=== PATIENT | female | born 1935 | race Caucasian/White ===

== ENCOUNTER 2023-08-03 23:16 | Emergency (ER) | payer MEDICARE, SELFPAY ==
--- NOTE | ~2023-08-03 | CT_ITS ---
EXAMINATION: CT HEAD WITHOUT CONTRAST CLINICAL INFORMATION: Fall. Pain. COMPARISON: None available. TECHNIQUE: Contiguous axial imaging was performed through the head, facial bones and cervical spine without intravenous administration of contrast. Sagittal and coronal reformatted images also obtained. This CT examination was performed using dose optimization techniques as appropriate, variously including the following: *Automated exposure control *Adjustment of mA and/or kV according to patient size (this includes techniques or standardized protocols for targeted exams where dose is matched to indication/reason for exam; i.e. extremities or head) *Use of iterative reconstruction technique DLP: 1344 mGy-cm FINDINGS: There is cerebral volume loss with prominence of the lateral and the third ventricles. The cortical sulci are widened appropriately. The fourth ventricle and basal cisterns are normally outlined. There is extensive bilateral periventricular and central white matter diminished attenuation. There is no acute territorial defect, hemorrhage or midline shift. The extra-axial spaces are unremarkable. Calvarium/scalp: Intact. Facial bones: No fracture is seen. The maxillofacial sinuses and mastoids are clear. Orbital structures are unremarkable. The soft tissues are grossly unremarkable. Cervical spine: There is grade 1 anterolisthesis C6 over C7. There is diffuse fpto-mn-zmkraqfn cervical disc degenerative change with loss of disc space, endplate change and posterior osteophytes associated with diffuse moderate facet osteoarthritic hypertrophic change with multilevel mild spinal canal and hlol-av-tsjtsckv neuroforaminal narrowing. The bony structures are osteopenic/heterogeneous. No fracture is seen. The soft tissues are unremarkable. Visualized upper lung graham are clear. CT/CT cervical spine wo IV con IMPRESSION: 1. No acute intracranial process seen. Age-related cerebral volume loss with chronic small vessel ischemic changes. 2. There is no acute maxillofacial, nasal or mandibular fracture. 3. Grade 1 anterolisthesis C6 over C7. There are degenerative disc changes and facet joint arthropathy throughout cervical spine. No visible acute fracture or dislocation seen.
--- NOTE | ~2023-08-03 | CT_ITS ---
EXAMINATION: CT HEAD WITHOUT CONTRAST CLINICAL INFORMATION: Fall. Pain. COMPARISON: None available. TECHNIQUE: Contiguous axial imaging was performed through the head, facial bones and cervical spine without intravenous administration of contrast. Sagittal and coronal reformatted images also obtained. This CT examination was performed using dose optimization techniques as appropriate, variously including the following: *Automated exposure control *Adjustment of mA and/or kV according to patient size (this includes techniques or standardized protocols for targeted exams where dose is matched to indication/reason for exam; i.e. extremities or head) *Use of iterative reconstruction technique DLP: 1344 mGy-cm FINDINGS: There is cerebral volume loss with prominence of the lateral and the third ventricles. The cortical sulci are widened appropriately. The fourth ventricle and basal cisterns are normally outlined. There is extensive bilateral periventricular and central white matter diminished attenuation. There is no acute territorial defect, hemorrhage or midline shift. The extra-axial spaces are unremarkable. Calvarium/scalp: Intact. Facial bones: No fracture is seen. The maxillofacial sinuses and mastoids are clear. Orbital structures are unremarkable. The soft tissues are grossly unremarkable. Cervical spine: There is grade 1 anterolisthesis C6 over C7. There is diffuse xobq-co-uagbnhyg cervical disc degenerative change with loss of disc space, endplate change and posterior osteophytes associated with diffuse moderate facet osteoarthritic hypertrophic change with multilevel mild spinal canal and xdwk-un-ymopjoqg neuroforaminal narrowing. The bony structures are osteopenic/heterogeneous. No fracture is seen. The soft tissues are unremarkable. Visualized upper lung graham are clear. CT/CT head/brain wo IV con IMPRESSION: 1. No acute intracranial process seen. Age-related cerebral volume loss with chronic small vessel ischemic changes. 2. There is no acute maxillofacial, nasal or mandibular fracture. 3. Grade 1 anterolisthesis C6 over C7. There are degenerative disc changes and facet joint arthropathy throughout cervical spine. No visible acute fracture or dislocation seen.
--- NOTE | ~2023-08-03 | CT_ITS ---
EXAMINATION: CT HEAD WITHOUT CONTRAST CLINICAL INFORMATION: Fall. Pain. COMPARISON: None available. TECHNIQUE: Contiguous axial imaging was performed through the head, facial bones and cervical spine without intravenous administration of contrast. Sagittal and coronal reformatted images also obtained. This CT examination was performed using dose optimization techniques as appropriate, variously including the following: *Automated exposure control *Adjustment of mA and/or kV according to patient size (this includes techniques or standardized protocols for targeted exams where dose is matched to indication/reason for exam; i.e. extremities or head) *Use of iterative reconstruction technique DLP: 1344 mGy-cm FINDINGS: There is cerebral volume loss with prominence of the lateral and the third ventricles. The cortical sulci are widened appropriately. The fourth ventricle and basal cisterns are normally outlined. There is extensive bilateral periventricular and central white matter diminished attenuation. There is no acute territorial defect, hemorrhage or midline shift. The extra-axial spaces are unremarkable. Calvarium/scalp: Intact. Facial bones: No fracture is seen. The maxillofacial sinuses and mastoids are clear. Orbital structures are unremarkable. The soft tissues are grossly unremarkable. Cervical spine: There is grade 1 anterolisthesis C6 over C7. There is diffuse pmbt-il-pugltqzo cervical disc degenerative change with loss of disc space, endplate change and posterior osteophytes associated with diffuse moderate facet osteoarthritic hypertrophic change with multilevel mild spinal canal and yoim-yp-eaetapta neuroforaminal narrowing. The bony structures are osteopenic/heterogeneous. No fracture is seen. The soft tissues are unremarkable. Visualized upper lung graham are clear. CT/CT facial bones wo IV con IMPRESSION: 1. No acute intracranial process seen. Age-related cerebral volume loss with chronic small vessel ischemic changes. 2. There is no acute maxillofacial, nasal or mandibular fracture. 3. Grade 1 anterolisthesis C6 over C7. There are degenerative disc changes and facet joint arthropathy throughout cervical spine. No visible acute fracture or dislocation seen.
[2023-08-03 23:16] VITALS: BP 152/100; BP 200/112; PULSE 66; PULSE 80; RESP 18; TEMP 36.3; O2SAT 95; O2SAT 96; BMI 24.6
--- NOTE | 2023-08-03 23:24 | PC.NURSE ---
pt biba from [facility], a&ox4, ambulatory off stretcher. reports onset of nose bleed 1 hour ago that was uncontrolled. bleeding now controlled at this time. pt reports having fall monday night and is noted to have large hematoma to the right eye. pt denies use of blood thinners.
--- NOTE | 2023-08-03 23:36 | PC.NURSE ---
pt nose began to slowly bleed again, alligator clamps placed on nose.
[2023-08-04] VITALS (7 sets, daily range): BP systolic 176–204; BP diastolic 90–107; PULSE 61–69; RESP 16–18; TEMP 36.4–36.7; O2SAT 94–97
[2023-08-04] MEDS: Labetalol HCL 100 MG/20 ML VIAL 10 MG IVPUSH (00:28)
[2023-08-04 00:30] LABS: MANUAL DIFF FLAG NO
[2023-08-04 00:34] LABS: Basophils Percent Auto 0.6 % (0-2); Eosinophils Absolute Auto 0.2 X10*3/uL (0.0-0.4); Eosinophils Percent Auto 3.8 % (0-4); Hematocrit 39.9 % (37.0-47.0); Hemoglobin 13.9 g/dl (12.0-16.0); Imm Gran Abs Auto 0.01 X10*3/uL (0.00-0.03); Imm Gran Pct Auto 0.2 % (0.0-0.4); Lymphocytes Absolute Auto 1.6 X10*3/uL (1.2-4.9); Lymphocytes Percent Auto 25.4 % (20-40); Mean Corpuscular HGB Conc 34.8 g/dl (31.0-35.0); Mean Corpuscular Hemoglobin 35.4 pg (27.0-33.0); Mean Corpuscular Volume 101.5 fL (80.0-98.0); Mean Platelet Volume 9.6 fL (9.4-12.3); Monocytes Absolute Auto 0.7 X10*3/uL (0.1-1.2); Neutrophils Absolute Auto 3.7 x10*3/uL (2.0-8.3); Platelet Count 188 X10*3/uL (160-400); Red Blood Count 3.93 X10*6/uL (4.20-5.50); Red Cell Distribution Width 11.4 % (11.0-16.0); White Blood Count 6.3 X10*3/uL (4.8-10.8)
--- NOTE | 2023-08-04 00:35 | ED_ITS ---
HPI - General Adult General Chief complaint: Epistaxis Stated complaint: epistaxis Time Seen by Provider: 08/03/23 23:50 Source: patient, RN notes reviewed and old records reviewed Mode of arrival: ambulatory Limitations: no limitations History of Present Illness HPI narrative: 88-year-old female past medical history significant for hypertension, hyperlipidemia presents for evaluation of nosebleed. Patient reports that her nose started to bleed of the right nostril 1 hour prior to arrival She is not on any blood thinners, aspirin or Plavix She reports that she fell 6 days ago on Monday after getting up to go to the bathroom in the middle of the night She struck the right side of her face when she fell She did not have any pain so she did not seek medical attention at that time She noticed bruising the following morning and redness around her eye She reports that she has felt well since the fall but today noticed a nosebleed that would not stop Patient continues to deny any pain including to the nose No other complaints or concerns at this time Related Data Allergies Allergy/AdvReac Type Severity Reaction Status Date / Time No Known Allergies Allergy Verified 08/03/23 23:21 [No Known Allergies*] Review of Systems 2 Constitutional: Constitutional: Denies body ache(s), Denies chills, Denies fever(s) and Denies headache(s) Eyes: Eyes: Denies blurry vision, Denies exophthalmos, Denies change in vision, Denies diplopia, Denies eye discharge and Denies eye pain Comments: Redness to the eye ENT: Denies dizziness, Denies headache(s) and Denies sore throat Cardiovascular: Cardiovascular: Denies chest pain and Denies dyspnea Respiratory: Respiratory: Denies cough and Denies dyspnea Gastrointestinal: Gastrointestinal: Denies abdominal pain, Denies nausea and Denies vomiting Genitourinary: Genitourinary: Denies flank pain Musculoskeletal: Musculoskeletal: Denies back pain Integumentary/Breasts: Skin/Breast: Denies rash Neurologic: Denies dizziness and Denies headache(s) Psychiatric: Psychiatric: Denies suicidal ideation [facility] Social History Social History Alcohol intake: current Alcohol intake frequency: holidays/special occasions only Smoked in Last 30 Days: No Use of substances other than those prescribed or required for medical reasons: No Advance Directives: No Advance Directives Information Provided: Yes Do you have a plan to hurt others: No Plan Physical Exam ED Vital Signs: Vital Signs - 24 hr 08/03/23 23:16 08/04/23 00:27 08/04/23 00:28 Temperature 97.3 F 97.6 F Pulse Rate 66 61 61 Respiratory Rate 18 17 Blood Pressure 200/112 H 204/107 H 204/107 H Pulse Oximetry 96 96 Oxygen Delivery Method Room Air Room Air 08/04/23 00:45 08/04/23 00:54 08/04/23 01:39 Temperature 98.0 F Pulse Rate 64 69 63 Respiratory Rate 18 16 18 Blood Pressure 190/91 H 179/90 H 193/95 H Pulse Oximetry 94 97 94 Oxygen Delivery Method Room Air Room Air Room Air BMI result Body Mass Index 24.6 Const General: healthy appearing, comfortable, no acute distress, alert and awake Nutritional Appearance: well nourished Orientation/consciousness: patient oriented x3 HENMT Other: Ecchymosis mostly to the right side of the face in the right periorbital region. There is some edema to the bridge of the nose with no lacerations or wounds Head: No normocephalic and No atraumatic Throat: Yes posterior oropharynx normal Eyes Periorbital: periorbital findings abnormal Eyelids: Yes eyelids normal Conjunctivae: conjunctival abnormal right subconjunctival hemorrhage Corneas: corneas normal Pupils: Equal, round and reactive pupils present EOM: EOMs intact bilaterally (Without entrapment, nystagmus or pain) Neck Neck: Yes full ROM Resp Effort & Inspection: normal respiratory effort, able to speak in complete sentences and not labored GI Inspection: No distended Palpation (GI): Soft to palpation, not firm, nontender, no guarding and not rigid Skin General skin exam: elasticity normal Neuro General: patient oriented x3 Cranial nerves: Yes CN's II-XII intact bilaterally, Yes Equal, round and reactive pupils present and Yes Bilaterally intact EOM present Cognition (Neuro): normal cognition Extrem Other: Moving all extremities well without any obvious deformities Course Reevaluation(s) Reevaluation #1: Patient's blood pressure has improved to 179/90. On re-evaluation, her epistaxis has stopped. Time: 01:21 Medications Administered Discontinued Medications Generic Name Dose Route Start Last Admin Trade Name Freq PRN Reason Stop Dose Admin Labetalol HCl 10 mg 08/03/23 23:59 08/04/23 00:28 Labetalol Hcl 100 Mg/20 Ml Vial IVPUSH 08/04/23 00:00 10 mg ONCE ONE Administration Medical Decision Making Medical Decision Making [facility] Narrative: 88-year-old female presents for evaluation of nosebleed. She had a fall 6 days ago but no other recent trauma. She has not anticoagulated for basic labs to check platelets, coags and blood counts. Her blood pressure is significantly elevated to 200/112 and this is likely contributing to her epistaxis at this time. The patient's epistaxis did sustain with direct pressure started shortly after as the patient was picking her nose. Plan to continue direct pressure. Will order CT scan of the brain, facial bones and cervical spine given the fall with obvious facial trauma Differential Diagnosis Differential Diagnoses: The differential diagnosis associated with the presentation includes Hypertension Hypertensive urgency Hypertensive crisis Nasal fracture Epistaxis Intracranial hemorrhage Cervical fracture Lab Data 08/04/23 00:24 08/04/23 00:24 Labs: Lab Results 08/04/23 Range/Units 00:24 WBC 6.3 (4.8-10.8) X10*3/uL RBC 3.93 L (4.20-5.50) X10*6/uL Hgb 13.9 (12.0-16.0) g/dl Hct 39.9 (37.0-47.0) % MCV 101.5 H (80.0-98.0) fL MCH 35.4 H (27.0-33.0) pg MCHC 34.8 (31.0-35.0) g/dl RDW 11.4 (11.0-16.0) % Plt Count 188 (160-400) X10*3/uL MPV 9.6 (9.4-12.3) fL Immature Gran % (Auto) 0.2 (0.0-0.4) % Neut % (Auto) 59.0 (45-73) % Lymph % (Auto) 25.4 (20-40) % [place] % (Auto) 11.0 (2-11) % Eos % (Auto) 3.8 (0-4) % Baso % (Auto) 0.6 (0-2) % Lymph # (Auto) 1.6 (1.2-4.9) X10*3/uL [place] # (Auto) 0.7 (0.1-1.2) X10*3/uL Eos # (Auto) 0.2 (0.0-0.4) X10*3/uL Baso # (Auto) 0.0 (0.0-0.2) X10*3/uL Abs Immat Gran (auto) 0.01 (0.00-0.03) X10*3/uL Absolute Neuts (auto) 3.7 (2.0-8.3) x10*3/uL Absolute Nucleated RBC 0.000 (0.0-0.012) X10*3/uL Nucleated RBC % (auto) 0.0 (0.0-0.2) /100WBC PT 13.2 (11.1-13.3) SEC INR 1.1 (0.9-1.1) APTT 29.5 (26.0-36.8) SEC Sodium 136 (135-145) mmol/L Potassium 3.7 (3.3-5.1) mmol/L Chloride 100 (96-108) mmol/L Carbon Dioxide 28 (22-29) mmol/L Anion Gap 12 (12-20) BUN 13 (9-16) mg/dL Creatinine 0.83 (0.5-1.4) mg/dL Estim Creat Clear Calc 38.5 Estimated GFR > 60 Random Glucose 106 (60-115) mg/dL Calcium 8.7 (8.4-10.2) mg/dL Total Bilirubin 0.4 (0.0-1.0) mg/dL AST 24 (5-31) U/L ALT 18 (0-31) U/L Alkaline Phosphatase 64 (39-117) U/L Total Protein 6.1 L (6.5-8.0) g/dL Albumin 3.6 (3.5-5.0) g/dL Lipase 33 (8-78) U/L Discharge Plan Discharge Clinical Impression: Epistaxis, RONDA (subconjunctival hemorrhage) Patient Disposition: Home, Self-Care Instructions: Nosebleed (ED) Additional Instructions: Your workup in the ER today was reassuring. Your CT scans did not show any significant traumatic injuries. Your blood pressure was significantly elevated today and improved with medication Follow-up with your outpatient providers to have your blood pressure checked If your nose starts to bleed again, you may use Afrin up to twice a day for 3 days You may also use a humidifier next to her bed at night which may help prevent nosebleeds Print Language: British
[2023-08-04 00:41] LABS: INTERNATIONAL NORM RATIO 1.1 (0.9-1.1); Prothrombin Time 13.2 SEC (11.1-13.3)
[2023-08-04 00:43] LABS: Partial Thromboplastin Time 29.5 SEC (26.0-36.8)
[2023-08-04 01:02] LABS: Alanine Aminotransferase 18 U/L (0-31); Albumin Level 3.6 g/dL (3.5-5.0); Alkaline Phosphatase 64 U/L (39-117); Anion Gap 12 (12-20); Aspartate Amino Transferase 24 U/L (5-31); Bilirubin Total 0.4 mg/dL (0.0-1.0); Blood Urea Nitrogen 13 mg/dL (9-16); Calcium 8.7 mg/dL (8.4-10.2); Carbon Dioxide 28 mmol/L (22-29); Chloride 100 mmol/L (96-108); Creatinine Clr Calc Pharmacy 38.5; Estimated Glomerular Filt Rate > 60; Glucose Random 106 mg/dL (60-115); Lipase 33 U/L (8-78); Potassium 3.7 mmol/L (3.3-5.1); Sodium 136 mmol/L (135-145); Total Protein 6.1 g/dL (6.5-8.0)
[2023-08-04] MEDS: Labetalol HCL 100 MG/20 ML VIAL IVPUSH (01:51)
== END 2023-08-04 02:22 | disposition home or self-care (01) ==
PROVIDERS: Physician Assistant; Emergency Provider Internal Medicine; PCP Internal Medicine
DX: R04.0 Epistaxis (principal); H11.31 Conjunctival hemorrhage, right eye; I10 Essential (primary) hypertension; Z91.81 History of falling
CPT/HCPCS: 36415; 70450; 70486; 72125; 80053; 83690; 85025; 85610; 85730; 96374; 96376; 99284; J1920

== ENCOUNTER 2023-12-07 20:53 | Emergency (ER) | payer MEDICARE, SELFPAY ==
--- NOTE | ~2023-12-07 | CT_ITS ---
EXAMINATION: CT HEAD WITHOUT CONTRAST CT CERVICAL SPINE WITHOUT CONTRAST CLINICAL INFORMATION: Fall. Altered mental status. COMPARISON: CT imaging from 08/04/2023. TECHNIQUE: Contiguous axial imaging was performed from the skullbase to vertex without intravenous administration of contrast. Multidetector helical imaging was performed through the cervical spine. This CT examination was performed using dose optimization techniques as appropriate, variously including the following: *Automated exposure control *Adjustment of mA and/or kV according to patient size (this includes techniques or standardized protocols for targeted exams where dose is matched to indication/reason for exam; i.e. extremities or head) *Use of iterative reconstruction technique DLP: 1075 mGy-cm. FINDINGS: HEAD: There is no evidence of acute intracranial hemorrhage or territorial infarction. No abnormal mass effect or midline shift is seen. No extra-axial fluid collections are identified. Moderate diffuse brain parenchymal volume loss again evident with stable ex vacuo prominence of the ventricles. 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 Moderate to severe chronic white matter microangiopathy noted. The osseous structures and soft tissues are normal. The mastoid air cells and visualized portions of the paranasal sinuses are well aerated. Moderate degenerative changes of the temporomandibular joints. CERVICAL SPINE: No acute fracture is identified in the cervical spine significant disc space narrowing retrosubluxation again evident at the C5-C6 level. Stable mild anterolisthesis at the C7-T1 level. Advanced multilevel hypertrophic facet arthropathy is unchanged. Diffuse bony demineralization evident. There is severe spondylosis exuberant endplate eburnation at the T2-T3 level. The atlantoaxial articulation is normally maintained. Mild scattered areas of venous air in the neck soft tissues. Subsegmental atelectatic changes in the lungs. CT/CT cervical spine wo IV con IMPRESSION: 1. No acute intracranial pathology. 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 2. No evidence of acute cervical spine traumatic injury. Multilevel cervical spondylosis, most severe at the C5-C6 level, as on prior imaging. Diffuse bony demineralization. Exuberant facet arthrosis. Electronically signed by: Alvin Doll MD 12/07/2023 09:45 PM EDT
[2023-12-07 21:18] VITALS: BP 129/86; PULSE 60; O2SAT 98
[2023-12-07 21:18] LABS: MANUAL DIFF FLAG NO
[2023-12-07 21:22] LABS: Basophils Percent Auto 0.7 % (0-2); Eosinophils Absolute Auto 0.2 X10*3/uL (0.0-0.4); Eosinophils Percent Auto 2.8 % (0-4); Hematocrit 35.7 % (37.0-47.0); Hemoglobin 12.5 g/dl (12.0-16.0); Imm Gran Abs Auto 0.01 X10*3/uL (0.00-0.03); Imm Gran Pct Auto 0.2 % (0.0-0.4); Lymphocytes Absolute Auto 1.5 X10*3/uL (1.2-4.9); Lymphocytes Percent Auto 23.9 % (20-40); Mean Corpuscular Hemoglobin 33.2 pg (27.0-33.0); Mean Corpuscular Volume 94.7 fL (80.0-98.0); Mean Platelet Volume 9.2 fL (9.4-12.3); Monocytes Absolute Auto 0.7 X10*3/uL (0.1-1.2); Neutrophils Absolute Auto 3.7 x10*3/uL (2.0-8.3); Neutrophils Percent Auto 61.4 % (45-73); Platelet Count 178 X10*3/uL (160-400); Red Blood Count 3.77 X10*6/uL (4.20-5.50); Red Cell Distribution Width 12.7 % (11.0-16.0); White Blood Count 6.1 X10*3/uL (4.8-10.8)
[2023-12-07 21:23] VITALS: BP 115/66; PULSE 55; RESP 16; TEMP 36.3; O2SAT 94
[2023-12-07 21:38] LABS: Ethanol 238 mg/dL
[2023-12-07 21:42] LABS: Alanine Aminotransferase 12 U/L (0-31); Albumin Level 3.3 g/dL (3.5-5.0); Alkaline Phosphatase 66 U/L (39-117); Anion Gap 10 (12-20); Aspartate Amino Transferase 19 U/L (5-31); Bilirubin Direct 0.2 mg/dL (0.0-0.5); Bilirubin Total 0.4 mg/dL (0.0-1.0); Blood Urea Nitrogen 7 mg/dL (9-16); Calcium 8.2 mg/dL (8.4-10.2); Carbon Dioxide 27 mmol/L (22-29); Chloride 102 mmol/L (96-108); Estimated Glomerular Filt Rate > 60; Glucose Random 98 mg/dL (60-115); Magnesium 1.9 mg/dL (1.6-2.6); Potassium 3.4 mmol/L (3.3-5.1); Sodium 136 mmol/L (135-145); Total Protein 5.7 g/dL (6.5-8.0)
[2023-12-07 21:55] VITALS: BP 121/67; PULSE 53; RESP 16; TEMP -17.7; TEMP 0; O2SAT 93; BMI 24.5
--- NOTE | 2023-12-08 00:11 | ED.FALL ---
HPI - Fall General Chief Complaint: Fall Stated Complaint: ETOH w/ fall,ams Time Seen by Provider: 12/07/23 23:56 Source: patient, family and EMS Mode of arrival: EMS Limitations: physical limitation History of Present Illness ED Provider: Dr. Shona Canales HPI Narrative: Patient comes to the emergency room via ambulance from assisted living for a fall. Patient admits that she has been drinking alcohol and fell. Per EMS, there was 1 empty bottle of wine next to the patient. Patient had an unwitnessed fall, denies taking any blood thinners. Patient's family at bedside. Related Data Allergies Allergy/AdvReac Type Severity Reaction Status Date / Time No Known Allergies Allergy Verified 12/07/23 21:57 [No Known Allergies*] Review of Systems Review of Systems: Constitutional : No Weight loss, No Fever, No Chills, No Night Sweats, No Fatigue, No Malaise ENT/Mouth : No Hearing loss, No Ear Pain, No Nasal Congestion, No Sinus Pain, No Hoarseness, No sore throat, No Rhinorrhea, No Swallowing Difficulty Eyes: No Eye Pain, No Swelling, No Redness, No Foreign Body, No Discharge, No Vision Changes Cardiovascular : No Chest Pain, No SOB, No Dyspnea on Exertion, No Orthopnea, No Edema, No Palpitations Respiratory : No Cough, No Sputum, No Wheezing, No Smoke Exposure, No Dyspnea Gastrointestinal : No Nausea, No Vomiting, No Diarrhea, No Constipation, No abdominal Pain, No Hematochezia, No Melena Genitourinary : no irregular bleeding, No Dysuria, No Urinary Frequency, No Hematuria, No Urinary Incontinence, No Urgency, No Flank Pain, No Urinary Flow Changes, No Hesitancy Musculoskeletal : No joint pain, No Myalgias, No Joint Swelling Skin : No Skin Lesions, No rash Neuro : No Weakness, No Numbness, No Paresthesias, No Loss of Consciousness, No Dizziness, No Headache Psych : No Anxiety/Panic, No Depression, No SI/HI/AH/VH, admits to drinking a lot of alcohol Heme/Lymph: No Bruising, No Bleeding,No Lymphadenopathy Endocrine : No Polyuria, No Polydipsia, No Temperature Intolerance PMFSH Past Medical History Medical History Hyperlipidemia Hypothyroidism Hypertension Social History Social History Alcohol intake: current Alcohol intake frequency: holidays/special occasions only Advance Directives: Yes Advance Directives Information Provided: No Advance Directives on File: No Do you have a plan to hurt others: No Plan Physical Exam Vital Signs: Vital Signs: Last Vital Signs Temp 0 F L 12/07/23 21:55 Pulse 53 12/07/23 21:55 Resp 16 12/07/23 21:55 BP 121/67 12/07/23 21:55 Pulse Ox 93 12/07/23 21:55 O2 Del Method Room Air 12/07/23 21:55 BMI result Body Mass Index 24.5 Medical Decision Making Medical Decision Making MDM Narrative: My interpretation of CT scan, no obvious intracranial bleed, cervical spine no obvious fracture. -my interpretation of labs, normal hematology and chemistry, normal LFTs, ETOH 238 -patient's family at bedside. Patient is still a intoxicated, wobbly walking. The family states that they can not watch her overnight, patient will be staying by herself. I discussed with the patient that it would be unsafe to leave her alone overnight. Patient's daughter can not take care of her either overnight. Plan: Will keep the patient until she was more sober and they will pick her up in the morning -physician observation started at 00:20 Lab Data [facility] Lab Attestation statement: I reviewed the patient's lab results. 12/07/23 21:12 12/07/23 21:12 Labs: Lab Results 12/07/23 Range/Units 21:12 WBC 6.1 (4.8-10.8) X10*3/uL RBC 3.77 L (4.20-5.50) X10*6/uL Hgb 12.5 (12.0-16.0) g/dl Hct 35.7 L (37.0-47.0) % MCV 94.7 (80.0-98.0) fL MCH 33.2 H (27.0-33.0) pg MCHC 35.0 (31.0-35.0) g/dl RDW 12.7 (11.0-16.0) % Plt Count 178 (160-400) X10*3/uL MPV 9.2 L (9.4-12.3) fL Immature Gran % (Auto) 0.2 (0.0-0.4) % Neut % (Auto) 61.4 (45-73) % Lymph % (Auto) 23.9 (20-40) % [place] % (Auto) 11.0 (2-11) % Eos % (Auto) 2.8 (0-4) % Baso % (Auto) 0.7 (0-2) % Lymph # (Auto) 1.5 (1.2-4.9) X10*3/uL [place] # (Auto) 0.7 (0.1-1.2) X10*3/uL Eos # (Auto) 0.2 (0.0-0.4) X10*3/uL Baso # (Auto) 0.0 (0.0-0.2) X10*3/uL Abs Immat Gran (auto) 0.01 (0.00-0.03) X10*3/uL Absolute Neuts (auto) 3.7 (2.0-8.3) x10*3/uL Absolute Nucleated RBC 0.000 (0.0-0.012) X10*3/uL Nucleated RBC % (auto) 0.0 (0.0-0.2) /100WBC Sodium 136 (135-145) mmol/L Potassium 3.4 (3.3-5.1) mmol/L Chloride 102 (96-108) mmol/L Carbon Dioxide 27 (22-29) mmol/L Anion Gap 10 L (12-20) BUN 7 L (9-16) mg/dL Creatinine 0.76 (0.5-1.4) mg/dL Estim Creat Clear Calc TNP Estimated GFR > 60 Random Glucose 98 (60-115) mg/dL Calcium 8.2 L (8.4-10.2) mg/dL Magnesium 1.9 (1.6-2.6) mg/dL Total Bilirubin 0.4 (0.0-1.0) mg/dL Direct Bilirubin 0.2 (0.0-0.5) mg/dL AST 19 (5-31) U/L ALT 12 (0-31) U/L Alkaline Phosphatase 66 (39-117) U/L Total Protein 5.7 L (6.5-8.0) g/dL Albumin 3.3 L (3.5-5.0) g/dL Ethyl Alcohol 238 mg/dL Independent Interpretation I performed an independent interpretation of an: CT Scan Radiology Impression Discussion of test interpretation with radiology: I have reviewed the radiologist's reading. Radiologist Impression: HEAD: There is no evidence of acute intracranial hemorrhage or territorial infarction. No abnormal mass effect or midline shift is seen. No extra-axial fluid collections are identified. Moderate diffuse brain parenchymal volume loss again evident with stable ex vacuo prominence of the ventricles. 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 Moderate to severe chronic white matter microangiopathy noted. The osseous structures and soft tissues are normal. The mastoid air cells and visualized portions of the paranasal sinuses are well aerated. Moderate degenerative changes of the temporomandibular joints. CERVICAL SPINE: No acute fracture is identified in the cervical spine significant disc space narrowing retrosubluxation again evident at the C5-C6 level. Stable mild anterolisthesis at the C7-T1 level. Advanced multilevel hypertrophic facet arthropathy is unchanged. Diffuse bony demineralization evident. There is severe spondylosis exuberant endplate eburnation at the T2-T3 level. The atlantoaxial articulation is normally maintained. Mild scattered areas of venous air in the neck soft tissues. Subsegmental atelectatic changes in the lungs. CT/CT head/brain wo IV con IMPRESSION: 1. No acute intracranial pathology. 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 2. No evidence of acute cervical spine traumatic injury. Multilevel cervical spondylosis, most severe at the C5-C6 level, as on prior imaging. Diffuse bony demineralization. Exuberant facet arthrosis. Critical Care Time Critical Care Time Critical Care Time: Yes Total Critical Care Time: 30 Attestation: I have personally provided critical care time. Time includes review of lab data, radiology results, discussion with consultants, and monitoring for potential decompensation. Intervention performed as documented. Discharge Plan Discharge Clinical Impression: Fall, Contusion, Alcohol intoxication Patient Disposition: Still a Patient Instructions: Alcohol Intoxication (ED), Fall Prevention for Older Adults (ED) Additional Instructions: Please follow-up with your primary care physician tomorrow. If you have any worsening or new symptoms, please return to the emergency room or call 911 Print Language: Thai
[2023-12-08 00:34] LABS: Appearance Urine Clear; Color Urine Yellow; Glucose Urine UA Negative (Negative); Leukocyte Esterase Urine Moderate (2+) (Negative); Nitrite Urine Positive (Negative); PH 5.5 (5.0-9.0); Specific Gravity - Urine <= 1.005 (1.005-1.025); UMIC TRIGGER UACC YES; Urine Blood Negative (Negative); Urine Ketones Negative (Negative); Urine Protein Negative (Neg-Trace)
[2023-12-08 00:39] LABS: Bacteria Urine 4+ (None Seen); Hyaline Casts Urine 0-2 /LPF (0-2); RBC Urine 0-2 /HPF (0-2); Squamous Epithelial Cell Urine 0-2 /HPF (0-2); UACC Culture Trigger YES; WBC Urine 21-50 /HPF (0-5)
[2023-12-08 00:47] LABS: Amphetamine Screen Urine Not Detected (Not Detect); Barbiturates, Urine Not Detected (Not Detect); Benzodiazepines Screen Urine Not Detected (Not Detect); Buprenorphine Scr Not Detected (Not Detect); Cannabinoid Screen Urine Not Detected (Not Detect); Cocaine Screen Urine Not Detected (Not Detect); Fentanyl, urine Not Detected (Not Detect); Methadone Screen, Urine Not Detected (Not Detect); Opiate Screen Urine Not Detected (Not Detect); Oxycodone Screen Urine Not Detected (Not Detect); Phencyclidine Screen Urine Not Detected (Not Detect)
[2023-12-08 06:04] VITALS: BP 134/78; PULSE 84; RESP 18; TEMP 36.7; O2SAT 96
--- NOTE | 2023-12-08 06:38 | PC.NURSE ---
this rn assumed care of pt, pt alert and ambulatory at this time, pt has camera and chair alarm in place.
[2023-12-08] MEDS: cefuroxime axetiL 250 MG TABLET PO (06:42)
--- NOTE | 2023-12-08 06:43 | PC.NURSE ---
pt medicated per mar, tolerated well with water.
[2023-12-08 08:32] VITALS: BP 186/79; PULSE 54; RESP 14; TEMP 36.7; O2SAT 95
[2023-12-08 08:34] VITALS: BP 172/91
--- NOTE | 2023-12-08 08:38 | PC.NURSE ---
Pt sits up in bed, asks to make a phone call. No signs of outward distress, denies pain or complaints. Breathing even and unlabored. Camera remains in place.
[2023-12-08 10:12] VITALS: BP 148/70; PULSE 60; RESP 16; TEMP 37; O2SAT 97
== END 2023-12-08 10:13 | disposition home or self-care (01) ==
PROVIDERS: Physician Assistant; Emergency Provider Emergency Medicine; PCP Internal Medicine
DX: F10.920 Alcohol use, unspecified with intoxication, uncomplicated (principal); Y90.7 Blood alcohol level of 200-239 mg/100 ml; T14.8XXA Other injury of unspecified body region, initial encounter; W19.XXXA Unspecified fall, initial encounter; R41.82 Altered mental status, unspecified; I10 Essential (primary) hypertension; E78.5 Hyperlipidemia, unspecified; Y93.9 Activity, unspecified; Y92.099 Unspecified place in other non-institutional residence as the place of occurrence of the external cause; Y99.9 Unspecified external cause status
CPT/HCPCS: 36415; 70450; 72125; 80048; 80076; 80307; 81001; 83735; 85025; 87086; 87088; 87186; 99284

== ENCOUNTER 2023-12-10 20:15 | Emergency (ER) | payer MEDICARE, SELFPAY ==
[2023-12-10 20:32] VITALS: BP 158/92; PULSE 70; O2SAT 96
[2023-12-10 20:42] VITALS: BP 156/81; PULSE 60; RESP 16; TEMP 36.7; O2SAT 92
[2023-12-10 20:45] VITALS: BP 156/81; PULSE 58; RESP 16; TEMP 36.7; O2SAT 97; BMI 22.5
--- NOTE | 2023-12-10 20:46 | MHC.EDTECH ---
This tech assumed care of this pt upon arrival. pt changed over into a hospital gown and given hospital socks
--- NOTE | 2023-12-10 21:05 | ED.EPISTAXIS ---
History of Present Illness General Chief Complaint: Epistaxis Stated Complaint: Uncontrolled epistaxis x1 hr, hx HTN Time Seen by Provider: 12/10/23 21:03 Source: patient Mode of arrival: EMS Limitations: no limitations History of Present Illness HPI Narrative: Patient Uses Flonase for nasal congestion earlier today she does not remember likely she had a scab which she removed started bleeding from the right nostril patient was seen here on 12/06 alcohol at that time labs were stable platelet count 178 K had bleeding from the nose once in the past Related Data Previous Rx's ?Medication ?Instructions ?Recorded cefuroxime axetil 250 mg tablet 250 mg PO BID 7 days #14 tabs 12/08/23 Allergies Allergy/AdvReac Type Severity Reaction Status Date / Time No Known Allergies Allergy Verified 12/10/23 20:48 [No Known Allergies*] Review of Systems Review of Systems: Yes all other systems are reviewed and are negative [facility] Past Medical History Medical History Hyperlipidemia Hypothyroidism Hypertension Social History Social History Alcohol intake: current Alcohol intake frequency: holidays/special occasions only Alcohol type: wine Advance Directives: No Advance Directives Information Provided: No Physical Exam Vital Signs: Vital Signs: Last Vital Signs Temp 98.1 F 12/10/23 21:52 Pulse 58 12/10/23 21:52 Resp 16 12/10/23 21:52 BP 156/81 H 12/10/23 21:52 Pulse Ox 97 12/10/23 21:52 O2 Del Method Room Air 12/10/23 21:52 BMI result Body Mass Index 22.5 Appearance: Alert. Oriented X3. No acute distress. Eyes: PERRLA, No Nystagmus ENT: Pharynx normal. Right nostril on the septum Little's area with clotted blood Oral Mucosa moist Neck: Normal inspection. Neck supple. CVS: Normal heart rate and rhythm. Pulses normal. Respiratory: No respiratory distress. Equal air entry bilateral, no wheezing/rales/rhonchi Abdomen: Soft and nontender. Bowel sounds are present, no mass palpable, no CVA tenderness Skin: Skin warm and dry. Normal skin color. Normal skin turgor. Extremities: No lower extremity edema. No calf tenderness Neuro: Oriented X 3. No motor deficit. Medications Administered Discontinued Medications Generic Name Dose Route Start Last Admin Trade Name Tan PRN Reason Stop Dose Admin Silver Nitrate 1 appl 12/10/23 21:10 12/10/23 21:36 Silver Nitrate Applicator Stick..Ea. TOPICAL 12/10/23 21:11 1 appl ONCE ONE Administration Medical Decision Making Medical Decision Making MDM Narrative: Patient bleeding from the anterior right nasal septum from Little's area which was cauterized with silver nitrate no active bleeding at this time will discharge patient home Procedures Epistaxis Control Time Out Performed: Yes Nostril: Yes right Nose prepped with: Yes other (Silver nitrate) Direct inspection: Yes anterior source identified Direct inspection method: Yes nasal speculum Epistaxis treatment: Yes silver nitrate cautery Results of treatment: Yes bleeding controlled Complications: Yes none Discharge Plan Discharge Clinical Impression: Epistaxis Patient Disposition: Home, Self-Care Instructions: Nosebleed (ED) Additional Instructions: Care as advised Do not use nasal spray on right nostril until it heals completely Prescriptions: No Action cefuroxime axetil 250 mg tablet 250 mg PO BID 7 Days Qty: 14 0RF Interventions: ED Discharge Assessment Last Done: 12/10/23 21:52 Discharge Date/Time: 12/10/23 21:53 Print Language: American
--- OUTSIDE RECORDS SUMMARY | 2023-12-10 21:09 | XMS_ITS | Continuity of Care Document ---
Author Organization [facility] Address [address] [place] [address]- Care Team Providers Care Sales Support Consultant Name Role Phone Orlin Hollingsworth MD Primary Care Physician Encounter [facility] Date(s): 08/31/21 - 09/30/21 [facility] [address], [place] [address] Allergies, Adverse Reactions, Alerts No Known Medication Allergies Immunizations Given and Recorded Vaccine Date Status Refusal Reason SARS-CoV-2 (COVID-19) mRNA BNT-162b2 vac 12/21/20 Recorded SARS-CoV-2 (COVID-19) mRNA BNT-162b2 vac 05/14/20 Recorded SARS-CoV-2 (COVID-19) mRNA BNT-162b2 vac 04/23/20 Recorded SARS-CoV-2 (COVID-19) mRNA BNT-162b2 vac 03/24/20 Recorded SARS-CoV-2 (COVID-19) mRNA BNT-162b2 vac 04/21/18 Recorded pneumococcal 23-valent vaccine 12/02/20 Recorded pneumococcal 23-valent vaccine 1 10/31/16 Given influenza virus vaccine, inactivated 12/02/20 César rded influenza virus vaccine, inactivated 2 11/06/19 Re corded influenza virus vaccine, inactivated 11/06/19 César rded influenza virus vaccine, inactivated 3 11/09/18 Re corded influenza virus vaccine, inactivated 12/29/17 César rded influenza virus vaccine, inactivated 4 11/13/17 Gi stanford influenza virus vaccine, inactivated 5 11/08/16 Gi [place]ford influenza virus vaccine, inactivated 11/25/15 César rded influenza virus vaccine, inactivated 11/28/14 César rded zoster vaccine, inactivated 12/29/17 Recorded Zoster Vaccine Live 6 10/17/17 Given Zoster Vaccine Live 7 06/15/15 Given pneumococcal 13-valent vaccine 8 06/15/15 Given tetanus-diphtheria toxoids (Td) 9 08/20/14 Given 1Result Comment: [10/31/2016] given w/out incident [facility] 3Result Comment: [facility] 4Admin Note: done [facility] recieved fluzone given 5Admin Note: [facility] received 6Admin Note: [facility] shingrix given 7Admin Note: [facility], in system 8Admin Note: done @ [facility], in system 9Admin Note: done @ [facility] received Medications atenolol 100 mg oral tablet 1 tablet, By Mouth, Daily, # 90 tablet, 0 Refills, [facility] #[id number], 152.4, cm, 08/24/2213:15:00 EDT, Height Start Date: 09/15/21 Status: Ordered atorvastatin 40 mg oral tablet 1 tablet, By Mouth, Daily, DUPLICATE FROM 08/03/20., # 90 tablet, 1 Refills, [facility] #[id number], 152.4, cm, 02/09/21 15:32:00 EST, Height Start Date: 05/17/21 Status: Ordered Centrum Silver 1 tablet, By Mouth, Daily, 0 Refills, Maintenance, 06/12/15 17:52:27 Start Date: 06/12/15 Stop Date: 07/12/15 Status: Ordered levothyroxine 0.05 mg oral tablet 1 tablet, By Mouth, Daily, # 90 tablet, 1 Refills, [facility] #[id number], 152.4, cm, 02/09/2115:32:00 EST, Height Start Date: 04/03/21 Status: Ordered lisinopril 10 mg oral tablet 10 mg, 1, tablet, By Mouth, Daily in AM, # 90 tablet, Refills 3, Tot. Refills 3, Maintenance, 12/25/20 11:05:00 EDT, Route to Pharmacy Electronically, [facility] #[id number], Partial fill upon patient request if the prescription is for a schedule... Start Date: 12/25/20 Stop Date: 12/20/21 Status: Ordered sertraline 50 mg oral tablet See Instructions, 2 tablets By Mouth Daily for 1 week, then 1 tablet daily x 2 weeks, then 1/2 tablet daily for 2 weeks then stop, # 35 tablet, 0 Refills, Maintenance, 08/24/21 14:37:00 EDT, Tablet, [facility] #[id number], weaning dose, 152.4, cm... Start Date: 08/24/21 Status: Ordered venlafaxine 37.5 mg oral capsule, extended release 37.5 mg, 1, capsule, By Mouth, Daily, start only after 4 weeks, # 30 capsule, Refills 3, Tot. Refills 3, Maintenance, 08/24/21 14:40:00 EDT, Route to Pharmacy Electronically, [facility] #[id number], Partial fill upon patient request if the prescr... Start Date: 08/24/21 Stop Date: 12/22/21 Status: Ordered Problem List Condition Effective Dates Status Health Status Inform ant Alcohol abuse(Confirmed) Active Anxiety(Confirmed) Active Depression(Confirmed) Active Diverticulosis of colon(Confirmed) Active Family history of esophageal cancer (dad)(Confirmed) Active Family history of breast can cer (sister)(Confirmed) Active Family history of anxiety di sorder (mom)(Confirmed) Active Family history of stroke (mom)(Confirmed) Active Family history of hypertensi on (mom)(Confirmed) Active S/P tonsillectomy(Confirmed) Active Hypercholesterolemia(Confirmed) Active Hypertension(Confirmed) Active Hypothyroidism(Confirmed) Active Insomnia(Confirmed) Active Pulmonary nodules(Confirmed) 1 06/03/17 Active Restless leg syndrome(Confirmed) Active 1CT chest at [facility] Social History Social History Type Response Smoking Status Never (less than 100 in lifetime) entered on: 06/27/19 Sex
--- OUTSIDE RECORDS SUMMARY | 2023-12-10 21:09 | XMS_ITS | Continuity of Care Document ---
Author Organization [facility] Address [address] [place] [address]- Care Team Providers Care Electrical Transmission Engineer Name Role Phone Orlin Hollingsworth MD Primary Care Physician Encounter [facility] Date(s): 08/08/23 - 09/24/23 [facility] [address] [place], [place] [address] Attending Physician: Orlin Hollingsworth MD Allergies, Adverse Reactions, Alerts No Known Medication Allergies Immunizations Given and Recorded Vaccine Date Status Refusal Reason influenza virus vaccine, inactivated 12/23/22 César rded influenza virus vaccine, inactivated 12/31/21 César rded influenza virus vaccine, inactivated 12/02/20 César rded influenza virus vaccine, inactivated 1 11/06/19 Re corded influenza virus vaccine, inactivated 11/06/19 César rded influenza virus vaccine, inactivated 2 11/09/18 Re corded influenza virus vaccine, inactivated 12/29/17 César rded influenza virus vaccine, inactivated 3 11/13/17 Gi st[facility]ford influenza virus vaccine, inactivated 4 11/08/16 Gi [facility] influenza virus vaccine, inactivated 11/25/15 César rded influenza virus vaccine, inactivated 11/28/14 César rded SARS-CoV-2(COVID-19)mRNA-LNP vac([id number]) 12/23/22 Recorded [id number] 12y+ bivalent booster vax 09/15/22 Recorded [id number] 12y+ bivalent booster vax 12/31/21 Recorded SARS-CoV-2 (COVID-19) mRNA BNT-162b2 vac 12/21/20 Recorded SARS-CoV-2 (COVID-19) mRNA BNT-162b2 vac 05/14/20 Recorded SARS-CoV-2 (COVID-19) mRNA BNT-162b2 vac 04/23/20 Recorded SARS-CoV-2 (COVID-19) mRNA BNT-162b2 vac 03/24/20 Recorded SARS-CoV-2 (COVID-19) mRNA BNT-162b2 vac 04/21/18 Recorded pneumococcal 23-valent vaccine 12/02/20 Recorded pneumococcal 23-valent vaccine 5 10/31/16 Given zoster vaccine, inactivated 12/29/17 Recorded Zoster Vaccine Live 6 10/17/17 Given Zoster Vaccine Live 7 06/15/15 Given pneumococcal 13-valent vaccine 8 06/15/15 Given tetanus-diphtheria toxoids (Td) 9 08/20/14 Given 1[facility] Comment[facility] 2Result Comment: [facility] 3Admin Note: done [facility] recieved fluzone given 4Admin Note: done [facility] form received 5Result Comment: [10/31/2016] given w/out incident 6Admin Note: [facility] shingrix given 7Admin Note: [facility], in system 8Admin Note: done [facility], in system 9Admin Note: done @ [facility] form received Medications amLODIPine 2.5 mg oral tablet 2.5 mg, 1, tablet, By Mouth, Daily at bedtime, # 30 tablet, Refills 3, Tot. Refills 3, Maintenance,08/10/23 7:37:00 EDT, Route to Pharmacy Electronically, [facility] #[id number], Partial fill upon patient request if the prescription is for a hernandez... Start Date: 08/10/23 Stop Date: 12/08/23 Status: Ordered atenolol 100 mg oral tablet 1 tablet, By Mouth, Daily, # 90 tablet, 3 Refills, Maintenance, 09/06/22 10:55:00 EDT, [facility] #[id number], 152.4, cm, 09/06/22 10:53:00 EDT, Height Start Date: 09/06/22 Stop Date: 09/01/23 Status: Ordered atorvastatin 40 mg oral tablet 1 tablet, By Mouth, Daily, # 90 tablet, 1 Refills, Maintenance, 08/07/23 14:17:00 EDT, [facility] #[id number], 152.4, cm, 03/23/23 14:42:00 EST, Height Start Date: 08/07/23 Status: Ordered busPIRone 10 mg oral tablet 10 mg, 1, tablet, By Mouth, Daily at bedtime, # 90 tablet, Refills 1, Tot. Refills 1, Maintenance, 08/15/23 15:55:00 EDT, Route to Pharmacy Electronically, [facility] #[id number], Partial fill upon patient request if the prescription is for a hernandez... Start Date: 08/15/23 Stop Date: 02/11/24 Status: Ordered Centrum Silver 1 tablet, By Mouth, Daily, 0 Refills, Maintenance, 06/12/15 17:52:27 Start Date: 06/12/15 Stop Date: 07/12/15 Status: Ordered levothyroxine 0.05 mg oral tablet 1 tablet, By Mouth, Daily, # 90 tablet, 3 Refills, Maintenance, 09/06/22 10:56:00 EDT, [facility] #[id number], 152.4, cm, 09/06/22 10:53:00 EDT, Height Start Date: 09/06/22 Stop Date: 09/01/23 Status: Ordered lisinopril 30 mg oral tablet 1 tablet = 30 mg, By Mouth, Daily, # 90 tablet, 4 Refills, Maintenance, 09/06/22 10:55:00 EDT, Tablet, [facility] #[id number], increase in dose, 152.4, cm, 09/06/22 10:53:00 EDT, Height Start Date: 09/06/22 Stop Date: 11/30/23 Status: Ordered venlafaxine 75 mg oral capsule, extended release 75 mg, 1, capsule, By Mouth, Daily, # 90 capsule, Refills 1, Tot. Refills 1, Maintenance, 07/26/23 11:09:00 EDT, Route to Pharmacy Electronically, [facility] #[id number], dose lowered back down., 152.4, cm, 03/23/23 14:42:00 EST, Height Start Date: 07/26/23 Stop Date: 01/22/24 Status: Ordered Problem List Condition Confirmation Course Effective Dates Status Health Status Informant Alcohol abuse Confirmed Active Diverticulosis of colon Confirmed Active Family history of esophageal cancer (dad) Confirmed Active Family history of breast cancer (sister) Confirmed Active Family history of anxiety disorder (mom) Confirmed Active Family history of stroke (mom) Confirmed Active Family history of hypertension (mom) Confirmed Active Generalized anxiety disorder Confirmed Active S/P tonsillectomy Confirmed Active Hypercholesterolemia Confirmed Active Hyperglycemia Confirmed 08/30/22 Active 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 Hypothyroidism Confirmed Active Insomnia Confirmed Active Pulmonary nodules 1 Confirmed 06/03/17 Active Depression, major, recurrent, mild Confirmed Active Restless leg syndrome Confirmed Active 1CT chest at [facility] Social History Social History Type Response Smoking Status Never (less than 100 in lifetime) entered on: 06/27/19 Sex Patient Care team information Care Team Personnel Name: Orlin Hollingsworth MD Position: [facility] Physician - Primary Care Member Role: PCP Address: Address: [address] [place] [address] Adult [facility] [place] [address]- Care Team Related Persons Name: DERRELL FLORES Name: LACY BARGER Address: home [address] [place] [id number]
--- OUTSIDE RECORDS SUMMARY | 2023-12-10 21:09 | XMS_ITS | Continuity of Care Document ---
Author Organization [facility] Address [address] [place] [address]- Care Team Providers Care Strategy Consultant Name Role Phone Orlin Hollingsworth MD Primary Care Physician [facility] Date[facility]s): 05/17/19 - 05/27/19 [facility] [address] [place] [address]- [facility] Attending Physician: Eleazar Jackson Admitting Physician: Eleazar Jackson Referring Physician: AdmtrEleazar Allergies, Adverse Reactions, Alerts No Known Medication Allergies Immunizations Given and Recorded Vaccine Date Status Refusal Reason influenza virus vaccine, inactivated 1 11/09/18 Re corded influenza virus vaccine, inactivated 12/29/17 César rded influenza virus vaccine, inactivated 2 11/13/17 Gi stanford influenza virus vaccine, inactivated 3 11/08/16 Gi st[place]ford Zoster Vaccine Live 4 10/17/17 Given Zoster Vaccine Live 5 06/15/15 Given pneumococcal 23-valent vaccine 6 10/31/16 Given pneumococcal 13-valent vaccine 7 06/15/15 Given tetanus-diphtheria toxoids (Td) 8 08/20/14 Given 1Result Comment: done @ [facility] 2Admin Note: [facility] recieved fluzone given 3Admin Note: [facility] received 4Admin Note: [facility] shingrix given 5Admin Note: [facility], in system 6Result Comment: [10/31/2016] given w/out incident 7Admin Note: done @ [facility], in system 8Admin Note: done @ [facility] received Medications atenolol 100 mg oral tablet 1 tablet = 100 mg, By Mouth, Daily, # 90 tablet, 1 Refills, Maintenance, 12/10/18 10:01:10 EDT, Tablet Start Date: 12/10/18 Stop Date: 06/08/19 Status: Ordered atorvastatin 40 mg oral tablet 1 tablet = 40 mg, By Mouth, Daily, # 90 tablet, 3 Refills, Maintenance, Tablet, Route to Pharmacy Electronically, [id number], [facility] [address] Start Date: 05/31/18 Stop Date: 05/26/19 Status: Ordered Centrum Silver 1 tablet, By Mouth, Daily, 0 Refills, Maintenance, 06/12/15 17:52:27 Start Date: 06/12/15 Stop Date: 07/12/15 Status: Ordered levothyroxine 0.05 mg oral tablet 1 tablet = 50 mcg, By Mouth, Daily, # 90 tablet, 1 Refills, Maintenance, 12/10/18 10:01:09 EDT, Tablet Start Date: 12/10/18 Stop Date: 06/08/19 Status: Ordered Tessalon Perles 100 mg oral capsule 1 capsule = 100 mg, By Mouth, 3 times a day, PRN Cough, # 21 capsule, 0 Refills, Maintenance, 05/17/19 11:50:00 EST, Capsule, [facility] #[id number], 152.4, cm, 05/17/19 11:32:00 EST, Height Start Date: 05/17/19 Stop Date: 05/24/19 Status: Ordered Problem List Condition Effective Dates Status Health Status Inform ant Anxiety(Confirmed) Active Depression(Confirmed) Active Diverticulosis of colon(Confirmed) [...] Social History Type Response Smoking Status Never smoker; Tobacc o user in household: No entered on: 06/12/15 Sex
--- OUTSIDE RECORDS SUMMARY | 2023-12-10 21:09 | XMS_ITS | Continuity of Care Document ---
Author Organization [facility] Address [address] [place] [address]- Care Team Providers Care Jailer/Training Officer Name Role Phone Darrick APONTE, Orlin Primary Care Physician [place] [facility] [place](s): 10/09/20 - 10/16/20 [facility] [address] [place], [place] [address] Encounter Diagnosis Alcohol abuse(Discharge Diagnosis) - 10/09/20 Attending Physician: Orlin Hollingsworth MD Allergies, Adverse Reactions, Alerts No Known Medication Allergies Immunizations Given and Recorded Vaccine Date Status Refusal Reason SARS-CoV-2 (COVID-19) mRNA BNT-162b2 vac 05/14/20 Recorded SARS-CoV-2 (COVID-19) mRNA BNT-162b2 vac 04/23/20 Recorded SARS-CoV-2 (COVID-19) mRNA BNT-162b2 vac 03/24/20 Recorded SARS-CoV-2 (COVID-19) mRNA BNT-162b2 vac 04/21/18 Recorded influenza virus vaccine, inactivated 1 11/06/19 Re corded influenza virus vaccine, inactivated 11/06/19 César rded influenza virus vaccine, inactivated 2 11/09/18 Re corded influenza virus vaccine, inactivated 12/29/17 César rded influenza virus vaccine, inactivated 3 11/13/17 Gi stanford influenza virus vaccine, inactivated 4 11/08/16 Gi stanford zoster vaccine, inactivated 12/29/17 Recorded Zoster Vaccine Live 5 10/17/17 Given Zoster Vaccine Live 6 06/15/15 Given pneumococcal 23-valent vaccine 7 10/31/16 Given pneumococcal 13-valent vaccine 8 06/15/15 Given tetanus-diphtheria toxoids (Td) 9 08/20/14 Given 1[facility] Comment[facility] 2Result Comment: [facility] 3Admin Note: [facility] recieved fluzone given 4Admin Note: [facility] received 5Admin Note: [facility] shingrix given 6Admin Note: [facility], in system 7Result Comment: [10/31/2016] given w/out incident 8Admin Note: done @ [facility], in system 9Admin Note: done @ [facility] form received Medications atenolol 100 mg oral tablet 1 tablet = 100 mg, By Mouth, Daily, # 90 tablet, 1 Refills, Maintenance, 08/04/20 10:17:00 EDT, Tablet, [facility] #[id number], 152.4, cm, 05/17/19 11:32:00 EST, Height Start Date: 08/04/20 Stop Date: 01/31/21 Status: Ordered atorvastatin 40 mg oral tablet 1 tablet, By Mouth, Daily, Duplicate from 08/03/20, # 90 tablet, 2 Refills, Maintenance, 08/05/20 10:05:00 EDT, [facility] #[id number], 152.4, cm, 05/17/19 11:32:00 EST, Height Start Date: 08/05/20 Status: Ordered Centrum Silver 1 tablet, By Mouth, Daily, 0 Refills, Maintenance, 06/12/15 17:52:27 Start Date: 06/12/15 Stop Date: 07/12/15 Status: Ordered levothyroxine 0.05 mg oral tablet 1 tablet, By Mouth, Daily, # 90 tablet, 1 Refills, Maintenance, 07/17/20 17:41:00 EDT, [facility] #[id number], 152.4, cm, 05/17/19 11:32:00 EST, Height Start Date: 07/17/20 Status: Ordered lisinopril 10 mg oral tablet 10 mg, 1, tablet, By Mouth, Daily in AM, # 30 tablet, Refills 5, Tot. Refills 5, Maintenance, 10/09/20 10:05:00 EDT, Route to Pharmacy Electronically, [facility] #[id number], Partial fill upon patient request if the prescription is for a schedule... Start Date: 10/09/20 Stop Date: 04/07/21 Status: Ordered sertraline 100 mg oral tablet 1 tablet = 100 mg, By Mouth, Daily, # 90 tablet, 2 Refills, Maintenance, 10/09/20 9:59:00 EDT, Tablet, [facility] #[id number], increase in dose, 152.4, cm, 10/09/20 9:56:00 EDT, Height Start Date: 10/09/20 Stop Date: 07/06/21 Status: Ordered Problem List Condition Effective Dates [...] syndrome(Confirmed) Active 1CT chest at [facility] Diagnosis Diagnosis Type Effective Dates Health Status Cl inical Service Informant Alcohol abuse Discharge Diagnosis 10/09/20 Vital Signs Most recent to oldest [Reference Range]: 1 Height 152.4 cm (10/09/20 9:56 AM) Weight 60.9 kg (10/09/20 9:56 AM) Oxygen Saturation [94-100 %] 98 % (10/09/20 9:56 AM) Pulse Rate [55-90 bpm] 67 bpm (10/09/20 9:56 AM) Body Mass Index [18.5-24.99] 26.22 *H* (10/09/20 9:56 AM) Blood Pressure [90-138/55-84 mm Hg] 140/ 86mm Hg *H* (10/09/20 9:56 AM) Temperature [96.8-100.4 DegF] 98.0 DegF (10/09/20 9:56 AM) Mode of Delivery (Oxygen) Room air (10/09/20 9:56 AM) Blood pressure sites Arm, left (10/09/20 9:56 AM) Temperature Route Temporal (7/23/21 9:56 AM) Social History Social History Type Response Smoking Status Never (less than 100 in lifetime) entered on: 06/27/19 Sex
--- OUTSIDE RECORDS SUMMARY | 2023-12-10 21:09 | XMS_ITS | Continuity of Care Document ---
Author Organization [facility] Address [address] [place] [address]- Care Team Providers Care President Of [place] Name Role Phone Darrick APONTE, Orlin Primary Care Physician [facility] Date[facility]s): 09/07/20 - 10/07/20 [facility] [address] [place], [place] [address] Allergies, Adverse Reactions, Alerts No Known Medication [...] 1 Refills, Maintenance, 08/04/20 10:17:00 EDT, Tablet, [facility] #[id number], 152.4, cm, 05/17/19 11:32:00 EST, Height Start Date: 08/04/20 Stop Date: 01/31/21 Status: Ordered atorvastatin 40 mg oral tablet 1 tablet, By Mouth, Daily, Duplicate from 08/03/20, # 90 tablet, 2 Refills, Maintenance, 08/05/20 10:05:00 EDT, [facility] #[id number], 152.4, cm, 05/17/19 11:32:00 EST, Height Start Date: 08/05/20 Status: Ordered Centrum Silver 1 tablet, By Mouth, Daily, 0 Refills, Maintenance, 06/12/15 17:52:27 Start Date: 06/12/15 Stop Date: 07/12/15 Status: Ordered levothyroxine 0.05 mg oral tablet 1 tablet, By Mouth, Daily, # 90 tablet, 1 Refills, Maintenance, 07/17/20 17:41:00 EDT, [facility] #[id number], 152.4, cm, 05/17/19 11:32:00 EST, Height Start Date: 07/17/20 Status: Ordered sertraline 50 mg oral tablet 1 tablet = 50 mg, By Mouth, Daily, # 30 tablet, 5 Refills, Maintenance, 09/04/20 11:29:00 EDT, Tablet, [facility] #[id number], increase in dose, 152.4, cm, 05/17/19 11:32:00 EST, Height Start Date: 09/04/20 Stop Date: 03/03/21 Status: Ordered traZODone 50 mg oral tablet 50 mg, 1, tablet, By Mouth, Daily at bedtime, # 30 tablet, Refills 3, Tot. Refills 3, Maintenance, 09/04/20 11:34:00 EDT, Route to Pharmacy Electronically, [facility] #[id number], Partial fill upon patient request if the prescription is for a hernandez... Start Date: 09/04/20 Stop Date: 01/02/21 Status: Ordered Problem List Condition Effective Dates [...]
--- OUTSIDE RECORDS SUMMARY | 2023-12-10 21:09 | XMS_ITS | Continuity of Care Document ---
Author Organization [facility] Address [address] [place] [address]- Care Team Providers Care Water Engineer Name Role Phone Orlin Hollingsworth MD Primary Care Physician [facility] Date(s): 02/09/21 - 03/11/21 [facility] [address] [place], [place] [address] Attending Physician: Eleazar Jackson Admitting Physician: Admtr, Ar8 Referring Physician: Admtr, Ar8 Allergies, Adverse Reactions, Alerts No Known Medication [...] Gi stanford influenza virus vaccine, inactivated 11/25/15 Écsar rded influenza virus vaccine, inactivated 11/28/14 César [...] 1 Refills, Maintenance, 08/04/20 10:17:00 EDT, Tablet, [facility] #[id number], 152.4, cm, 05/17/19 11:32:00 EST, Height Start Date: 08/04/20 Stop Date: 01/31/21 Status: Ordered atorvastatin 40 mg oral tablet 1 tablet, By Mouth, Daily, Duplicate from 08/03/20, # 90 tablet, 2 Refills, Maintenance, 08/05/20 10:05:00 EDT, [facility] #[id number], 152.4, cm, 05/17/19 11:32:00 EST, Height Start Date: 08/05/20 Status: Ordered Centrum Silver 1 tablet, By Mouth, Daily, 0 Refills, Maintenance, 06/12/15 17:52:27 Start Date: 06/12/15 Stop Date: 07/12/15 Status: Ordered levothyroxine 0.05 mg oral tablet 1 tablet, By Mouth, Daily, # 90 tablet, 1 Refills, Maintenance, 10/19/20 10:07:00 EDT, [facility] #[id number], 152.4, cm, 10/09/20 9:56:00 EDT, Height Start Date: 10/19/20 Status: Ordered lisinopril 10 mg oral tablet 10 mg, 1, tablet, By Mouth, Daily in AM, # 90 tablet, Refills 3, Tot. Refills 3, Maintenance, 12/25/20 11:05:00 EDT, Route to Pharmacy Electronically, [facility] #[id number], Partial fill upon patient request if the prescription is for a schedule... Start Date: 12/25/20 Stop Date: 12/20/21 Status: Ordered sertraline 100 mg oral tablet 1.5 tablet = 150 mg, By Mouth, Daily, # 135 tablet, 3 Refills, Maintenance, 12/25/20 11:02:00 EDT, Tablet, [facility] #[id number], increase in dose, 152.4, cm, 12/25/20 10:52:00 EDT, Height Start Date: 12/25/20 Stop Date: 12/20/21 Status: Ordered Problem List Condition Effective Dates [...]
--- OUTSIDE RECORDS SUMMARY | 2023-12-10 21:09 | XMS_ITS | Continuity of Care Document ---
Author Organization [facility] Address [address] [place] [address]- Care Team Providers Care Auto Claims Adjuster Name Role Phone Orlin Hollingsworth MD Primary Care Physician [facility] Date(s): 01/19/21 - 02/18/21 [facility] [address] [place] [address]- Allergies, Adverse Reactions, Alerts No Known Medication [...] 1 Refills, Maintenance, 08/04/20 10:17:00 EDT, Tablet, [facility] #[id number], 152.4, cm, 05/17/19 11:32:00 EST, Height Start Date: 08/04/20 Stop Date: 01/31/21 Status: Ordered atorvastatin 40 mg oral tablet 1 tablet, By Mouth, Daily, Duplicate from 08/03/20, # 90 tablet, 2 Refills, Maintenance, 08/05/20 10:05:00 EDT, [facility] #[id number], 152.4, cm, 05/17/19 11:32:00 EST, Height Start Date: 08/05/20 Status: Ordered Centrum Silver 1 tablet, By Mouth, Daily, 0 Refills, Maintenance, 06/12/15 17:52:27 Start Date: 06/12/15 Stop Date: 07/12/15 Status: Ordered levothyroxine 0.05 mg oral tablet 1 tablet, By Mouth, Daily, # 90 tablet, 1 Refills, Maintenance, 10/19/20 10:07:00 EDT, [facility] #[id number], 152.4, cm, 10/09/20 9:56:00 EDT, Height Start Date: 10/19/20 Status: Ordered lisinopril 10 mg oral tablet 10 mg, 1, tablet, By Mouth, Daily in AM, # 90 tablet, Refills 3, Tot. Refills 3, Maintenance, 12/25/20 11:05:00 EDT, Route to Pharmacy Electronically, [email or web address] #[id number], Partial fill upon patient request if the prescription is for a schedule... Start Date: 12/25/20 Stop Date: 12/20/21 Status: Ordered sertraline 100 mg oral tablet 1.5 tablet = 150 mg, By Mouth, Daily, # 135 tablet, 3 Refills, Maintenance, 12/25/20 11:02:00 EDT, Tablet, [facility] #[id number], increase in dose, 152.4, cm, 12/25/20 10:52:00 [...]
--- OUTSIDE RECORDS SUMMARY | 2023-12-10 21:09 | XMS_ITS | Continuity of Care Document ---
Author Organization [facility] Address [address], [address] [place] [address]- Care Team Providers Care Rescue Worker Name Role Phone Darrick APONTE, Orlin Primary Care Physician Encounter 12/09/20 - 12/16/20 [facility] [address], [address] [place] [address]- Attending Physician: Orlin Ramos MD Admitting Physician: Orlin Ramos MD Referring Physician: Orlin Ramos MD Allergies, Adverse Reactions, Alerts No Known [...] 1 Refills, Maintenance, 08/04/20 10:17:00 EDT, Tablet, [facility] #[id number], 152.4, cm, 05/17/19 11:32:00 EST, Height Start Date: 08/04/20 Stop Date: 01/31/21 Status: Ordered atorvastatin 40 mg oral tablet 1 tablet, By Mouth, Daily, Duplicate from 08/03/20, # 90 tablet, 2 Refills, Maintenance, 08/05/20 10:05:00 EDT, [facility] #[id number], 152.4, cm, 05/17/19 11:32:00 EST, Height Start Date: 08/05/20 Status: Ordered Centrum Silver 1 tablet, By Mouth, Daily, 0 Refills, Maintenance, 06/12/15 17:52:27 Start Date: 06/12/15 Stop Date: 07/12/15 Status: Ordered levothyroxine 0.05 mg oral tablet 1 tablet, By Mouth, Daily, # 90 tablet, 1 Refills, Maintenance, 10/19/20 10:07:00 EDT, [facility] #[id number], 152.4, cm, 10/09/20 9:56:00 EDT, Height Start Date: 10/19/20 Status: Ordered lisinopril 10 mg oral tablet 10 mg, 1, tablet, By Mouth, Daily in AM, # 30 tablet, Refills 5, Tot. Refills 5, Maintenance, 10/09/20 10:05:00 EDT, Route to Pharmacy Electronically, [facility] #[id number], Partial fill upon patient request if the prescription is for a schedule... Start Date: 10/09/20 Stop Date: 04/07/21 Status: Ordered sertraline 100 mg oral tablet 0.5 tablet = 50 mg, By Mouth, Daily, # 45 tablet, 2 Refills, Maintenance, 10/09/20 9:59:00 EDT, Tablet, [facility] #[id number], increase in dose, 152.4, cm, 10/09/20 9:56:00 [...] syndrome(Confirmed) Active 1CT chest at [facility] Results Radiology Reports * Exam Date Time Procedure Performing Provider Status 12/09/20 2:42 PM Dexa Bone Density (Axial) Molly Arguello sa; Pierce (Verified) Notes: (Dexa Bone Density (Axial)) Reason For Exam: Osteoporosis RESULT: DEXA BONE DENSITY (AXIAL) Bone Density Report Name: ZAYDA BARGER Age: 85 Sex: Female Ethnicity: White Date of : 1935 Indication: SCREENING FOR OSTEOPOROSIS. POSTMENOPAUSAL. Referring Provider: ORLIN RAMOS Study: Bone densitometry was performed. Exam Date: December 09, 2020 Accession number: [id number] Bone Density: Region BMD T-score Z-score Classification AP Spine (L1-L4) 1.386 3.1 5.9 Normal Femoral Neck (Right) 0.800 -0.4 2.0 Normal Total Hip (Right) 0.933 -0.1 2.2 Normal World Health Organization criteria for BMD impression classify patients as: Normal (T-score at or above -1.0), Osteopenia (T-score between -1.0 and -2.5), or Osteoporosis (T-score at or below -2.5). 10-year Fracture Risk: FRAX not reported because: All T-scores at or above -1.0 Clinical Information Provided by Patient: Patient maximum height was 61.0 Menopause Age: 57 Onset of menses at age 15 Number of children 3 Impression: The patient has normal bone density as determined by WHO criteria. A repeat bone density assessment should be considered in two years. Reported by: Samira Plunkett M.D. on 12/11/2020 12:02:00 PM. Dictated By: Samira Plunkett MD Dictated Date/Time: 12/11/20 12:03 p Reviewed By: Samira Plunkett MD Signed By: Samira Plunkett MD Signed Date/Time: 12/11/20 12:03 pm Transcribed By: ANGE Transcribed Date/Time: 12/11/20 12:03 pm Social History Social History Type Response Smoking Status Never (less than 100 in lifetime) entered on: 06/27/19 Sex
--- OUTSIDE RECORDS SUMMARY | 2023-12-10 21:09 | XMS_ITS | Continuity of Care Document ---
Author Organization [facility] Address [address] [place] [address]- Care Team Providers Care Professor Of Genetics Name Role Phone Orlin Hollingsworth MD Primary Care Physician [place] [facility] [place] 02[place]16[place]21 [facility] [address] [place] [address]- Encounter Diagnosis Preop examination(Discharge Diagnosis) - 02/09/21 Cataract(Discharge Diagnosis) - 02/09/21 Attending Physician: Orlin Hollingsworth MD Referring Physician: Lan Colvin MD Allergies, Adverse Reactions, Alerts No Known [...] 1 Refills, Maintenance, 08/04/20 10:17:00 EDT, Tablet, [facility] #[id number], 152.4, cm, 05/17/19 11:32:00 EST, Height Start Date: 08/04/20 Stop Date: 01/31/21 Status: Ordered atorvastatin 40 mg oral tablet 1 tablet, By Mouth, Daily, Duplicate from 08/03/20, # 90 tablet, 2 Refills, Maintenance, 08/05/20 10:05:00 EDT, [facility] #[id number], 152.4, cm, 05/17/19 11:32:00 EST, Height Start Date: 08/05/20 Status: Ordered Centrum Silver 1 tablet, By Mouth, Daily, 0 Refills, Maintenance, 06/12/15 17:52:27 Start Date: 06/12/15 Stop Date: 07/12/15 Status: Ordered levothyroxine 0.05 mg oral tablet 1 tablet, By Mouth, Daily, # 90 tablet, 1 Refills, Maintenance, 10/19/20 10:07:00 EDT, [facility] #[id number], 152.4, cm, 10/09/20 9:56:00 EDT, Height Start Date: 10/19/20 Status: Ordered lisinopril 10 mg oral tablet 10 mg, 1, tablet, By Mouth, Daily in AM, # 90 tablet, Refills 3, Tot. Refills 3, Maintenance, 12/25/20 11:05:00 EDT, Route to Pharmacy Electronically, [email or web address] #[id number], Partial fill upon patient request if the prescription is for a schedule... Start Date: 12/25/20 Stop Date: 12/20/21 Status: Ordered sertraline 100 mg oral tablet 1.5 tablet = 150 mg, By Mouth, Daily, # 135 tablet, 3 Refills, Maintenance, 12/25/20 11:02:00 EDT, Tablet, [facility] #[id number], increase in dose, 152.4, cm, 12/25/20 10:52:00 [...] Diagnosis Diagnosis Type Effective Dates Health Status Clinical Service Informant Preop examination Discharge Diagnosis 02/09/21 Cataract Discharge Diagnosis 02/09/21 Vital Signs Most recent to oldest [Reference Range]: 1 2 Height 152.4 cm (02/09/21 3:32 PM) Weight 58.3 kg (02/09/21 3:32 PM) Oxygen Saturation [94-100 %] 98 % (02/09/21 3:32 PM) Pulse Rate [55-90 bpm] 69 bpm (02/09/21 3:32 PM) Body Mass Index [18.5-24.99] 25.1 *H* (02/09/21 3:32 PM) Blood Pressure [90-138/55-84 mm Hg] 126/ 78mm Hg (02/09/21 3:34 PM) 158/84mm Hg *H* (02/09/21 3:32 PM) Temperature [96.8-100.4 DegF] 98.6 DegF (02/09/21 3:32 PM) Mode of Delivery (Oxygen) Room air (02/09/21 3:32 PM) Blood pressure sites Arm, left (02/09/21 3:32 PM) Temperature Route Temporal (02/09/21 3:32 PM) Social History Social History Type Response Smoking Status Never (less than 100 in lifetime) entered on: 06/27/19 Sex
--- OUTSIDE RECORDS SUMMARY | 2023-12-10 21:09 | XMS_ITS | Continuity of Care Document ---
Author Organization [facility] Address [address] [place] [address]- Care Team Providers Care Supervisor [employer] Name Role Phone Orlin Hollingsworth MD Primary Care Physician [place] [facility] [place] 06/23/20 [facility] [address] [place], [place] [address] Attending Physician: Orlin Hollingsworth MD Allergies, Adverse Reactions, Alerts No Known Medication Allergies Immunizations Given and Recorded Vaccine Date Status Refusal Reason SARS-CoV-2 (COVID-19) mRNA BNT-162b2 vac 03/24/20 Recorded SARS-CoV-2 (COVID-19) mRNA BNT-162b2 vac 04/21/18 Recorded influenza virus vaccine, inactivated 1 11/06/19 Re corded influenza virus vaccine, inactivated 11/06/19 César rded influenza virus vaccine, inactivated 2 11/09/18 Re corded influenza virus vaccine, inactivated 12/29/17 César rded influenza virus vaccine, inactivated 3 11/13/17 Gi stanford influenza virus vaccine, inactivated 4 11/08/16 Gi stanford Zoster Vaccine Live 5 10/17/17 Given Zoster [...] Daily, # 90 tablet, 3 Refills, Maintenance, 06/27/19 14:24:00 EDT, Tablet, [facility] #[id number], 152.4, cm, 05/17/19 11:32:00 EST, Height Start Date: 06/27/19 Stop Date: 06/21/20 Status: Ordered atorvastatin 40 mg oral tablet 1 tablet = 40 mg, By Mouth, Daily, # 90 tablet, 3 Refills, Maintenance, 06/27/19 14:23:00 EDT, Tablet, [facility] #[id number], 152.4, cm, 05/17/19 11:32:00 EST, Height Start Date: 06/27/19 Stop Date: 06/21/20 Status: Ordered Centrum Silver 1 tablet, By Mouth, Daily, 0 Refills, Maintenance, 06/12/15 17:52:27 Start Date: 06/12/15 Stop Date: 07/12/15 Status: Ordered levothyroxine 0.05 mg oral tablet 1 tablet = 50 mcg, By Mouth, Daily, # 90 tablet, 3 Refills, Maintenance, 06/27/19 14:24:00 EDT, Tablet, [facility] #[id number], 152.4, cm, 05/17/19 11:32:00 EST, Height Start Date: 06/27/19 Stop Date: 06/21/20 Status: Ordered Problem List Condition Effective Dates [...]
--- OUTSIDE RECORDS SUMMARY | 2023-12-10 21:09 | XMS_ITS | Continuity of Care Document ---
Author Organization [facility] Address [address] [place] [address]- Care Team Providers Care Automatic Furnace Operator Name Role Phone Darrick APONTE, Orlin Primary Care Physician [facility] - 10/04/20 [facility] [address] [place], [place] [address] Allergies, Adverse Reactions, Alerts No Known Medication Allergies Immunizations Given and Recorded Vaccine Date Status Refusal Reason SARS-CoV-2 (COVID-19) mRNA BNT-162b2 vac 03/24/20 Recorded SARS-CoV-2 (COVID-19) mRNA BNT-162a6 vac 04/21/18 Recorded influenza virus vaccine, inactivated [...] 1 Refills, Maintenance, 08/04/20 10:17:00 EDT, Tablet, [facility] #[id number], 152.4, cm, 05/17/19 11:32:00 EST, Height Start Date: 08/04/20 Stop Date: 01/31/21 Status: Ordered atorvastatin 40 mg oral tablet 1 tablet, By Mouth, Daily, Duplicate from 08/03/20, # 90 tablet, 2 Refills, Maintenance, 08/05/20 10:05:00 EDT, [facility] #[id number], 152.4, cm, 05/17/19 11:32:00 EST, Height Start Date: 08/05/20 Status: Ordered Centrum Silver 1 tablet, By Mouth, Daily, 0 Refills, Maintenance, 06/12/15 17:52:27 Start Date: 06/12/15 Stop Date: 07/12/15 Status: Ordered levothyroxine 0.05 mg oral tablet 1 tablet, By Mouth, Daily, # 90 tablet, 1 Refills, Maintenance, 07/17/20 17:41:00 EDT, [facility] #[id number], 152.4, cm, 05/17/19 11:32:00 EST, Height Start Date: 07/17/20 Status: Ordered sertraline 50 mg oral tablet 1 tablet = 50 mg, By Mouth, Daily, # 30 tablet, 5 Refills, Maintenance, 09/04/20 11:29:00 EDT, Tablet, [facility] #[id number], increase in dose, 152.4, cm, 05/17/19 11:32:00 EST, Height Start Date: 09/04/20 Stop Date: 03/03/21 Status: Ordered traZODone 50 mg oral tablet 50 mg, 1, tablet, By Mouth, Daily at bedtime, # 30 tablet, Refills 3, Tot. Refills 3, Maintenance, 09/04/20 11:34:00 EDT, Route to Pharmacy Electronically, [facility] #[id number], Partial fill upon patient request if the [...]
--- OUTSIDE RECORDS SUMMARY | 2023-12-10 21:09 | XMS_ITS | Continuity of Care Document ---
Author Organization [facility] Address [address] [place] [address]- Care Team Providers Care Ironworker Apprentice Name Role Phone Orlin Hollingsworth MD Primary Care Physician [facility] 03/23/23 - 03/30/23 [facility] [address] [place], [place] [address] Attending Physician: Orlin Hollingsworth MD Allergies, Adverse [...] virus vaccine, inactivated 11/28/14 César rded SARS-CoV-2(COVID-19)mRNA-LNP vac([id number]) 12/23/22 Recorded [id number] 12y+ bivalent booster vax 09/15/22 Recorded [id number] 12y+ bivalent booster vax 12/31/21 Recorded SARS-CoV-2 [...] tablet, 3 Refills, Maintenance, 09/06/22 10:55:00 EDT, [facility] #[id number], 152.4, cm, 09/06/22 10:53:00 EDT, Height Start Date: 09/06/22 Stop Date: 09/01/23 Status: Ordered atorvastatin 40 mg oral tablet 1 tablet, By Mouth, Daily, # 90 tablet, 3 Refills, Maintenance, 09/06/22 10:56:00 EDT, [facility] #[id number], 152.4, cm, 09/06/22 10:53:00 EDT, Height Start Date: 09/06/22 Stop Date: 09/01/23 Status: Ordered Centrum Silver 1 tablet, By Mouth, Daily, 0 Refills, Maintenance, 06/12/15 17:52:27 Start Date: 06/12/15 Stop Date: 07/12/15 Status: Ordered levothyroxine 0.05 mg oral tablet 1 tablet, By Mouth, Daily, # 90 tablet, 3 Refills, Maintenance, 09/06/22 10:56:00 EDT, [facility] #[id number], 152.4, cm, 09/06/22 10:53:00 EDT, Height Start Date: 09/06/22 Stop Date: 09/01/23 Status: Ordered lisinopril 30 mg oral tablet 1 tablet = 30 mg, By Mouth, Daily, # 90 tablet, 4 Refills, Maintenance, 09/06/22 10:55:00 EDT, Tablet, [facility] #[id number], increase in dose, 152.4, cm, 09/06/22 10:53:00 EDT, Height Start Date: 09/06/22 Stop Date: 11/30/23 Status: Ordered venlafaxine 75 mg oral capsule, extended release 75 mg, 1, capsule, By Mouth, Daily, # 90 capsule, Refills 3, Tot. Refills 3, Maintenance, 07/11/22 9:39:00 EDT, Route to Pharmacy Electronically, [facility] #[id number], dose lowered back down.,152.4, cm, 07/05/22 10:56:00 EDT, Height Start Date: 07/11/22 Stop Date: 07/06/23 Status: Ordered Problem List Condition Confirmation Course [...] Confirmed Active 1CT chest at [facility] Vital Signs Most recent to oldest [Reference Range]: 1 Height 152.4 cm (03/23/23 2:42 PM) Weight 55.9 kg (03/23/23 2:42 PM) Oxygen Saturation [94-100 %] 95 % (03/23/23 2:42 PM) Pulse Rate [55-90 bpm] 73 bpm (03/23/23 2:42 PM) Body Mass Index [18.5-24.99 kg/m2] 24.07 kg/m2 (03/23/23 2:42 PM) Blood Pressure [90-138/55-84 mm Hg] 142/ 82mm Hg *H* (03/23/23 2:42 PM) Mode of Delivery (Oxygen) Room air (03/23/23 2:42 PM) Blood pressure sites Arm, left (03/23/23 2:42 PM) Social History Social History Type Response Smoking Status Never (less than 100 in lifetime) entered on: 06/27/19 Sex Note * Beckie Villegas: PERFORM, SIGN, VERIFY Event Display: Patient Education/Instruction Authored Date: [id number] [facility] *No Edge Adult Ped Clinical Summary Name ZAYDA BARGER Age 88 Years 1935 PCP Darrick APONTE, Orlin PCP Visit Date 03/23/2023 14:34:00 Patient Instructions 1. ??Please schedule to get the RSV vaccine from your local pharmacy. 2. ??keep well hydrated. 3. ??repeat fasting lab work.?? 4. your BP today here is elevated. Since you have better BP readings consistently at home, please continue to monitor it at least once a week. Show me your diary like you did today, when I see you onyour next scheduled follow up 5. I will keep you on the same medication regimen. 6. I recommend you cut back on your alcohol consumption. 7. continue attending breathing and stretch class. ??Also continue with your walks. Additional Instructions: Scheduled Appointments?? Future Appointments ?No Future Appointments Scheduled Follow-Up Instructions ?? Diagnosis Medications: Please continue your medications until treatment is completed or stopped by your provider. Discuss any questions related to medications with your provider. Medications to Continue with No Changes These medications were not printed or sent to your pharmacy Atenolol (atenolol 100 mg oral tablet) 1 tab(s) Oral Daily for 90 Days. Refills: 3. Next Dose: Atorvastatin (atorvastatin 40 mg oral tablet) 1 tab(s) Oral Daily for 90 Days. Refills: 3. Next Dose: Levothyroxine (levothyroxine 0.05 mg oral tablet) 1 tab(s) Oral Daily for 90 Days. Refills: 3. Next Dose: Lisinopril (lisinopril 30 mg oral tablet) 1 tab(s) Oral Daily for 90 Days. Refills: 4. Next Dose: Multivitamin With Minerals (Centrum Silver) 1 tab(s) Oral Daily for 30 Days. Next Dose: Venlafaxine (venlafaxine 75 mg oral capsule, extended release) 1 capsule Oral Daily for 90 Days. Refills: 3. Next Dose: Allergy Info:?? No Known Medication Allergies Medications Given This Visit Future Orders ?Thyroid Panel? Order Date:03/23/23?- Complete on or after?03/23/23 ?Hemoglobin A1C (Monitoring)? Order Date:03/23/23?- Complete on or after?03/23/23 ?ALT? Order Date:03/23/23?- Complete on or after?03/23/23 ?AST? Order Date:03/23/23?- Complete on or after?03/23/23 ?Lipid Panel? Order Date:03/23/23?- Complete on or after?03/23/23 ?CBC? Order Date:03/23/23?- Complete on or after?03/23/23 ?Basic Metabolic Panel? Order Date:03/23/23?- Complete on or after?03/23/23 Vital Signs Height 152.4 cm Weight 55.9 kg BMI 24.07 kg/m2 Blood Pressure 142 mm Hg/82 mm Hg Temperature Pulse Rate 73 bpm Respiratory Rate 02 Sat Mode of Delivery 95 %/Room air You can now view a summary of your hospital visit from the comfort of your home through a free online portal called [employer]. [employer] is a website that allows you to securely view your medical information including discharge summary, medications and follow-up visits. ??You can alsosend a secure electronic message to your doctor???s office to request appointments, renew medications or just ask a question. You can enroll at [email or web address] or register during your next office visit. Disclaimer:?? The information provided is of a general nature and is intended to be used in conjunction with the recommendations and advice of your health care practitioner. ??Every effort has been made to ensure that the information provided is accurate and complete at the time it is provided to you however, as your needs change, or, as new ??information becomes available, different or additional instructions may be required. If you have questions, please consult with your primary care provider or pharmacist, as appropriate. ??This information is not intended to serve as substitution for assessment and evaluation by a qualified health care provider. If you do not have a primary care provider, you may find a [facility] provider by calling [facility] Link at [phone]. [facility], in keeping with [facility] guidance, no longer requires face masks for staff, patientsor visitors in most situations. Similar to time spent indoors at other locations, there is the chance that you were exposed to respiratory viruses during your time with us (such as flu or COVID-19).? If you develop symptoms concerning for a viral respiratory infection, please seek testing (and treatment if indicated) from your medical provider or home test kit. For information about the plan of care including goals and instructions for your diagnosis, please see the patient education orders section of this document. Patient Education Materials?? The content of this educational material or handout may have been modified, supplemented, or adapted from its original content and format to support your individualized medical care. Additional Provider Instructions: 1. Please schedule to get the RSV vaccine from your local pharmacy. 2. keep well hydrated. 3. repeat fasting lab work. Patient Care team information Care Team Personnel Name: Orlin Hollingsworth MD Position: [facility] Physician - Primary Care Member Role: PCP Address: Address: [address] [place] [address] Adult [place] [address]- Care Team Related Persons Name: DERRELL FLORES Name: LACY BARGER Address: [address] [place] [address]
--- OUTSIDE RECORDS SUMMARY | 2023-12-10 21:09 | XMS_ITS | Continuity of Care Document ---
Author Organization [facility] Address [address] [place] [address]- Care Team Providers Care Unit Support Representative Name Role Phone Orlin Hollingsworth MD Primary Care Physician [facility] 10[facility] - 11/23/19 [facility] [address] [place] [address]- [facility] Attending Physician: Eleazar Jackson Admitting Physician: AdmEleazar stauffer Referring Physician: AdmtrEleazar Allergies, Adverse Reactions, Alerts No Known Medication Allergies Immunizations Given and Recorded Vaccine Date Status Refusal Reason influenza virus vaccine, inactivated 1 11/06/19 Re [...] 3 Refills, Maintenance, 06/27/19 14:24:00 EDT, Tablet, [facility] #[id number], 152.4, cm, 05/17/19 11:32:00 EST, Height Start Date: 06/27/19 Stop Date: 06/21/20 Status: Ordered atorvastatin 40 mg oral tablet 1 tablet = 40 mg, By Mouth, Daily, # 90 tablet, 3 Refills, Maintenance, 06/27/19 14:23:00 EDT, Tablet, [facility] #[id number], 152.4, cm, 05/17/19 11:32:00 EST, Height Start Date: 06/27/19 Stop Date: 06/21/20 Status: Ordered Centrum Silver 1 tablet, By Mouth, Daily, 0 Refills, Maintenance, 06/12/15 17:52:27 Start Date: 06/12/15 Stop Date: 07/12/15 Status: Ordered levothyroxine 0.05 mg oral tablet 1 tablet = 50 mcg, By Mouth, Daily, # 90 tablet, 3 Refills, Maintenance, 06/27/19 14:24:00 EDT, Tablet, [facility] #[id number], 152.4, cm, 05/17/19 11:32:00 EST, Height Start Date: 06/27/19 Stop Date: 06/21/20 Status: Ordered olanzapine 2.5 mg oral tablet 1.25 mg, 0.5, tablet, By Mouth, Daily at bedtime, # 15 tablet, Refills 0, Tot. Refills 0, Maintenance, 10/24/19 13:13:00 EDT, Route to Pharmacy Electronically, [facility] #[id number], 152.4, cm,05/17/19 11:32:00 EST, Height Start Date: 10/24/19 Stop Date: 11/23/19 Status: Ordered Problem List Condition Effective Dates [...]
--- OUTSIDE RECORDS SUMMARY | 2023-12-10 21:09 | XMS_ITS | Continuity of Care Document ---
Author Organization [facility] Address [address] [place] [address]- Care Team Providers Care Childhood Teacher Name Role Phone Orlin Hollingsworth MD Primary Care Physician [facility](s): 07/02/19 - 08/01/19 [facility] [address] [place] [address]- [facility] Attending Physician: Orlin Hollingsworth MD Allergies, Adverse [...] 3 Refills, Maintenance, 06/27/19 14:24:00 EDT, Tablet, [facility] #[id number], 152.4, cm, 05/17/19 11:32:00 EST, Height Start Date: 06/27/19 Stop Date: 06/21/20 Status: Ordered atorvastatin 40 mg oral tablet 1 tablet = 40 mg, By Mouth, Daily, # 90 tablet, 3 Refills, Maintenance, 06/27/19 14:23:00 EDT, Tablet, [facility] #[id number], 152.4, cm, 05/17/19 11:32:00 EST, Height Start Date: 06/27/19 Stop Date: 06/21/20 Status: Ordered Centrum Silver 1 tablet, By Mouth, Daily, 0 Refills, Maintenance, 06/12/15 17:52:27 Start Date: 06/12/15 Stop Date: 07/12/15 Status: Ordered levothyroxine 0.05 mg oral tablet 1 tablet = 50 mcg, By Mouth, Daily, # 90 tablet, 3 Refills, Maintenance, 06/27/19 14:24:00 EDT, Tablet, [facility] #[id number], 152.4, cm, 05/17/19 11:32:00 EST, Height Start [...]
--- OUTSIDE RECORDS SUMMARY | 2023-12-10 21:10 | XMS_ITS | Continuity of Care Document ---
Author Organization [facility] Address [address] [place] [address]- Care Team Providers Care Grain Merchandiser Name Role Phone Darrick APONTE, Orlin Primary Care Physician [facility]): 02[facility]23/22 - 03/02/22 [facility] [address] [place], [place] [address] Attending Physician: Orlin Hollingsworth MD Allergies, Adverse Reactions, Alerts No Known Medication Allergies Immunizations Given and Recorded Vaccine Date Status Refusal Reason influenza virus vaccine, inactivated 12/31/21 César rded [...] influenza virus vaccine, inactivated 11/28/14 César rded [id number] 12y+ bivalent booster vax 12/31/21 Recorded SARS-CoV-2 [...] tablet, By Mouth, Daily, # 90 tablet, 2 Refills, Maintenance, 12/15/21 20:42:00 EDT, [facility] #[id number], 152.4, cm, 11/24/21 14:39:00 EDT, Height Start Date: 12/15/21 Status: Ordered atorvastatin 40 mg oral tablet 1 tablet, By Mouth, Daily, # 90 tablet, 1 Refills, Maintenance, 12/05/21 14:24:00 EDT, [facility] #[id number], 152.4, cm, 11/24/21 14:39:00 EDT, Height Start Date: 12/05/21 Status: Ordered Centrum Silver 1 tablet, By Mouth, Daily, 0 Refills, Maintenance, 06/12/15 17:52:27 Start Date: 06/12/15 Stop Date: 07/12/15 Status: Ordered levothyroxine 0.05 mg oral tablet 1 tablet, By Mouth, Daily, # 90 tablet, 1 Refills, [facility] #[id number], 152.4, cm, 08/24/2213:15:00 EDT, Height Start Date: 10/17/21 Status: Ordered lisinopril 30 mg oral tablet 1 tablet = 30 mg, By Mouth, Daily, # 90 tablet, 2 Refills, Maintenance, 02/23/22 15:23:00 EST, Tablet, [facility] #[id number], increase in dose, 152.4, cm, 02/23/22 15:19:00 EST, Height Start Date: 02/23/22 Stop Date: 11/20/22 Status: Ordered traZODone 50 mg oral tablet 50 mg, 1, tablet, By Mouth, Daily at bedtime, # 30 tablet, Refills 0, Tot. Refills 0, Maintenance, 11/24/21 14:47:00 EDT, Route to Pharmacy Electronically, [facility] #[id number], Partial fill upon patient request if the prescription is for a hernandez... Start Date: 11/24/21 Stop Date: 12/24/21 Status: Ordered venlafaxine 75 mg oral capsule, extended release 1 capsule = 75 mg, By Mouth, Daily, # 30 capsule, 1 Refills, Maintenance, 01/21/22 11:34:00 EDT, ERCapsule, [facility] #[id number], reploaces 37;.5mg ER, 152.4, cm, 11/24/21 14:39:00 EDT, Height Start Date: 01/21/22 Stop Date: 03/22/22 Status: Ordered Problem List Condition Confirmation Course Effective Dates Status Health Status Informant Alcohol abuse Confirmed Active Anxiety Confirmed Active Depression Confirmed Active Diverticulosis of colon Confirmed Active Family history of esophageal cancer (dad) Confirmed Active Family history of breast cancer (sister) Confirmed Active Family history of anxiety disorder (mom) Confirmed Active Family history of stroke (mom) Confirmed Active Family history of hypertension (mom) Confirmed Active S/P tonsillectomy Confirmed Active Hypercholesterolemia Confirmed Active Hypertension Confirmed Active Hypothyroidism Confirmed Active Insomnia Confirmed Active Pulmonary nodules 1 Confirmed 06/03/17 Active Restless leg syndrome Confirmed Active 1CT chest at [facility] Vital Signs Most recent to oldest [Reference Range]: 1 2 Height 152.4 cm (02/23/22 3:19 PM) 152.4 cm (02/23/22 3:08 PM) Weight 57.3 kg (02/23/22 3:08 PM) Oxygen Saturation [94-100 %] 98 % (02/23/22 3:08 PM) Pulse Rate [55-90 bpm] 68 bpm (02/23/22 3:19 PM) 78 bpm (02/23/22 3:08 PM) Body Mass Index [18.5-24.99 kg/m2] 24.67 kg/m2 (02/23/22 3:08 PM) Blood Pressure [90-138/55-84 mm Hg] 145/ 80mm Hg *H* (02/23/22 3:19 PM) 142/84mm Hg *H* (02/23/22 3:08 PM) Mode of Delivery (Oxygen) Room air (02/23/22 3:08 PM) Blood pressure sites Arm, left (02/23/22 3:19 PM) Arm, left (02/23/22 3:08 PM) Social History Social History Type Response Smoking Status Never (less than 100 in lifetime) entered on: 06/27/19 Sex Note * Beckie Villegas: PERFORM, SIGN, VERIFY Event Display: Patient Education/Instruction Authored Date: [id number] [facility] *No Edge Adult Ped Clinical Summary Name ZAYDA BARGER Age 87 Years 1935 PCP Darrick APONTE, Orlin PCP Visit Date 02/23/2022 15:00:00 Patient Instructions 1. increase lisinopril to 30mg daily. ??You may use your current 20mg tablet and take 1.5 tablets of this daily. ??When you eventually run out, get the 30mg tablets from your pharmacy.?? 2. repeat fasting lab work 3. keep well hydrated. 4. continue with your water aerobics 3 days a week and walking the rest of the week. 5. finally I am glad you have given up drinking alcohol daily 6. if you happen to get your own BP machine, I will ask you to check it regularly to see if your BPis below 120/80 on a more regular basis. Additional Instructions: Scheduled Appointments?? Future Appointments ?No Future Appointments Scheduled Follow-Up Instructions ?? Diagnosis Medications: Please continue your medications until treatment is completed or stopped by your provider. Discuss any questions related to medications with your provider. Medications to Continue Taking That Have Changed [facility] #[id number], [address], [place] [id number], [phone] - Lisinopril (lisinopril 30 mg oral tablet) 1 tab(s) Oral Daily for 90 Days. Refills: 2. Next Dose: Medications to Continue with No Changes These medications were not printed or sent to your pharmacy Atenolol (atenolol 100 mg oral tablet) 1 tab(s) Oral Daily. Refills: 2. Next Dose: Atorvastatin (atorvastatin 40 mg oral tablet) 1 tab(s) Oral Daily. Refills: 1. Next Dose: Levothyroxine (levothyroxine 0.05 mg oral tablet) 1 tab(s) Oral Daily. Refills: 1. Next Dose: Multivitamin With Minerals (Centrum Silver) 1 tab(s) Oral Daily for 30 Days. Next Dose: Trazodone (traZODone 50 mg oral tablet) 1 tab(s) Oral Daily at Bedtime for 30 Days. Refills: 0. Next Dose: Venlafaxine (venlafaxine 75 mg oral capsule, extended release) 1 capsule Oral Daily for 30 Days. Refills: 1. Next Dose: Allergy Info:?? No Known Medication Allergies Medications Given This Visit Future Orders ?AST? Order Date:02/23/22?- Complete on or after?02/23/22 ?Lipid Panel? Order Date:02/23/22?- Complete on or after?02/23/22 ?Basic Metabolic Panel? Order Date:02/23/22?- Complete on or after?02/23/22 ?Thyroid Panel? Order Date:02/23/22?- Complete on or after?02/23/22 ?ALT? Order Date:02/23/22?- Complete on or after?02/23/22 Vital Signs Height 152.4 cm Weight 57.3 kg BMI 24.67 kg/m2 Blood Pressure 145 mm Hg/80 mm Hg Temperature Pulse Rate 68 bpm Respiratory Rate 02 Sat Mode of Delivery 98 %/Room air You can now view a summary of your hospital visit from the comfort of your home through a free online portal called [employer]. [employer] is a website that allows you to securely view your medical information including discharge summary, medications and follow-up visits. ??You can alsosend a secure electronic message to your doctor???s office to request appointments, renew medications or just ask a question. You can enroll at [email or web address] or register during your next office visit. [...] primary care provider, you may find a [facility] provider by calling [facility] [employer] Link at [phone]. For information about the plan of care including goals and instructions for your diagnosis, please see the patient education orders section of this document. Patient Education Materials?? The content of this educational material or handout may have been modified, supplemented, or adapted from its original content and format to support your individualized medical care. Additional Provider Instructions: 1. increase lisinopril to 30mg daily. You may use your current 20mg tablet and take 1.5 tablets of this daily. When you eventually run out, get the 30mg tablets from your pharmacy. 2. repeat fasting lab work 3. keep well hydrated. 4. continue with your water aerobics 3 days a week and walking the rest of the week. 5. finally I am glad you have given up drinking alcohol daily Patient Care team information Care Team Personnel Name: Orlin Hollingsworth MD Position: [facility] Primary Care Physician Member Role: PCP Address: Address: [address] [place] [address] Adult [place] [address]- Care Team Related Persons Name: DERRELL FLORES Name: LACY BARGER Address: home [address] [place] [address]
--- OUTSIDE RECORDS SUMMARY | 2023-12-10 21:10 | XMS_ITS | Continuity of Care Document ---
Author Organization [facility] Address [address] [place] [address]- Care Team Providers Care Corporate Giving Manager Name Role Phone Darrick APONTE, Orlin Primary Care Physician [facility] Date(s): 03/[facility]/23 - 04/29/23 [facility] [address] [place], [place] [address] Allergies, Adverse Reactions, Alerts No [...] virus vaccine, inactivated 11/28/14 César rded SARS-CoV-2(COVID-19)mRNA-LNP vac([id number]) 12/23/22 Recorded [id number] 12y+ bivalent booster vax 09/15/22 Recorded [id number] 12y+ bivalent booster vax 12/31/21 Recorded SARS-CoV-2 [...] tablet, 3 Refills, Maintenance, 09/06/22 10:55:00 EDT, [facility] #[id number], 152.4, cm, 09/06/22 10:53:00 EDT, Height Start Date: 09/06/22 Stop Date: 09/01/23 Status: Ordered atorvastatin 40 mg oral tablet 1 tablet, By Mouth, Daily, # 90 tablet, 3 Refills, Maintenance, 09/06/22 10:56:00 EDT, [facility] #[id number], 152.4, cm, 09/06/22 10:53:00 EDT, Height Start Date: 09/06/22 Stop Date: 09/01/23 Status: Ordered Centrum Silver 1 tablet, By Mouth, Daily, 0 Refills, Maintenance, 06/12/15 17:52:27 Start Date: 06/12/15 Stop Date: 07/12/15 Status: Ordered levothyroxine 0.05 mg oral tablet 1 tablet, By Mouth, Daily, # 90 tablet, 3 Refills, Maintenance, 09/06/22 10:56:00 EDT, [facility] #[id number], 152.4, cm, 09/06/22 10:53:00 EDT, Height Start Date: 09/06/22 Stop Date: 09/01/23 Status: Ordered lisinopril 30 mg oral tablet 1 tablet = 30 mg, By Mouth, Daily, # 90 tablet, 4 Refills, Maintenance, 09/06/22 10:55:00 EDT, Tablet, [facility] #[id number], increase in dose, 152.4, cm, 09/06/22 10:53:00 EDT, Height Start Date: 09/06/22 Stop Date: 11/30/23 Status: Ordered venlafaxine 75 mg oral capsule, extended release 75 mg, 1, capsule, By Mouth, Daily, # 90 capsule, Refills 3, Tot. Refills 3, Maintenance, 07/11/22 9:39:00 EDT, Route to Pharmacy Electronically, [facility] #[id number], dose lowered back down.,152.4, cm, 07/05/22 10:56:00 [...] Team Personnel Name: Orlin Hollingsworth MD Position: S Physician - Primary Care Member Role: PCP Address: Address: [address] [place] [address] Adult [place] [address]- Care Team Related Persons Name: DERRELL FLORES Name: LACY BARGER Address: home [address] [place] [address]
--- OUTSIDE RECORDS SUMMARY | 2023-12-10 21:10 | XMS_ITS | Continuity of Care Document ---
Author Organization [facility] Address [address] [place] [address]- Care Team Providers Care Reservoir Engineering Manager Name Role Phone Orlin Hollingsworth MD Primary Care Physician [facility] Date(s): 04/22/19 - 04/29/19 [facility] [address] [place] [address]- [facility] Attending Physician: Orlin Hollingsworth MD Allergies, Adverse [...] Refills, Maintenance, Tablet, Route to Pharmacy Electronically, [id number], [facility] [address] Start Date: 05/31/18 Stop Date: 05/26/19 Status: Ordered Centrum Silver 1 tablet, By Mouth, Daily, 0 Refills, Maintenance, 06/12/15 17:52:27 Start Date: 06/12/15 Stop Date: 07/12/15 Status: Ordered levothyroxine 0.05 mg oral tablet 1 tablet = 50 mcg, By Mouth, Daily, # 90 tablet, 1 Refills, Maintenance, 12/10/18 10:01:09 EDT, Tablet Start Date: 12/10/18 Stop Date: 06/08/19 Status: Ordered Problem List Condition Effective Dates [...] syndrome(Confirmed) Active 1CT chest at [facility] Vital Signs Most recent to oldest [Reference Range]: 1 2 Height 152.4 cm (04/22/19 3:07 PM) 152.4 cm (04/22/19 2:49 PM) Weight 69.9 kg (04/22/19 2:49 PM) Oxygen Saturation [94-100 %] 97 % (04/22/19 2:49 PM) Pulse Rate [55-90 bpm] 86 bpm (04/22/19 3:07 PM) 120 bpm *H* (04/22/19 2:49 PM) Body Mass Index [18.5-24.99] 30.1 *>HHI* (04/22/19 2:49 PM) Blood Pressure [90-138/55-84 mm Hg] 154/ 80mm Hg *H* (04/22/19 3:07 PM) 178/98mm Hg *H* (04/22/19 2:49 PM) Mode of Delivery (Oxygen) Room air (04/22/19 2:49 PM) Blood pressure sites Arm, left (04/22/19 2:49 PM) Social History Social History Type Response Smoking Status Never smoker; Tobacc o user in household: No entered on: 06/12/15 Sex
--- OUTSIDE RECORDS SUMMARY | 2023-12-10 21:10 | XMS_ITS | Continuity of Care Document ---
Author Organization [facility] Address [address] [place] [address]- Care Team Providers Care Equity Director Name Role Phone Orlin Hollingsworth MD Primary Care Physician Encounter [facility] Date(s): 03/23/20 - 03/30/20 [facility] [address] [place], [place] [address] Encounter Diagnosis Alcohol abuse(Discharge Diagnosis) - 03/23/20 Hypothyroidism(Discharge Diagnosis) - 03/23/20 Hypercholesterolemia(Discharge Diagnosis) - 03/23/20 Hypertension(Discharge Diagnosis) - 03/23/20 Attending Physician: Orlin Hollingsworth MD Allergies, Adverse [...] 3 Refills, Maintenance, 06/27/19 14:24:00 EDT, Tablet, [facility] #[id number], 152.4, cm, 05/17/19 11:32:00 EST, Height Start Date: 06/27/19 Stop Date: 06/21/20 Status: Ordered atorvastatin 40 mg oral tablet 1 tablet = 40 mg, By Mouth, Daily, # 90 tablet, 3 Refills, Maintenance, 06/27/19 14:23:00 EDT, Tablet, [facility] #[id number], 152.4, cm, 05/17/19 11:32:00 EST, Height Start Date: 06/27/19 Stop Date: 06/21/20 Status: Ordered Centrum Silver 1 tablet, By Mouth, Daily, 0 Refills, Maintenance, 06/12/15 17:52:27 Start Date: 06/12/15 Stop Date: 07/12/15 Status: Ordered levothyroxine 0.05 mg oral tablet 1 tablet = 50 mcg, By Mouth, Daily, # 90 tablet, 3 Refills, Maintenance, 06/27/19 14:24:00 EDT, Tablet, [facility] #[id number], 152.4, cm, 05/17/19 11:32:00 EST, Height Start [...] Effective Dates Health Status Clinical Service Informant Alcohol abuse Discharge Diagnosis 03/23/20 Hypothyroidism Discharge Diagnosis 03/23/20 Hypercholesterolemia Discharge Diagnosis 03/23/20 Hypertension Discharge Diagnosis 03/23/20 Social History Social History Type Response Smoking Status Never (less than 100 in lifetime) entered on: 06/27/19 Sex
--- OUTSIDE RECORDS SUMMARY | 2023-12-10 21:10 | XMS_ITS | Continuity of Care Document ---
Author Organization [facility] Address [address] [place] [address]- Care Team Providers Care Vascular Neurologist Name Role Phone Darrick APONTE, Orlin Primary Care Physician Encounter [facility] Date(s): 03/23/20 - 04/22/20 [facility] [address] [place], [place] [address] Attending Physician: Eleazar Jackson Admitting Physician: AdmtrEleazar Referring Physician: Admtr, Eleazar Allergies, Adverse Reactions, Alerts No Known Medication [...] 3 Refills, Maintenance, 06/27/19 14:24:00 EDT, Tablet, [facility] #[id number], 152.4, cm, 05/17/19 11:32:00 EST, Height Start Date: 06/27/19 Stop Date: 06/21/20 Status: Ordered atorvastatin 40 mg oral tablet 1 tablet = 40 mg, By Mouth, Daily, # 90 tablet, 3 Refills, Maintenance, 06/27/19 14:23:00 EDT, Tablet, [facility] #[id number], 152.4, cm, 05/17/19 11:32:00 EST, Height Start Date: 06/27/19 Stop Date: 06/21/20 Status: Ordered Centrum Silver 1 tablet, By Mouth, Daily, 0 Refills, Maintenance, 06/12/15 17:52:27 Start Date: 06/12/15 Stop Date: 07/12/15 Status: Ordered levothyroxine 0.05 mg oral tablet 1 tablet = 50 mcg, By Mouth, Daily, # 90 tablet, 3 Refills, Maintenance, 06/27/19 14:24:00 EDT, Tablet, [facility] #[id number], 152.4, cm, 05/17/19 11:32:00 EST, Height Start [...]
--- OUTSIDE RECORDS SUMMARY | 2023-12-10 21:10 | XMS_ITS | Continuity of Care Document ---
Author Organization [facility] Address [address] [place] [address]- Care Team Providers Care Camp Cook Name Role Phone Orlin Hollingsworth MD Primary Care Physician Encounter [facility] Date(s): 08/07/23 - 09/06/23 [facility] [address] [place], [place] [address] Allergies, Adverse Reactions, Alerts No Known Medication [...] virus vaccine, inactivated 11/28/14 César rded SARS-CoV-2(COVID-19)mRNA-LNP vac(azs773) 12/23/22 Recorded [id number] 12y+ bivalent booster vax 09/15/22 Recorded [id number] 12y+ bivalent booster vax 12/31/21 Recorded SARS-CoV-2 [...] Maintenance,08/10/23 7:37:00 EDT, Route to Pharmacy Electronically, [facility] #[id number], Partial fill upon patient request if the prescription is for a hernandez... Start Date: 08/10/23 Stop Date: 12/08/23 Status: Ordered atenolol 100 mg oral tablet 1 tablet, By Mouth, Daily, # 90 tablet, 3 Refills, Maintenance, 09/06/22 10:55:00 EDT, [facility] #[id number], 152.4, cm, 09/06/22 10:53:00 EDT, Height Start Date: 09/06/22 Stop Date: 09/01/23 Status: Ordered atorvastatin 40 mg oral tablet 1 tablet, By Mouth, Daily, # 90 tablet, 1 Refills, Maintenance, 08/07/23 14:17:00 EDT, [facility] #[id number], 152.4, cm, 03/23/23 14:42:00 EST, Height Start Date: 08/07/23 Status: Ordered busPIRone 10 mg oral tablet 10 mg, 1, tablet, By Mouth, Daily at bedtime, # 90 tablet, Refills 1, Tot. Refills 1, Maintenance, 08/15/23 15:55:00 EDT, Route to Pharmacy Electronically, [facility] #[id number], Partial fill upon patient request if the prescription is for a hernandez... Start Date: 08/15/23 Stop Date: 02/11/24 Status: Ordered Centrum Silver 1 tablet, By Mouth, Daily, 0 Refills, Maintenance, 06/12/15 17:52:27 Start Date: 06/12/15 Stop Date: 07/12/15 Status: Ordered levothyroxine 0.05 mg oral tablet 1 tablet, By Mouth, Daily, # 90 tablet, 3 Refills, Maintenance, 09/06/22 10:56:00 EDT, [facility] #[id number], 152.4, cm, 09/06/22 10:53:00 EDT, Height Start Date: 09/06/22 Stop Date: 09/01/23 Status: Ordered lisinopril 30 mg oral tablet 1 tablet = 30 mg, By Mouth, Daily, # 90 tablet, 4 Refills, Maintenance, 09/06/22 10:55:00 EDT, Tablet, [facility] #[id number], increase in dose, 152.4, cm, 09/06/22 10:53:00 EDT, Height Start Date: 09/06/22 Stop Date: 11/30/23 Status: Ordered venlafaxine 75 mg oral capsule, extended release 75 mg, 1, capsule, By Mouth, Daily, # 90 capsule, Refills 1, Tot. Refills 1, Maintenance, 07/26/23 11:09:00 EDT, Route to Pharmacy Electronically, [facility] #[id number], dose lowered back down., 152.4, cm, 03/23/23 [...] Team Personnel Name: Orlin Hollingsworth MD Position: [facility] Physician - Primary Care Member Role: PCP Address: Address: [address] [place] [address] Adult [place] [address]- Care Team Related Persons Name: DERRELL FLORES Name: LACY BARGER Address: [address] [address]
--- OUTSIDE RECORDS SUMMARY | 2023-12-10 21:10 | XMS_ITS | Continuity of Care Document ---
Author Organization [facility] Address [address] [place] [address]- Care Team Providers Care Tie Knitter Helper Name Role Phone Orlin Hollingsworth MD Primary Care Physician Encounter [facility] Date(s): 11/24/21 - 12/01/21 [facility] [address] [place], [place] [address] Encounter Diagnosis Alcohol abuse(Discharge Diagnosis) - 11/24/21 Anxiety(Discharge Diagnosis) - 11/24/21 Hypertension(Discharge Diagnosis) - 11/24/21 Vasomotor rhinitis(Discharge Diagnosis) - 11/24/21 Attending Physician: Orlin Hollingsworth MD Allergies, Adverse [...] Mouth, Daily, # 90 tablet, 0 Refills, [facility] #[id number], 152.4, cm, 08/24/2213:15:00 EDT, Height Start Date: 09/15/21 Status: Ordered atorvastatin 40 mg oral tablet 1 tablet, By Mouth, Daily, DUPLICATE FROM 08/03/20., # 90 tablet, 1 Refills, [facility] #[id number], 152.4, cm, 02/09/21 15:32:00 EST, Height Start Date: 05/17/21 Status: Ordered Centrum Silver 1 tablet, By Mouth, Daily, 0 Refills, Maintenance, 06/12/15 17:52:27 Start Date: 06/12/15 Stop Date: 07/12/15 Status: Ordered levothyroxine 0.05 mg oral tablet 1 tablet, By Mouth, Daily, # 90 tablet, 1 Refills, [facility] #[id number], 152.4, cm, 08/24/2213:15:00 EDT, Height Start Date: 10/17/21 Status: Ordered lisinopril 20 mg oral tablet 20 mg, 1, tablet, By Mouth, Daily, # 30 tablet, Refills 5, Tot. Refills 5, Maintenance, 11/24/21 14:46:00 EDT, Route to Pharmacy Electronically, [facility] #[id number], increase in dose, 152.4, cm, 11/24/21 14:39:00 EDT, Height Start Date: 11/24/21 Stop Date: 05/23/22 Status: Ordered traZODone 50 mg oral tablet 50 mg, 1, tablet, By Mouth, Daily at bedtime, # 30 tablet, Refills 0, Tot. Refills 0, Maintenance, 11/24/21 14:47:00 EDT, Route to Pharmacy Electronically, [facility] #[id number], Partial fill upon patient request if the prescription is for a hernandez... Start Date: 11/24/21 Stop Date: 12/24/21 Status: Ordered venlafaxine 75 mg oral capsule, extended release 1 capsule = 75 mg, By Mouth, Daily, # 30 capsule, 1 Refills, Maintenance, 11/24/21 14:40:00 EDT, ERCapsule, [facility] #[id number], reploaces 37;.5mg ER, 152.4, cm, 08/24/21 14:15:00 EDT, Height Start Date: 11/24/21 Stop Date: 01/23/22 Status: Ordered Problem List Condition Effective Dates [...] Clinical Service Informant Alcohol abuse Discharge Diagnosis 11/24/21 Anxiety Discharge Diagnosis 11/24/21 Hypertension Discharge Diagnosis 11/24/21 Vasomotor rhinitis Discharge Diagnosis 11/24/21 Vital Signs Most recent to oldest [Reference Range]: 1 Height 152.4 cm (11/24/21 2:39 PM) Weight 59.0 kg (11/24/21 2:39 PM) Oxygen Saturation [94-100 %] 98 % (11/24/21 2:39 PM) Pulse Rate [55-90 bpm] 74 bpm (11/24/21 2:39 PM) Body Mass Index [18.5-24.99] 25.4 *H* (11/24/21 2:39 PM) Blood Pressure [90-138/55-84 mm Hg] 138/ 82mm Hg (11/24/21 2:39 PM) Mode of Delivery (Oxygen) Room air (11/24/21 2:39 PM) Blood pressure sites Arm, left (11/24/21 2:39 PM) Social History Social History Type Response Smoking Status Never (less than 100 in lifetime) entered on: 06/27/19 Sex Care Team Personnel Name: Orlin Hollingsworth MD Address: [address] [place] [address] [facility] [address]
--- OUTSIDE RECORDS SUMMARY | 2023-12-10 21:10 | XMS_ITS | Continuity of Care Document ---
Author Organization [facility] Address [address] [place] [address]- Care Team Providers Care Electrical Sign Servicer Name Role Phone Orlin Hollingsworth MD Primary Care Physician [facility]counter [facility] Date(s): 08/24/21 - 09/23/21 [facility] [address] [place], [place] [address] Allergies, Adverse Reactions, Alerts No Known [...] Mouth, Daily, # 90 tablet, 0 Refills, [facility] #[id number], 152.4, cm, 08/24/2213:15:00 EDT, Height Start Date: 09/15/21 Status: Ordered atorvastatin 40 mg oral tablet 1 tablet, By Mouth, Daily, DUPLICATE FROM 08/03/20., # 90 tablet, 1 Refills, [facility] #[id number], 152.4, cm, 02/09/21 15:32:00 EST, Height Start Date: 05/17/21 Status: Ordered Centrum Silver 1 tablet, By Mouth, Daily, 0 Refills, Maintenance, 06/12/15 17:52:27 Start Date: 06/12/15 Stop Date: 07/12/15 Status: Ordered levothyroxine 0.05 mg oral tablet 1 tablet, By Mouth, Daily, # 90 tablet, 1 Refills, [facility] #[id number], 152.4, cm, 02/09/2115:32:00 EST, Height Start Date: 04/03/21 Status: Ordered lisinopril 10 mg oral tablet 10 mg, 1, tablet, By Mouth, Daily in AM, # 90 tablet, Refills 3, Tot. Refills 3, Maintenance, 12/25/20 11:05:00 EDT, Route to Pharmacy Electronically, [facility] #[id number], Partial fill upon patient request if the prescription is for a schedule... Start Date: 12/25/20 Stop Date: 12/20/21 Status: Ordered sertraline 50 mg oral tablet See Instructions, 2 tablets By Mouth Daily for 1 week, then 1 tablet daily x 2 weeks, then 1/2 tablet daily for 2 weeks then stop, # 35 tablet, 0 Refills, Maintenance, 08/24/21 14:37:00 EDT, Tablet, [facility] #[id number], weaning dose, 152.4, cm... Start Date: 08/24/21 Status: Ordered venlafaxine 37.5 mg oral capsule, extended release 37.5 mg, 1, capsule, By Mouth, Daily, start only after 4 weeks, # 30 capsule, Refills 3, Tot. Refills 3, Maintenance, 08/24/21 14:40:00 EDT, Route to Pharmacy Electronically, [facility] #[id number], Partial fill upon patient request if the [...]
--- OUTSIDE RECORDS SUMMARY | 2023-12-10 21:10 | XMS_ITS | Continuity of Care Document ---
Author Organization [facility] Address [address] [place] [address]- Care Team Providers Care Traffic Recorder Name Role Phone Darrick APONTE, Orlni Primary Care Physician [facility]counter [facility] Date(s): 11/03/20 - 12/03/20 [facility] [address] [place], [place] [address] Allergies, Adverse Reactions, Alerts No [...] 1 Refills, Maintenance, 08/04/20 10:17:00 EDT, Tablet, [facility] #[id number], 152.4, cm, 05/17/19 11:32:00 EST, Height Start Date: 08/04/20 Stop Date: 01/31/21 Status: Ordered atorvastatin 40 mg oral tablet 1 tablet, By Mouth, Daily, Duplicate from 08/03/20, # 90 tablet, 2 Refills, Maintenance, 08/05/20 10:05:00 EDT, [facility] #[id number], 152.4, cm, 05/17/19 11:32:00 EST, Height Start Date: 08/05/20 Status: Ordered Centrum Silver 1 tablet, By Mouth, Daily, 0 Refills, Maintenance, 06/12/15 17:52:27 Start Date: 06/12/15 Stop Date: 07/12/15 Status: Ordered levothyroxine 0.05 mg oral tablet 1 tablet, By Mouth, Daily, # 90 tablet, 1 Refills, Maintenance, 10/19/20 10:07:00 EDT, [facility] #[id number], 152.4, cm, 10/09/20 9:56:00 EDT, Height Start Date: 10/19/20 Status: Ordered lisinopril 10 mg oral tablet 10 mg, 1, tablet, By Mouth, Daily in AM, # 30 tablet, Refills 5, Tot. Refills 5, Maintenance, 10/09/20 10:05:00 EDT, Route to Pharmacy Electronically, [facility] #[id number], Partial fill upon patient request if the prescription is for a schedule... Start Date: 10/09/20 Stop Date: 04/07/21 Status: Ordered sertraline 100 mg oral tablet 0.5 tablet = 50 mg, By Mouth, Daily, # 45 tablet, 2 Refills, Maintenance, 10/09/20 9:59:00 EDT, Tablet, [facility] #[id number], increase in dose, 152.4, cm, 10/09/20 9:56:00 [...]
--- OUTSIDE RECORDS SUMMARY | 2023-12-10 21:10 | XMS_ITS | Continuity of Care Document ---
Author Organization [facility] Address [address] [place] [address]- Care Team Providers Care Him Coder Name Role Phone Orlin Hollingsworth MD Primary Care Physician [facility] Date(s): 08/30/21 - 09/29/21 [facility] [address] [place], [place] [address] Allergies, Adverse Reactions, Alerts No Known Medication [...] 6 10/17/17 Given Zoster Vaccine Live 7 3/28/16 Given pneumococcal 13-valent vaccine 8 06/15/15 Given [...] Mouth, Daily, # 90 tablet, 0 Refills, [facility] #[id number], 152.4, cm, 08/24/2213:15:00 EDT, Height Start Date: 09/15/21 Status: Ordered atorvastatin 40 mg oral tablet 1 tablet, By Mouth, Daily, DUPLICATE FROM 08/03/20., # 90 tablet, 1 Refills, [facility] #[id number], 152.4, cm, 02/09/21 15:32:00 EST, Height Start Date: 05/17/21 Status: Ordered Centrum Silver 1 tablet, By Mouth, Daily, 0 Refills, Maintenance, 06/12/15 17:52:27 Start Date: 06/12/15 Stop Date: 07/12/15 Status: Ordered levothyroxine 0.05 mg oral tablet 1 tablet, By Mouth, Daily, # 90 tablet, 1 Refills, [facility] #[id number], 152.4, cm, 02/09/2115:32:00 EST, Height Start Date: 04/03/21 Status: Ordered lisinopril 10 mg oral tablet 10 mg, 1, tablet, By Mouth, Daily in AM, # 90 tablet, Refills 3, Tot. Refills 3, Maintenance, 12/25/20 11:05:00 EDT, Route to Pharmacy Electronically, [facility] #[id number], Partial fill upon patient request if the prescription is for a schedule... Start Date: 12/25/20 Stop Date: 12/20/21 Status: Ordered sertraline 50 mg oral tablet See Instructions, 2 tablets By Mouth Daily for 1 week, then 1 tablet daily x 2 weeks, then 1/2 tablet daily for 2 weeks then stop, # 35 tablet, 0 Refills, Maintenance, 08/24/21 14:37:00 EDT, Tablet, [facility] #[id number], weaning dose, 152.4, cm... Start Date: 08/24/21 Status: Ordered venlafaxine 37.5 mg oral capsule, extended release 37.5 mg, 1, capsule, By Mouth, Daily, start only after 4 weeks, # 30 capsule, Refills 3, Tot. Refills 3, Maintenance, 08/24/21 14:40:00 EDT, Route to Pharmacy Electronically, [facility] #[id number], Partial fill upon patient request if the [...]
--- OUTSIDE RECORDS SUMMARY | 2023-12-10 21:10 | XMS_ITS | Continuity of Care Document ---
Author Organization [facility] Address [address] [place] [address]- Care Team Providers Care Tax Representative Name Role Phone Orlin Hollingsworth MD Primary Care Physician [facility] Date(s): 05/17/19 - 05/24/19 [facility] [address] [place] [address]- [facility] Attending Physician: Orlin Hollingsworth MD Allergies, [...] Refills, Maintenance, Tablet, Route to Pharmacy Electronically, [facility]-[id number], [facility] [address] [facility] Start Date: 05/31/18 Stop Date: 05/26/19 Status: Ordered Centrum Silver 1 tablet, By Mouth, Daily, 0 Refills, Maintenance, 06/12/15 17:52:27 Start Date: 06/12/15 Stop Date: 07/12/15 Status: Ordered doxycycline hyclate 100 mg oral capsule 1 capsule = 100 mg, By Mouth, 2 times a day, for 10 days, # 20 capsule, 0 Refills, Acute 05/27/19 11:49:00 EDT, 05/17/19 11:49:00 EST, Capsule, [facility] #[id number], 152.4, cm, 05/17/19 11:32:00 EST, Height Start Date: 05/17/19 Stop Date: 05/27/19 Status: Ordered levothyroxine 0.05 mg oral tablet 1 tablet = 50 mcg, By Mouth, Daily, # 90 tablet, 1 Refills, Maintenance, 12/10/18 10:01:09 EDT, Tablet Start Date: 12/10/18 Stop Date: 06/08/19 Status: Ordered Tessalon Perles 100 mg oral capsule 1 capsule = 100 mg, By Mouth, 3 times a day, PRN Cough, # 21 capsule, 0 Refills, Maintenance, 05/17/19 11:50:00 EST, Capsule, [facility] #[id number], 152.4, cm, 05/17/19 11:32:00 EST, Height Start [...] oldest [Reference Range]: 1 Height 152.4 cm (05/17/19 11:32 AM) Weight 68.6 kg (05/17/19 11:32 AM) Oxygen Saturation [94-100 %] 95 % (05/17/19 11:32 AM) Pulse Rate [55-90 bpm] 72 bpm (05/17/19 11:32 AM) Body Mass Index [18.5-24.99] 29.54 *H* (05/17/19 11:32 AM) Blood Pressure [90-138/55-84 mm Hg] 132/ 82mm Hg (05/17/19 11:32 AM) Temperature [96.8-100.4 DegF] 97.9 DegF (05/17/19 11:32 AM) Mode of Delivery (Oxygen) Room air (05/17/19 11:32 AM) Blood pressure sites Arm, left (05/17/19 11:32 AM) Temperature Route Oral (05/17/19 11:32 AM) Social History Social History Type Response Smoking Status Never smoker; Tobacc o user in household: No entered on: 06/12/15 Sex
--- OUTSIDE RECORDS SUMMARY | 2023-12-10 21:10 | XMS_ITS | Continuity of Care Document ---
Author Organization [facility] Address [address] [place] [address]- Care Team Providers Care Security Representative Name Role Phone Orlin Hollingsworth MD Primary Care Physician Encounter [facility] Date(s): 08/24/21 - 08/31/21 [facility] [address] [place], [place] [address] Attending Physician: Orlin Hollingsworth [...] inactivated 12/29/17 Recorded Zoster Vaccine Live 6 7/31/18 Given Zoster Vaccine Live 7 06/15/15 Given [...] Mouth, Daily, # 90 tablet, 1 Refills, [facility] #[id number], 152.4, cm, 02/09/2115:32:00 EST, Height Start Date: 03/23/21 Status: Ordered atorvastatin 40 mg oral tablet 1 tablet, By Mouth, Daily, DUPLICATE FROM 08/03/20., # 90 tablet, 1 Refills, [facility] #[id number], 152.4, cm, 02/09/21 15:32:00 EST, Height Start Date: 05/17/21 Status: Ordered Centrum Silver 1 tablet, By Mouth, Daily, 0 Refills, Maintenance, 06/12/15 17:52:27 Start Date: 06/12/15 Stop Date: 07/12/15 Status: Ordered levothyroxine 0.05 mg oral tablet 1 tablet, By Mouth, Daily, # 90 tablet, 1 Refills, [facility] #[id number], 152.4, cm, 02/09/2115:32:00 EST, Height Start Date: 04/03/21 Status: Ordered lisinopril 10 mg oral tablet 10 mg, 1, tablet, By Mouth, Daily in AM, # 90 tablet, Refills 3, Tot. Refills 3, Maintenance, 12/25/20 11:05:00 EDT, Route to Pharmacy Electronically, [facility] #[id number], Partial fill upon patient request if the prescription is for a schedule... Start Date: 12/25/20 Stop Date: 12/20/21 Status: Ordered sertraline 50 mg oral tablet See Instructions, 2 tablets By Mouth Daily for 1 week, then 1 tablet daily x 2 weeks, then 1/2 tablet daily for 2 weeks then stop, # 35 tablet, 0 Refills, Maintenance, 08/24/21 14:37:00 EDT, Tablet, [facility] #[id number], weaning dose, 152.4, cm... Start Date: 08/24/21 Status: Ordered venlafaxine 37.5 mg oral capsule, extended release 37.5 mg, 1, capsule, By Mouth, Daily, start only after 4 weeks, # 30 capsule, Refills 3, Tot. Refills 3, Maintenance, 08/24/21 14:40:00 EDT, Route to Pharmacy Electronically, [facility] #[id number], Partial fill upon patient request if the [...] oldest [Reference Range]: 1 Height 152.4 cm (08/24/21 2:15 PM) Weight 56.3 kg (08/24/21 2:15 PM) Oxygen Saturation [94-100 %] 98 % (08/24/21 2:15 PM) Pulse Rate [55-90 bpm] 96 bpm *H* (08/24/21 2:15 PM) Body Mass Index [18.5-24.99] 24.24 (08/24/21 2:15 PM) Blood Pressure [90-138/55-84 mm Hg] 150/ 90mm Hg *H* (08/24/21 2:15 PM) Mode of Delivery (Oxygen) Room air (08/24/21 2:15 PM) Blood pressure sites Arm, left (08/24/21 2:15 PM) Social History Social History Type Response Smoking Status Never (less than 100 in lifetime) entered on: 06/27/19 Sex
--- OUTSIDE RECORDS SUMMARY | 2023-12-10 21:10 | XMS_ITS | Continuity of Care Document ---
Author Organization [facility] Address [address] [place] [address]- Care Team Providers Care Advertising Job Titles Name Role Phone Orlin Hollingsworth MD Primary Care Physician [place] [facility]/10/23 - 09/30/23 [facility] [address] [place], [place] [address] Attending Physician: Orlin Hollingsworth MD Allergies, Adverse Reactions, Alerts No Known Medication Allergies Immunizations Given and Recorded Vaccine Date Status Refusal Reason SARS-CoV-2(COVID-19)mRNA-LNP vac([id number]) 06/27/23 Recorded SARS-CoV-2(COVID-19)mRNA-LNP vac([id number]) 12/23/22 Recorded RSV vaccine, preF A-preF B, recombinant 04/18/23 R ecorded influenza virus vaccine, inactivated 12/23/22 César rded [...] influenza virus vaccine, inactivated 11/28/14 César rded [id number] 12y+ bivalent booster vax 09/15/22 Recorded [id number] 12y+ bivalent booster vax 12/31/21 Recorded SARS-CoV-2 [...] Maintenance,08/10/23 7:37:00 EDT, Route to Pharmacy Electronically, [facility] #[id number], Partial fill upon patient request if the prescription is for a hernandez... Start Date: 08/10/23 Stop Date: 12/08/23 Status: Ordered atenolol 100 mg oral tablet 1 tablet, By Mouth, Daily, # 90 tablet, 3 Refills, Maintenance, 09/06/22 10:55:00 EDT, [facility] #[id number], 152.4, cm, 09/06/22 10:53:00 EDT, Height Start Date: 09/06/22 Stop Date: 09/01/23 Status: Ordered atorvastatin 40 mg oral tablet 1 tablet, By Mouth, Daily, # 90 tablet, 1 Refills, Maintenance, 08/07/23 14:17:00 EDT, [facility] #[id number], 152.4, cm, 03/23/23 14:42:00 EST, Height Start Date: 08/07/23 Status: Ordered busPIRone 10 mg oral tablet 20 mg, 2, tablet, By Mouth, Daily at bedtime, # 180 tablet, Refills 1, Tot. Refills 1, Maintenance,09/28/23 15:07:00 EDT, Do Not Route, Partial fill upon patient request if the prescription is for aschedule II opioid drug. Start Date: 09/28/23 Stop Date: 03/26/24 Status: Ordered Centrum Silver 1 tablet, By Mouth, Daily, 0 Refills, Maintenance, 06/12/15 17:52:27 Start Date: 06/12/15 Stop Date: 07/12/15 Status: Ordered levothyroxine 0.05 mg oral tablet 1 tablet, By Mouth, Daily, # 90 tablet, 3 Refills, Maintenance, 09/29/23 12:10:00 EDT, [facility] #[id number], 152.4, cm, 09/28/23 15:10:00 EDT, Height, 55.1, kg, 09/28/23 15:03:00 EDT, Dry Weight Start Date: 09/29/23 Stop Date: 09/23/24 Status: Ordered lisinopril 30 mg oral tablet 1 tablet = 30 mg, By Mouth, Daily, # 90 tablet, 4 Refills, Maintenance, 09/29/23 12:10:00 EDT, Tablet, [facility] #[id number], increase in dose, 152.4, cm, 09/28/23 15:10:00 EDT, Height, 55.1, kg, 09/28/23 15:03:00 EDT, Dry Weight Start Date: 09/29/23 Stop Date: 12/22/24 Status: Ordered venlafaxine 75 mg oral capsule, extended release 75 mg, 1, capsule, By Mouth, Daily, # 90 capsule, Refills 1, Tot. Refills 1, Maintenance, 07/26/23 11:09:00 EDT, Route to Pharmacy Electronically, [facility] #[id number], dose lowered back down., 152.4, cm, 03/23/23 [...] Team Personnel Name: Orlin Hollingsworth MD Position: [facility] Physician - Primary Care Member Role: PCP Address: Address: [address] [place] [address] Adult & [place] [address]- Care Team Related Persons Name: DERRELL FLORES Name: LACY BARGER Address: [address] [place] [address]
--- OUTSIDE RECORDS SUMMARY | 2023-12-10 21:10 | XMS_ITS | Continuity of Care Document ---
Author Organization [facility] Address [address] [place] [address]- Care Team Providers Care Manufacturing Industrial Engineer Name Role Phone Darrick APONTE, Orlin Primary Care Physician [place] [facility] [place] 09/04/20 - 09/11/20 [facility] [address] [place] [address]- Encounter Diagnosis Alcohol abuse(Discharge Diagnosis) - 09/04/20 Attending Physician: Orlin Hollingsworth MD Allergies, Adverse [...] 1 Refills, Maintenance, 08/04/20 10:17:00 EDT, Tablet, [facility] #[id number], 152.4, cm, 05/17/19 11:32:00 EST, Height Start Date: 08/04/20 Stop Date: 01/31/21 Status: Ordered atorvastatin 40 mg oral tablet 1 tablet, By Mouth, Daily, Duplicate from 08/03/20, # 90 tablet, 2 Refills, Maintenance, 08/05/20 10:05:00 EDT, [facility] #[id number], 152.4, cm, 05/17/19 11:32:00 EST, Height Start Date: 08/05/20 Status: Ordered Centrum Silver 1 tablet, By Mouth, Daily, 0 Refills, Maintenance, 06/12/15 17:52:27 Start Date: 06/12/15 Stop Date: 07/12/15 Status: Ordered levothyroxine 0.05 mg oral tablet 1 tablet, By Mouth, Daily, # 90 tablet, 1 Refills, Maintenance, 07/17/20 17:41:00 EDT, [facility] #[id number], 152.4, cm, 05/17/19 11:32:00 EST, Height Start Date: 07/17/20 Status: Ordered sertraline 50 mg oral tablet 1 tablet = 50 mg, By Mouth, Daily, # 30 tablet, 5 Refills, Maintenance, 09/04/20 11:29:00 EDT, Tablet, [facility] #[id number], increase in dose, 152.4, cm, 05/17/19 11:32:00 EST, Height Start Date: 09/04/20 Stop Date: 03/03/21 Status: Ordered traZODone 50 mg oral tablet 50 mg, 1, tablet, By Mouth, Daily at bedtime, # 30 tablet, Refills 3, Tot. Refills 3, Maintenance, 09/04/20 11:34:00 EDT, Route to Pharmacy Electronically, [facility] #[id number], Partial fill upon patient request if the [...] inical Service Informant Alcohol abuse Discharge Diagnosis 09/04/20 Social History Social History Type Response Smoking Status Never (less than 100 in lifetime) entered on: 06/27/19 Sex
--- OUTSIDE RECORDS SUMMARY | 2023-12-10 21:10 | XMS_ITS | Continuity of Care Document ---
Author Organization [facility] Address [address] [place] [address]- Care Team Providers Care Change Control Specialist Name Role Phone Orlin Hollingsworth MD Primary Care Physician Encounter [facility] Date(s): 08/15/23 - 08/22/23 [facility] [address] [place], [place] [address] Attending Physician: Orlin Hollingsworth MD Allergies, [...] virus vaccine, inactivated 11/28/14 César rded SARS-CoV-2(COVID-19)mRNA-LNP vac([id number]) 12/23/22 Recorded [id number] 12y+ bivalent booster vax 09/15/22 Recorded [id number] 12y+ bivalent booster vax 12/31/21 Recorded SARS-CoV-2 [...] Maintenance,08/10/23 7:37:00 EDT, Route to Pharmacy Electronically, [facility] #[id number], Partial fill upon patient request if the prescription is for a hernandez... Start Date: 08/10/23 Stop Date: 12/08/23 Status: Ordered atenolol 100 mg oral tablet 1 tablet, By Mouth, Daily, # 90 tablet, 3 Refills, Maintenance, 09/06/22 10:55:00 EDT, [facility] #[id number], 152.4, cm, 09/06/22 10:53:00 EDT, Height Start Date: 09/06/22 Stop Date: 09/01/23 Status: Ordered atorvastatin 40 mg oral tablet 1 tablet, By Mouth, Daily, # 90 tablet, 1 Refills, Maintenance, 08/07/23 14:17:00 EDT, [facility] #[id number], 152.4, cm, 03/23/23 14:42:00 EST, Height Start Date: 08/07/23 Status: Ordered busPIRone 10 mg oral tablet 10 mg, 1, tablet, By Mouth, Daily at bedtime, # 90 tablet, Refills 1, Tot. Refills 1, Maintenance, 08/15/23 15:55:00 EDT, Route to Pharmacy Electronically, [facility] #[id number], Partial fill upon patient request if the prescription is for a hernandez... Start Date: 08/15/23 Stop Date: 02/11/24 Status: Ordered Centrum Silver 1 tablet, By Mouth, Daily, 0 Refills, Maintenance, 06/12/15 17:52:27 Start Date: 06/12/15 Stop Date: 07/12/15 Status: Ordered levothyroxine 0.05 mg oral tablet 1 tablet, By Mouth, Daily, # 90 tablet, 3 Refills, Maintenance, 09/06/22 10:56:00 EDT, [facility] #[id number], 152.4, cm, 09/06/22 10:53:00 EDT, Height Start Date: 09/06/22 Stop Date: 09/01/23 Status: Ordered lisinopril 30 mg oral tablet 1 tablet = 30 mg, By Mouth, Daily, # 90 tablet, 4 Refills, Maintenance, 09/06/22 10:55:00 EDT, Tablet, [facility] #[id number], increase in dose, 152.4, cm, 09/06/22 10:53:00 EDT, Height Start Date: 09/06/22 Stop Date: 11/30/23 Status: Ordered venlafaxine 75 mg oral capsule, extended release 75 mg, 1, capsule, By Mouth, Daily, # 90 capsule, Refills 1, Tot. Refills 1, Maintenance, 07/26/23 11:09:00 EDT, Route to Pharmacy Electronically, [facility] #[id number], dose lowered back down., 152.4, cm, 03/23/23 [...] [Reference Range]: 1 2 Height 152.4 cm (08/15/23 3:50 PM) 152.4 cm (08/15/23 3:32 PM) Weight 56.2 kg (08/15/23 3:32 PM) Oxygen Saturation [94-100 %] 96 % (08/15/23 3:32 PM) Pulse Rate [55-90 bpm] 72 bpm (08/15/23 3:50 PM) 76 bpm (08/15/23 3:32 PM) Body Mass Index [18.5-24.99 kg/m2] 24.2 kg/m2 (08/15/23 3:32 PM) Blood Pressure [90-138/55-84 mm Hg] 145/ 84mm Hg *H* (08/15/23 3:50 PM) 153/91mm Hg *H* (08/15/23 3:32 PM) Mode of Delivery (Oxygen) Room air (08/15/23 3:32 PM) Blood pressure sites Arm, left (08/15/23 3:50 PM) Arm, right (08/15/23 3:32 PM) Weight Obtained Via Standing scale (08/15/23 3:32 PM) Social History Social History Type Response Smoking Status Never (less than 100 in lifetime) entered on: 06/27/19 Sex Note * Soila Spence: PERFORM Event Display: Patient Education/Instruction Authored Date: [id number] Ambulatory Adult Visit Summary [facility] [address] [place] [address] Name: ZAYDA BARGER : 1935?? Visit: 08/15/2023 15:20?? Ambulatory Visit Instructions ?? Your Care Team Primary Care Provider Orlin Hollingsworth MD? This Visit Provider Orlin Hollingsworth MD Your Diagnosis Epistaxis White coat syndrome with hypertension Facial contusion Subconjunctival hemorrhage of right eye Insomnia Generalized anxiety disorder Alcohol abuse Vitals Signs Pulse Rate: 72 bpm Height: 152.4 cm Systolic Blood Pressure:??145 mm Hg??High Weight: 56.2 kg Diastolic Blood Pressure: 84 mm Hg Body Mass Index: 24.2 kg/m2 Oxygen Saturation: 96 % Body surface area: 1.54 What to do next Scheduled Follow-Up Appointments 2023 3:00 PM EDT ?? With: Orlin Hollingsworth MD Where: [facility] [address] [place] [address]- Status: Pending Medications The list below reflects the information in our records and provided by you today along with any changes made during this visit. Please continue your medications until treatment is completed or stopped by your provider. If this is different from the information you have or there are other questions,please contact the prescribing provider. What How Much When Instructions New BusPIRone (busPIRone 10 mg oral tablet) 1 tab(s) Oral Daily at Bedtime Duration: 90 Days Refills: 1 Pickup at [facility] #[id number] Changed Amlodipine (amLODIPine 2.5 mg oral tablet) 1 tab(s) Oral Daily at Bedtime Duration: 30 Days Unchanged Atenolol (atenolol 100 mg oral tablet) 1 tab(s) Oral Daily Duration: 90 Days Unchanged Atorvastatin (atorvastatin 40 mg oral tablet) 1 tab(s) Oral Daily Unchanged Levothyroxine (levothyroxine 0.05 mg oral tablet) 1 tab(s) Oral Daily Duration: 90 Days Unchanged Lisinopril (lisinopril 30 mg oral tablet) 1 tab(s) Oral Daily Duration: 90 Days Unchanged Multivitamin With Minerals (Centrum Silver) 1 tab(s) Oral Daily Duration: 30 Days Unchanged Venlafaxine (venlafaxine 75 mg oral capsule, extended release) 1 capsule Oral Daily Duration: 90 Days Pharmacy Information [facility] #[id number]: [address] [place], [place] [id number] [phone] Medications and Immunizations Administered Medications Given During Visit No medications given during this visit.?? Allergies (NKA means No Known Allergies) No Known Medication Allergies Common Emergency Awareness Tips IS IT A STROKE? Act FAST and Check for these signs: FACE Does the face look uneven? ARM Does one arm drift down? SPEECH Does their speech sound strange? TIME Call at any sign of stroke ?? Heart Attack Signs Chest discomfort: Most heart attacks involve discomfort in the center of the chest and lasts more than a few minutes, or goes away and comes back. It can feel like uncomfortable pressure, squeezing, fullness or pain. Discomfort in upper body: Symptoms can include pain or discomfort in one or both arms, back, neck, jaw or stomach. Shortness of breath: With or without discomfort. Other signs: Breaking out in a cold sweat, nausea, or lightheaded. Remember, MINUTES DO MATTER. If you experience any of these heart attack warning signs, call to get immediate medical attention! ?? Smoking can increase your chances of developing chronic health problems and can cause harmful effects to other family members in your house. If you smoke, you are strongly encouraged to quit. Please call [facility] [employer] at [phone] or 6-217-[facility] (2345) or log in to [email or web address] for referrals to smoking cessation programs. ?? The National Suicide Prevention Hotline is available 10/10 if you or someone you know needs to find a reason to keep living. By calling 3-510-471-[employer] (0267) you'll be connected to a skilled, trained counselor at a crisis center in your area. [facility] You can view and manage your care through the patient portal or by using a health care jae of your choosing. [employer] is a website that allows you to securely view your medical information including your hospital discharge summary, office visit summaries, medications and follow-up visits. You can also request appointments, renew medications, and request access to your medical information using a health care jae of your choosing, or just ask a question. You can enroll at [email or web address] or register during your next office visit. [facility], in keeping with [facility] guidance, no longer requires face masks for staff, patientsor visitors in most situations. Similiar to time spent indoors at other locations, there is the chance that you were exposed to repiratory viruses during your time with us (such as flu or COVID-19). If you develop symptoms concerning for a viral respiratory infection, please seek testing (and treatment if indicated) from your medical provider or home test kit. ?? Disclaimer: The information provided is of a general nature and is intended to be used in conjunction with the recommendations and advice of your health care practitioner. Every effort has been made to ensure that the information provided is accurate and complete at the time it is provided to you however, as your needs change, or, as new information becomes available, different or additional instructions may be required. ?? If you have questions, please consult with your primary care provider or pharmacist, as appropriate. This information is not intended to serve as substitution for assessment and evaluation by a qualified health care provider. If you do not have a primary care provider, you may find a [facility] provider by calling [facility] at [phone]. Patient Care team information Care Team Personnel Name: Orlin Hollingsworth MD Position: [facility] Physician - Primary Care Member Role: PCP Address: Address: [address] [place] [address] Adult & [place] [address]- Care Team Related Persons Name: DERRELL FLORES Name: LACY BARGER Address: home [address] [place] [address]
--- OUTSIDE RECORDS SUMMARY | 2023-12-10 21:10 | XMS_ITS | Continuity of Care Document ---
Author Organization [facility] Address [address] [place] [address]- Care Team Providers Care Ecological Technical Officer Name Role Phone Darrick APONTE, Orlin Primary Care Physician Encounter [facility] Date(s): 08/07/20 - 09/06/20 [facility] [address] [place], [place] [address] Allergies, Adverse Reactions, Alerts No Known Medication Allergies Immunizations Given and Recorded Vaccine Date Status Refusal Reason SARS-CoV-2 (COVID-19) mRNA BNT-162b2 vac 03/24/20 Recorded SARS-CoV-2 (COVID-19) mRNA BNT-162y4 vac 04/21/18 Recorded influenza virus vaccine, inactivated [...] 1 Refills, Maintenance, 08/04/20 10:17:00 EDT, Tablet, [facility] #[id number], 152.4, cm, 05/17/19 11:32:00 EST, Height Start Date: 08/04/20 Stop Date: 01/31/21 Status: Ordered atorvastatin 40 mg oral tablet 1 tablet, By Mouth, Daily, Duplicate from 08/03/20, # 90 tablet, 2 Refills, Maintenance, 08/05/20 10:05:00 EDT, [facility] #[id number], 152.4, cm, 05/17/19 11:32:00 EST, Height Start Date: 08/05/20 Status: Ordered Centrum Silver 1 tablet, By Mouth, Daily, 0 Refills, Maintenance, 06/12/15 17:52:27 Start Date: 06/12/15 Stop Date: 07/12/15 Status: Ordered levothyroxine 0.05 mg oral tablet 1 tablet, By Mouth, Daily, # 90 tablet, 1 Refills, Maintenance, 07/17/20 17:41:00 EDT, [facility] #[id number], 152.4, cm, 05/17/19 11:32:00 EST, Height Start Date: 07/17/20 Status: Ordered sertraline 50 mg oral tablet 1 tablet = 50 mg, By Mouth, Daily, # 30 tablet, 5 Refills, Maintenance, 09/04/20 11:29:00 EDT, Tablet, [facility] #[id number], increase in dose, 152.4, cm, 05/17/19 11:32:00 EST, Height Start Date: 09/04/20 Stop Date: 03/03/21 Status: Ordered traZODone 50 mg oral tablet 50 mg, 1, tablet, By Mouth, Daily at bedtime, # 30 tablet, Refills 3, Tot. Refills 3, Maintenance, 09/04/20 11:34:00 EDT, Route to Pharmacy Electronically, [facility] #[id number], Partial fill upon patient request if the [...]
--- OUTSIDE RECORDS SUMMARY | 2023-12-10 21:10 | XMS_ITS | Continuity of Care Document ---
Author Organization [facility] Address [address] [place] [address]- Care Team Providers Care Senior Cognos Developer Name Role Phone Orlin Hollingsworth MD Primary Care Physician Encounter [facility] Date(s): 07/08/22 - 08/07/22 [facility] [address] [place], [place] [address] Allergies, Adverse Reactions, Alerts No Known [...] influenza virus vaccine, inactivated 11/28/14 César rded [id number] 12y+ bivalent booster vax 12/31/21 Recorded SARS-CoV-2 [...] tablet, 2 Refills, Maintenance, 12/15/21 20:42:00 EDT, [facility] #[id number], 152.4, cm, 11/24/21 14:39:00 EDT, Height Start Date: 12/15/21 Status: Ordered atorvastatin 40 mg oral tablet 1 tablet, By Mouth, Daily, # 90 tablet, 1 Refills, Maintenance, 06/11/22 9:41:00 EDT, [facility] #[id number], 152.4, cm, 02/23/22 15:19:00 EST, Height Start Date: 06/11/22 Status: Ordered Centrum Silver 1 tablet, By Mouth, Daily, 0 Refills, Maintenance, 06/12/15 17:52:27 Start Date: 06/12/15 Stop Date: 07/12/15 Status: Ordered levothyroxine 0.05 mg oral tablet 1 tablet, By Mouth, Daily, # 90 tablet, 1 Refills, Maintenance, 04/25/22 17:40:00 EST, [facility] #[id number], 152.4, cm, 02/23/22 15:19:00 EST, Height Start Date: 04/25/22 Status: Ordered lisinopril 30 mg oral tablet 1 tablet = 30 mg, By Mouth, Daily, # 90 tablet, 2 Refills, Maintenance, 02/23/22 15:23:00 EST, Tablet, [facility] #[id number], increase in dose, 152.4, cm, 02/23/22 15:19:00 EST, Height Start Date: 02/23/22 Stop Date: 11/20/22 Status: Ordered venlafaxine 75 mg oral capsule, extended release 75 mg, 1, capsule, By Mouth, Daily, # 90 capsule, Refills 3, Tot. Refills 3, Maintenance, 07/11/22 9:39:00 EDT, Route to Pharmacy Electronically, [facility] #[id number], dose lowered back down.,152.4, cm, 07/05/22 10:56:00 EDT, Height Start Date: 07/11/22 Stop Date: 07/06/23 Status: Ordered Problem List Condition Confirmation Course Effective Dates Status Health Status Informant Alcohol abuse Confirmed Active Anxiety Confirmed Active Diverticulosis of colon Confirmed Active Family history of esophageal cancer (dad) Confirmed Active Family history of breast cancer (sister) Confirmed Active Family history of anxiety disorder (mom) Confirmed Active Family history of stroke (mom) Confirmed Active Family history of hypertension (mom) Confirmed Active S/P tonsillectomy Confirmed Active Hypercholesterolemia Confirmed Active 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 Hypothyroidism Confirmed Active Insomnia Confirmed Active Pulmonary nodules 1 Confirmed 06/03/17 Active Depression, major, recurrent, mild Confirmed Active Restless leg syndrome Confirmed Active 1CT chest at [facility] Social History Social History Type Response Smoking Status Never (less than 100 in lifetime) entered on: 06/27/19 Sex Patient Care team information Care Team Personnel Name: Orlin Hollingsworth MD Position: [facility] Primary Care Physician Member Role: PCP Address: Address: [address] [place] [address] Adult & [place] [address]- Care Team Related Persons Name: DERRELL FLORES Name: LACY BARGER Address: [address] [place] [address]
--- OUTSIDE RECORDS SUMMARY | 2023-12-10 21:10 | XMS_ITS | Continuity of Care Document ---
Author Organization [facility] ter Address [address] [place] [address]- Care Team Providers Care Landing Support Specialist Name Role Phone Orlin Hollingsworth MD Primary Care Physician En[place] [facility] [place] Date(s): 04/22/19 - 04/22/[address] [address]- [facility] Attending Physician: Orlin Hollingsworth MD Allergies, Adverse [...] Refills, Maintenance, Tablet, Route to Pharmacy Electronically, NCPDP_ID-[id number], [facility] Start Date: 05/31/18 Stop Date: 05/26/19 Status: Ordered busPIRone 5 mg oral tablet 5 mg, 1, tablet, By Mouth, 2 times a day, # 60 tablet, Refills 3, Tot. Refills 3, Maintenance, 04/22/19 14:59:00 EST, Route to Pharmacy Electronically, [facility] #[id number], 152.4, cm, 04/22/19 14:49:00 EST, Height Start Date: 04/22/19 Stop Date: 08/20/19 Status: Ordered Centrum Silver 1 tablet, By [...]
--- OUTSIDE RECORDS SUMMARY | 2023-12-10 21:10 | XMS_ITS | Continuity of Care Document ---
Author Organization [facility] Address [address] [place] [address]- Care Team Providers Care Barrow Worker Name Role Phone Orlin Hollingsworth MD Primary Care Physician [facility] Date[facility]): 09/05/22 - 10/05/22 [facility] [address] [place], [place] [address] Allergies, Adverse Reactions, Alerts No [...] influenza virus vaccine, inactivated 11/28/14 César rded [id number] 12y+ bivalent booster vax 12/31/21 Recorded SARS-CoV-2 [...] tablet, 3 Refills, Maintenance, 09/06/22 10:55:00 EDT, [facility] #[id number], 152.4, cm, 09/06/22 10:53:00 EDT, Height Start Date: 09/06/22 Stop Date: 09/01/23 Status: Ordered atorvastatin 40 mg oral tablet 1 tablet, By Mouth, Daily, # 90 tablet, 3 Refills, Maintenance, 09/06/22 10:56:00 EDT, [facility] #[id number], 152.4, cm, 09/06/22 10:53:00 EDT, Height Start Date: 09/06/22 Stop Date: 09/01/23 Status: Ordered Centrum Silver 1 tablet, By Mouth, Daily, 0 Refills, Maintenance, 06/12/15 17:52:27 Start Date: 06/12/15 Stop Date: 07/12/15 Status: Ordered levothyroxine 0.05 mg oral tablet 1 tablet, By Mouth, Daily, # 90 tablet, 3 Refills, Maintenance, 09/06/22 10:56:00 EDT, [facility] #[id number], 152.4, cm, 09/06/22 10:53:00 EDT, Height Start Date: 09/06/22 Stop Date: 09/01/23 Status: Ordered lisinopril 30 mg oral tablet 1 tablet = 30 mg, By Mouth, Daily, # 90 tablet, 4 Refills, Maintenance, 09/06/22 10:55:00 EDT, Tablet, [facility] #[id number], increase in dose, 152.4, cm, 09/06/22 10:53:00 EDT, Height Start Date: 09/06/22 Stop Date: 11/30/23 Status: Ordered venlafaxine 75 mg oral capsule, extended release 75 mg, 1, capsule, By Mouth, Daily, # 90 capsule, Refills 3, Tot. Refills 3, Maintenance, 07/11/22 9:39:00 EDT, Route to Pharmacy Electronically, [facility] #[id number], dose lowered back down.,152.4, cm, 07/05/22 10:56:00 [...] Team Personnel Name: Orlin Hollingsworth MD Position: [facility] Physician - Primary Care Member Role: PCP Address: Address: [address] [place] [address] Adult [place] [address]- Care Team Related Persons Name: DERRELL FLORES Name: LACY BARGER Address: home [address] [place] [address]
--- OUTSIDE RECORDS SUMMARY | 2023-12-10 21:10 | XMS_ITS | Continuity of Care Document ---
Author Organization [facility] Address [address] [place] [address]- Care Team Providers Care Metal Drill Operator Name Role Phone Orlin Hollingsworth MD Primary Care Physician [facility] Date[facility]s): 08/26/21 - 09/25/21 [facility] [address] [place], [place] [address] Allergies, Adverse Reactions, Alerts No Known [...] Mouth, Daily, # 90 tablet, 0 Refills, [facility] #[id number], 152.4, cm, 08/24/2213:15:00 EDT, Height Start Date: 09/15/21 Status: Ordered atorvastatin 40 mg oral tablet 1 tablet, By Mouth, Daily, DUPLICATE FROM 08/03/20., # 90 tablet, 1 Refills, [facility] #[id number], 152.4, cm, 02/09/21 15:32:00 EST, Height Start Date: 05/17/21 Status: Ordered Centrum Silver 1 tablet, By Mouth, Daily, 0 Refills, Maintenance, 06/12/15 17:52:27 Start Date: 06/12/15 Stop Date: 07/12/15 Status: Ordered levothyroxine 0.05 mg oral tablet 1 tablet, By Mouth, Daily, # 90 tablet, 1 Refills, [facility] #[id number], 152.4, cm, 02/09/2115:32:00 EST, Height Start Date: 04/03/21 Status: Ordered lisinopril 10 mg oral tablet 10 mg, 1, tablet, By Mouth, Daily in AM, # 90 tablet, Refills 3, Tot. Refills 3, Maintenance, 12/25/20 11:05:00 EDT, Route to Pharmacy Electronically, [facility] #[id number], Partial fill upon patient request if the prescription is for a schedule... Start Date: 12/25/20 Stop Date: 12/20/21 Status: Ordered sertraline 50 mg oral tablet See Instructions, 2 tablets By Mouth Daily for 1 week, then 1 tablet daily x 2 weeks, then 1/2 tablet daily for 2 weeks then stop, # 35 tablet, 0 Refills, Maintenance, 08/24/21 14:37:00 EDT, Tablet, [facility] #[id number], weaning dose, 152.4, cm... Start Date: 08/24/21 Status: Ordered venlafaxine 37.5 mg oral capsule, extended release 37.5 mg, 1, capsule, By Mouth, Daily, start only after 4 weeks, # 30 capsule, Refills 3, Tot. Refills 3, Maintenance, 08/24/21 14:40:00 EDT, Route to Pharmacy Electronically, [facility] #[id number], Partial fill upon patient request if the [...]
--- OUTSIDE RECORDS SUMMARY | 2023-12-10 21:10 | XMS_ITS | Continuity of Care Document ---
Author Organization [facility] Address [address] [place] [address]- Care Team Providers Care Carbide Tool Die Maker Name Role Phone Orlin Hollingsworth MD Primary Care Physician [place] [facility] [place](s[place] 12/25/20 - 01/01/21 [facility] [address] [place] [address]- Encounter Diagnosis Anxiety(Discharge Diagnosis) - 12/25/20 Hypertension(Discharge Diagnosis) - 12/25/20 Adjustment disorder(Discharge Diagnosis) - 12/25/20 Attending Physician: Orlin Hollingsworth MD Allergies, Adverse [...] 1 Refills, Maintenance, 08/04/20 10:17:00 EDT, Tablet, [facility] #[id number], 152.4, cm, 05/17/19 11:32:00 EST, Height Start Date: 08/04/20 Stop Date: 01/31/21 Status: Ordered atorvastatin 40 mg oral tablet 1 tablet, By Mouth, Daily, Duplicate from 08/03/20, # 90 tablet, 2 Refills, Maintenance, 08/05/20 10:05:00 EDT, [facility] #[id number], 152.4, cm, 05/17/19 11:32:00 EST, Height Start Date: 08/05/20 Status: Ordered Centrum Silver 1 tablet, By Mouth, Daily, 0 Refills, Maintenance, 06/12/15 17:52:27 Start Date: 06/12/15 Stop Date: 07/12/15 Status: Ordered levothyroxine 0.05 mg oral tablet 1 tablet, By Mouth, Daily, # 90 tablet, 1 Refills, Maintenance, 10/19/20 10:07:00 EDT, [facility] #[id number], 152.4, cm, 10/09/20 9:56:00 EDT, Height Start Date: 10/19/20 Status: Ordered lisinopril 10 mg oral tablet 10 mg, 1, tablet, By Mouth, Daily in AM, # 90 tablet, Refills 3, Tot. Refills 3, Maintenance, 12/25/20 11:05:00 EDT, Route to Pharmacy Electronically, [facility] #[id number], Partial fill upon patient request if the prescription is for a schedule... Start Date: 12/25/20 Stop Date: 12/20/21 Status: Ordered sertraline 100 mg oral tablet 1.5 tablet = 150 mg, By Mouth, Daily, # 135 tablet, 3 Refills, Maintenance, 12/25/20 11:02:00 EDT, Tablet, [facility] #[id number], increase in dose, 152.4, cm, 12/25/20 10:52:00 [...] Effective Dates Health Status Clinical Service Informant Anxiety Discharge Diagnosis 12/25/20 Hypertension Discharge Diagnosis 12/25/20 Adjustment disorder Discharge Diagnosis 12/25/20 Vital Signs Most recent to oldest [Reference Range]: 1 2 Height 152.4 cm (12/25/20 11:04 AM) 152.4 cm (12/25/20 10:52 AM) Weight 58.6 kg (12/25/20 10:52 AM) Oxygen Saturation [94-100 %] 98 % (12/25/20 10:52 AM) Pulse Rate [55-90 bpm] 74 bpm (12/25/20 10:52 AM) Body Mass Index [18.5-24.99] 25.23 *H* (12/25/20 10:52 AM) Blood Pressure [90-138/55-84 mm Hg] 122/ 80mm Hg (12/25/20 11:04 AM) Systolic Blood Pressure [90-138 mm Hg] 9 8 mm Hg (12/25/20 10:52 AM) Temperature [96.8-100.4 DegF] 97.4 DegF (12/25/20 10:52 AM) Mode of Delivery (Oxygen) Room air (12/25/20 10:52 AM) Blood pressure sites Arm, left (12/25/20 10:52 AM) Temperature Route Temporal (12/25/20 10:52 AM) Social History Social History Type Response Smoking Status Never (less than 100 in lifetime) entered on: 06/27/19 Sex
--- OUTSIDE RECORDS SUMMARY | 2023-12-10 21:10 | XMS_ITS | Continuity of Care Document ---
Author Organization [facility] Address [address] [place] [address]- Care Team Providers Care Cargo Station Worker Name Role Phone Orlin Hollingsworth MD Primary Care Physician Encounter [facility] [place] Date(s): 09/06/22 - 09/13/22 [facility] [address] [place], [place] [address] Attending Physician: Orlin Hollingsworth [...] influenza virus vaccine, inactivated 11/28/14 César rded [id number] 12y+ bivalent booster vax 12/31/21 Recorded SARS-CoV-2 [...] tablet, 3 Refills, Maintenance, 09/06/22 10:55:00 EDT, [facility] #[id number], 152.4, cm, 09/06/22 10:53:00 EDT, Height Start Date: 09/06/22 Stop Date: 09/01/23 Status: Ordered atorvastatin 40 mg oral tablet 1 tablet, By Mouth, Daily, # 90 tablet, 3 Refills, Maintenance, 09/06/22 10:56:00 EDT, [facility] #[id number], 152.4, cm, 09/06/22 10:53:00 EDT, Height Start Date: 09/06/22 Stop Date: 09/01/23 Status: Ordered Centrum Silver 1 tablet, By Mouth, Daily, 0 Refills, Maintenance, 06/12/15 17:52:27 Start Date: 06/12/15 Stop Date: 07/12/15 Status: Ordered levothyroxine 0.05 mg oral tablet 1 tablet, By Mouth, Daily, # 90 tablet, 3 Refills, Maintenance, 09/06/22 10:56:00 EDT, [facility] #[id number], 152.4, cm, 09/06/22 10:53:00 EDT, Height Start Date: 09/06/22 Stop Date: 09/01/23 Status: Ordered lisinopril 30 mg oral tablet 1 tablet = 30 mg, By Mouth, Daily, # 90 tablet, 4 Refills, Maintenance, 09/06/22 10:55:00 EDT, Tablet, [facility] #[id number], increase in dose, 152.4, cm, 09/06/22 10:53:00 EDT, Height Start Date: 09/06/22 Stop Date: 11/30/23 Status: Ordered venlafaxine 75 mg oral capsule, extended release 75 mg, 1, capsule, By Mouth, Daily, # 90 capsule, Refills 3, Tot. Refills 3, Maintenance, 07/11/22 9:39:00 EDT, Route to Pharmacy Electronically, [facility] #[id number], dose lowered back down.,152.4, cm, 07/05/22 10:56:00 [...] oldest [Reference Range]: 1 Height 152.4 cm (09/06/22 10:53 AM) Weight 56.3 kg (09/06/22 10:53 AM) Oxygen Saturation [94-100 %] 99 % (09/06/22 10:53 AM) Pulse Rate [55-90 bpm] 78 bpm (09/06/22 10:53 AM) Body Mass Index [18.5-24.99 kg/m2] 24.24 kg/m2 (09/06/22 10:53 AM) Blood Pressure [90-138/55-84 mm Hg] 138/ 74mm Hg (09/06/22 10:53 AM) Mode of Delivery (Oxygen) Room air (09/06/22 10:53 AM) Blood pressure sites Arm, left (09/06/22 10:53 AM) Social History Social History Type Response Smoking Status Never (less than 100 in lifetime) entered on: 06/27/19 Sex Note * Cyndi Sky: PERFORM, SIGN, VERIFY Event Display: Patient Education/Instruction Authored Date: [id number] [facility] Clinical Summary Name ZAYDA BARGER Age 87 Years 1935 PCP Darrick APONTE, Orlin PCP Visit Date 09/06/2022 10:40:00 Patient Instructions 1. I agree, seeing a therapist for counseling is a good idea. Will assist you in finding a new provider with a referral to Integrated behavioral Health 2. no changes to your meds, renewed several that needed refills. 3. your daily alcohol consumption is likely the cause of your elevated MCV (a blood test indicatingan increase in the size of your red blood cells.) ??I suggest you cut back on alcohol consumption 4. continue regular exercise at your facility Additional Instructions: Scheduled Appointments?? Future Appointments ?No Future Appointments Scheduled Follow-Up Instructions ?? Diagnosis Other specified diseases of blood and blood-forming organs; Alcohol abuse, uncomplicated; Hypothyroidism, unspecified; Generalized anxiety disorder; Essential (primary) hypertension Medications: Please continue your medications until treatment is completed or stopped by your provider. Discuss any questions related to medications with your provider. Medications to Continue Taking That Have Changed [facility] #[id number], [address] [place] [phone], [phone] - Atenolol (atenolol 100 mg oral tablet) 1 tab(s) Oral Daily for 90 Days. Refills: 3. Next Dose: - Atorvastatin (atorvastatin 40 mg oral tablet) 1 tab(s) Oral Daily for 90 Days. Refills: 3. Next Dose: - Levothyroxine (levothyroxine 0.05 mg oral tablet) 1 tab(s) Oral Daily for 90 Days. Refills: 3. Next Dose: Medications to Continue with No Changes [facility] #[id number], [address] [place], [place] [phone], [phone] Lisinopril (lisinopril 30 mg oral tablet) 1 tab(s) Oral Daily for 90 Days. Refills: 4. Next Dose: These medications were not printed or sent to your pharmacy Multivitamin With Minerals (Centrum Silver) 1 tab(s) Oral Daily for 30 Days. Next Dose: Venlafaxine (venlafaxine 75 mg oral capsule, extended release) 1 capsule Oral Daily for 90 Days. Refills: 3. Next Dose: Allergy Info:?? No Known Medication Allergies Medications Given This Visit Future Orders ?No future orders Vital Signs Height 152.4 cm Weight 56.3 kg BMI 24.24 kg/m2 Blood Pressure 138 mm Hg/74 mm Hg Temperature Pulse Rate 78 bpm Respiratory Rate 02 Sat Mode of Delivery 99 %/Room air You can now view a summary of your hospital visit from the comfort of your home through a free online portal called [employer]. [employer] is a website that allows you to securely view your medical information including discharge summary, medications and follow-up visits. ??You can alsosend a secure electronic message to your doctor???s office to request appointments, renew medications or just ask a question. You can enroll at [email or web address] or register during your next office [...] primary care provider, you may find a [facility] provider by calling [facility] Link at [phone]. For information about the plan of care including goals and instructions for your diagnosis, please see the patient education orders section of this document. Patient Education Materials?? The content of this educational material or handout may have been modified, supplemented, or adapted from its original content and format to support your individualized medical care. Additional Provider Instructions: 1. I agree, seeing a therapist for counseling is a good idea. Will assist you in finding a new provider with a referral to Integrated behavioral Health 2. no changes to your meds, renewed several that needed refills. 3. your daily alcohol consumption is likely the cause of your elevated MCV (a blood test indicatingan increase in the size of your red blood cells.) I suggest you cut back on alcohol consumption 4. continue regular exercise at your facility Patient Care team information Care Team Personnel Name: Orlin Hollingsworth MD Position: S Physician - Primary Care Member Role: PCP Address: Address: [address] [place] [address] Adult [place] [address]- Care Team Related Persons Name: DERRELL FLORES Name: LACY BARGER Address: [address] [address]
--- OUTSIDE RECORDS SUMMARY | 2023-12-10 21:10 | XMS_ITS | Continuity of Care Document ---
Author Organization [facility] Address [address] [place] [address]- Care Team Providers Care Warehouse And Receiving Supervisor Name Role Phone Darrick APONTE, Orlin Primary Care Physician [facility] Date[facility]): 02/25/22 - 03/27/22 [facility] [address] [place], [place] [address] Allergies, Adverse Reactions, Alerts No [...] influenza virus vaccine, inactivated 11/28/14 César rded [id number] 12y+ bivalent booster vax 12/31/21 Recorded SARS-CoV-2 [...] tablet, 2 Refills, Maintenance, 12/15/21 20:42:00 EDT, [facility] #[id number], 152.4, cm, 11/24/21 14:39:00 EDT, Height Start Date: 12/15/21 Status: Ordered atorvastatin 40 mg oral tablet 1 tablet, By Mouth, Daily, # 90 tablet, 1 Refills, Maintenance, 12/05/21 14:24:00 EDT, [facility] #[id number], 152.4, cm, 11/24/21 14:39:00 EDT, Height Start Date: 12/05/21 Status: Ordered Centrum Silver 1 tablet, By Mouth, Daily, 0 Refills, Maintenance, 06/12/15 17:52:27 Start Date: 06/12/15 Stop Date: 07/12/15 Status: Ordered levothyroxine 0.05 mg oral tablet 1 tablet, By Mouth, Daily, # 90 tablet, 1 Refills, [facility] #55061, 152.4, cm, 08/24/2213:15:00 EDT, Height Start Date: 10/17/21 Status: Ordered lisinopril 30 mg oral tablet 1 tablet = 30 mg, By Mouth, Daily, # 90 tablet, 2 Refills, Maintenance, 02/23/22 15:23:00 EST, Tablet, [facility] #[id number], increase in dose, 152.4, cm, 02/23/22 15:19:00 EST, Height Start Date: 02/23/22 Stop Date: 11/20/22 Status: Ordered traZODone 50 mg oral tablet 50 mg, 1, tablet, By Mouth, Daily at bedtime, # 30 tablet, Refills 0, Tot. Refills 0, Maintenance, 11/24/21 14:47:00 EDT, Route to Pharmacy Electronically, [facility] #[id number], Partial fill upon patient request if the prescription is for a hernandez... Start Date: 11/24/21 Stop Date: 12/24/21 Status: Ordered venlafaxine 75 mg oral capsule, extended release 1 capsule, By Mouth, Daily, # 30 capsule, 5 Refills, Maintenance, 03/23/22 13:21:00 EST, [facility] #[id number], 152.4, cm, 02/23/22 15:19:00 EST, Height Start Date: 03/23/22 Status: Ordered Problem List Condition Confirmation Course [...] Team Personnel Name: Orlin Hollingsworth MD Position: [facility] Primary Care Physician Member Role: PCP Address: Address: [address] [place] [address] Adult & [place] [address]- Care Team Related Persons Name: DERRELL FLORES Name: LACY BARGER Address: home [address] [place] [address]
--- OUTSIDE RECORDS SUMMARY | 2023-12-10 21:10 | XMS_ITS | Continuity of Care Document ---
Author Organization [facility] Address [address] [place] [address]- Care Team Providers Care Wellness Assistant Name Role Phone Orlin Hollingsworth MD Primary Care Physician [facility] Date[facility]): 06/27/19 - 07/04/19 [facility] [address] [place] [address]- [facility] Attending Physician: Orlin Hollingsworth MD Allergies, [...] 06/27/19 14:24:00 EDT, Tablet, [facility] #[id number], 152.4, cm, 05/17/19 11:32:00 EST, Height Start Date: 06/27/19 Stop Date: 06/21/20 Status: Ordered atorvastatin 40 mg oral tablet 1 tablet = 40 mg, By Mouth, Daily, # 90 tablet, 3 Refills, Maintenance, 06/27/19 14:23:00 EDT, Tablet, [facility] #[id number], 152.4, cm, 05/17/19 11:32:00 EST, Height Start Date: 06/27/19 Stop Date: 06/21/20 Status: Ordered Centrum Silver 1 tablet, By Mouth, Daily, 0 Refills, Maintenance, 06/12/15 17:52:27 Start Date: 06/12/15 Stop Date: 07/12/15 Status: Ordered levothyroxine 0.05 mg oral tablet 1 tablet = 50 mcg, By Mouth, Daily, # 90 tablet, 3 Refills, Maintenance, 06/27/19 14:24:00 EDT, Tablet, [facility] #[id number], 152.4, cm, 05/17/19 11:32:00 EST, Height Start [...]
--- OUTSIDE RECORDS SUMMARY | 2023-12-10 21:10 | XMS_ITS | Continuity of Care Document ---
Author Organization [facility] Address [address] [place] [address]- Care Team Providers Care Supervisor [employer] Name Role Phone Orlin Hollingsworth MD Primary Care Physician [facility] Date(s): 09/29/23 - 10/29/23 [facility] [address] [place], [place] [address] Allergies, Adverse Reactions, Alerts No Known Medication Allergies Immunizations Given and Recorded Vaccine Date Status Refusal Reason SARS-CoV-2(COVID-19)mRNA-LNP vac([id number]) 06/27/23 Recorded SARS-CoV-2(COVID-19)mRNA-LNP vac([id number]) 12/23/22 Recorded RSV vaccine, preF A-preF B, [...] influenza virus vaccine, inactivated 11/28/14 César rded [id number] 12y+ bivalent booster vax 09/15/22 Recorded [id number] 12y+ bivalent booster vax 12/31/21 Recorded SARS-CoV-2 [...] Maintenance,08/10/23 7:37:00 EDT, Route to Pharmacy Electronically, [facility] #[id number], Partial fill upon patient request if the prescription is for a hernandez... Start Date: 08/10/23 Stop Date: 12/08/23 Status: Ordered atenolol 100 mg oral tablet 1 tablet, By Mouth, Daily, # 90 tablet, 3 Refills, Maintenance, 10/26/23 7:16:00 EDT, [facility] #[id number], 152.4, cm, 09/28/23 15:10:00 EDT, Height, 55.1, kg, 09/28/23 15:03:00 EDT, Dry Weight Start Date: 10/26/23 Status: Ordered atorvastatin 40 mg oral tablet 1 tablet, By Mouth, Daily, # 90 tablet, 1 Refills, Maintenance, 08/07/23 14:17:00 EDT, [facility] #[id number], 152.4, cm, 03/23/23 14:42:00 EST, Height Start Date: 08/07/23 Status: Ordered busPIRone 10 mg oral tablet 20 mg, 2, tablet, By Mouth, Daily at bedtime, # 180 tablet, Refills 1, Tot. Refills 1, Maintenance,09/28/23 15:07:00 EDT, Do Not Route, Partial fill upon patient request if the prescription is for aschedule II opioid drug. Start Date: 09/28/23 Stop Date: 03/26/24 Status: Ordered busPIRone 10 mg oral tablet 20 mg, 2, tablet, By Mouth, Daily at bedtime, # 180 tablet, Refills 2, Tot. Refills 2, Maintenance,10/16/23 12:55:00 EDT, Route to Pharmacy Electronically, [facility] #[id number], Partial fill upon patient request if the prescription is for a sc... Start Date: 10/16/23 Stop Date: 07/12/24 Status: Ordered Centrum Silver 1 tablet, By Mouth, Daily, 0 Refills, Maintenance, 06/12/15 17:52:27 Start Date: 06/12/15 Stop Date: 07/12/15 Status: Ordered levothyroxine 0.05 mg oral tablet 1 tablet, By Mouth, Daily, # 90 tablet, 3 Refills, Maintenance, 09/29/23 12:10:00 EDT, [facility] #[id number], 152.4, cm, 09/28/23 15:10:00 EDT, Height, 55.1, kg, 09/28/23 15:03:00 EDT, Dry Weight Start Date: 09/29/23 Stop Date: 09/23/24 Status: Ordered lisinopril 30 mg oral tablet 1 tablet = 30 mg, By Mouth, Daily, # 90 tablet, 4 Refills, Maintenance, 09/29/23 12:10:00 EDT, Tablet, [facility] #[id number], increase in dose, 152.4, cm, 09/28/23 15:10:00 EDT, Height, 55.1, kg, 09/28/23 15:03:00 EDT, Dry Weight Start Date: 09/29/23 Stop Date: 12/22/24 Status: Ordered venlafaxine 75 mg oral capsule, extended release 75 mg, 1, capsule, By Mouth, Daily, # 90 capsule, Refills 1, Tot. Refills 1, Maintenance, 07/26/23 11:09:00 EDT, Route to Pharmacy Electronically, [facility] #[id number], dose lowered back down., 152.4, cm, 03/23/23 [...] Team Personnel Name: Orlin Hollingsworth MD Position: [facility] Physician - Primary Care Member Role: PCP Address: Address: [address] [place] [address] Adult [place] [address]- Care Team Related Persons Name: DERRELL FLORES Name: LACY BARGER Address: home [address] [place] [address]
--- OUTSIDE RECORDS SUMMARY | 2023-12-10 21:10 | XMS_ITS | Continuity of Care Document ---
Author Organization [facility] Address [address] [place] [address]- Care Team Providers Care Flatwork Assembler Name Role Phone Orlin Hollingsworth MD Primary Care Physician [facility] Date[facility]s): 10/16/23 - 11/15/23 [facility] [address] [place], [place] [address] Allergies, Adverse Reactions, Alerts No Known Medication Allergies Immunizations Given and Recorded Vaccine Date Status Refusal Reason SARS-CoV-2(COVID-19)mRNA-LNP vac([id number]) 06/27/23 Recorded SARS-CoV-2(COVID-19)mRNA-LNP vac([id number]) 12/23/22 Recorded RSV vaccine, preF A-preF B, [...] influenza virus vaccine, inactivated 11/28/14 César rded [id number] 12y+ bivalent booster vax 09/15/22 Recorded [id number] 12y+ bivalent booster vax 12/31/21 Recorded SARS-CoV-2 [...] Maintenance,08/10/23 7:37:00 EDT, Route to Pharmacy Electronically, [facility] #[id number], Partial fill upon patient request if the prescription is for a hernandez... Start Date: 08/10/23 Stop Date: 12/08/23 Status: Ordered atenolol 100 mg oral tablet 1 tablet, By Mouth, Daily, # 90 tablet, 3 Refills, Maintenance, 10/26/23 7:16:00 EDT, [facility] #[id number], 152.4, cm, 09/28/23 15:10:00 EDT, Height, 55.1, kg, 09/28/23 15:03:00 EDT, Dry Weight Start Date: 10/26/23 Status: Ordered atorvastatin 40 mg oral tablet 1 tablet, By Mouth, Daily, # 90 tablet, 1 Refills, Maintenance, 08/07/23 14:17:00 EDT, [facility] #[id number], 152.4, cm, 03/23/23 14:42:00 EST, Height Start [...] Maintenance,10/16/23 12:55:00 EDT, Route to Pharmacy Electronically, [facility] #[id number], Partial fill upon patient request if the prescription is for a sc... Start Date: 10/16/23 Stop Date: 07/12/24 Status: Ordered Centrum Silver 1 tablet, By Mouth, Daily, 0 Refills, Maintenance, 06/12/15 17:52:27 Start Date: 06/12/15 Stop Date: 07/12/15 Status: Ordered levothyroxine 0.05 mg oral tablet 1 tablet, By Mouth, Daily, # 90 tablet, 3 Refills, Maintenance, 09/29/23 12:10:00 EDT, [facility] #[id number], 152.4, cm, 09/28/23 15:10:00 EDT, Height, 55.1, kg, 09/28/23 15:03:00 EDT, Dry Weight Start Date: 09/29/23 Stop Date: 09/23/24 Status: Ordered lisinopril 30 mg oral tablet 1 tablet = 30 mg, By Mouth, Daily, # 90 tablet, 4 Refills, Maintenance, 09/29/23 12:10:00 EDT, Tablet, [facility] #[id number], increase in dose, 152.4, cm, 09/28/23 15:10:00 EDT, Height, 55.1, kg, 09/28/23 15:03:00 EDT, Dry Weight Start Date: 09/29/23 Stop Date: 12/22/24 Status: Ordered venlafaxine 75 mg oral capsule, extended release 75 mg, 1, capsule, By Mouth, Daily, # 90 capsule, Refills 1, Tot. Refills 1, Maintenance, 07/26/23 11:09:00 EDT, Route to Pharmacy Electronically, [facility] #[id number], dose lowered back down., 152.4, cm, 03/23/23 [...] Team Personnel Name: Orlin Hollingsworth MD Position: [facility] Physician - Primary Care Member Role: PCP Address: Address: [address] [place] [address] Adult [place] [address]- Care Team Related Persons Name: DERRELL FLORES Name: LACY BARGER Address: home [address] [place] [address]
--- OUTSIDE RECORDS SUMMARY | 2023-12-10 21:10 | XMS_ITS | Continuity of Care Document ---
Author Organization [facility] Address [address] [place] [address]- Care Team Providers Care Head Of Measurement & Insights Name Role Phone Orlin Hollingsworth MD Primary Care Physician Encounter [facility] Date(s): 07/26/23 - 08/25/23 [facility] [address] [place], [place] [address] Allergies, Adverse Reactions, Alerts No Known [...] virus vaccine, inactivated 11/28/14 César rded SARS-CoV-2(COVID-19)mRNA-LNP vac([id number]) 12/23/22 Recorded [id number] 12y+ bivalent booster vax 09/15/22 Recorded [id number] 12y+ bivalent booster vax 12/31/21 Recorded SARS-CoV-2 [...] Maintenance,08/10/23 7:37:00 EDT, Route to Pharmacy Electronically, [email or web address] #[id number], Partial fill upon patient request if the prescription is for a hernandez... Start Date: 08/10/23 Stop Date: 12/08/23 Status: Ordered atenolol 100 mg oral tablet 1 tablet, By Mouth, Daily, # 90 tablet, 3 Refills, Maintenance, 09/06/22 10:55:00 EDT, [email or web address] #[id number], 152.4, cm, 09/06/22 10:53:00 EDT, Height Start Date: 09/06/22 Stop Date: 09/01/23 Status: Ordered atorvastatin 40 mg oral tablet 1 tablet, By Mouth, Daily, # 90 tablet, 1 Refills, Maintenance, 08/07/23 14:17:00 EDT, [email or web address] #[id number], 152.4, cm, 03/23/23 14:42:00 EST, Height Start Date: 08/07/23 Status: Ordered busPIRone 10 mg oral tablet 10 mg, 1, tablet, By Mouth, Daily at bedtime, # 90 tablet, Refills 1, Tot. Refills 1, Maintenance, 08/15/23 15:55:00 EDT, Route to Pharmacy Electronically, [email or web address] #[id number], Partial fill upon patient request if the prescription is for a hernandez... Start Date: 08/15/23 Stop Date: 02/11/24 Status: Ordered Centrum Silver 1 tablet, By Mouth, Daily, 0 Refills, Maintenance, 06/12/15 17:52:27 Start Date: 06/12/15 Stop Date: 07/12/15 Status: Ordered levothyroxine 0.05 mg oral tablet 1 tablet, By Mouth, Daily, # 90 tablet, 3 Refills, Maintenance, 09/06/22 10:56:00 EDT, [email or web address] #[id number], 152.4, cm, 09/06/22 10:53:00 EDT, Height Start Date: 09/06/22 Stop Date: 09/01/23 Status: Ordered lisinopril 30 mg oral tablet 1 tablet = 30 mg, By Mouth, Daily, # 90 tablet, 4 Refills, Maintenance, 09/06/22 10:55:00 EDT, Tablet, [email or web address] #[id number], increase in dose, 152.4, cm, 09/06/22 10:53:00 EDT, Height Start Date: 09/06/22 Stop Date: 11/30/23 Status: Ordered venlafaxine 75 mg oral capsule, extended release 75 mg, 1, capsule, By Mouth, Daily, # 90 capsule, Refills 1, Tot. Refills 1, Maintenance, 07/26/23 11:09:00 EDT, Route to Pharmacy Electronically, [email or web address] #[id number], dose lowered back down., 152.4, cm, 03/23/23 [...] Primary Care Member Role: PCP Address: Address: [address] [place] [address] Adult & [place] [address]- Care Team Related Persons Name: DERRELL FLORES Name: LACY BARGER Address: [address] [address]
--- OUTSIDE RECORDS SUMMARY | 2023-12-10 21:10 | XMS_ITS | Continuity of Care Document ---
Author Organization [facility] Address [address] [place] [address]- Care Team Providers Care Mortgage Operations Manager Name Role Phone Orlin Hollingsworth MD Primary Care Physician [facility] Date(s): 12/21/20 - 01/20/21 [facility] [address] [place] [address]- Allergies, Adverse Reactions, Alerts No Known Medication [...] 1 Refills, Maintenance, 08/04/20 10:17:00 EDT, Tablet, [facility] #[id number], 152.4, cm, 05/17/19 11:32:00 EST, Height Start Date: 08/04/20 Stop Date: 01/31/21 Status: Ordered atorvastatin 40 mg oral tablet 1 tablet, By Mouth, Daily, Duplicate from 08/03/20, # 90 tablet, 2 Refills, Maintenance, 08/05/20 10:05:00 EDT, [facility] #[id number], 152.4, cm, 05/17/19 11:32:00 EST, Height Start Date: 08/05/20 Status: Ordered Centrum Silver 1 tablet, By Mouth, Daily, 0 Refills, Maintenance, 06/12/15 17:52:27 Start Date: 06/12/15 Stop Date: 07/12/15 Status: Ordered levothyroxine 0.05 mg oral tablet 1 tablet, By Mouth, Daily, # 90 tablet, 1 Refills, Maintenance, 10/19/20 10:07:00 EDT, [facility] #[id number], 152.4, cm, 10/09/20 9:56:00 EDT, Height Start Date: 10/19/20 Status: Ordered lisinopril 10 mg oral tablet 10 mg, 1, tablet, By Mouth, Daily in AM, # 90 tablet, Refills 3, Tot. Refills 3, Maintenance, 12/25/20 11:05:00 EDT, Route to Pharmacy Electronically, [facility] #[id number], Partial fill upon patient request if the prescription is for a schedule... Start Date: 12/25/20 Stop Date: 12/20/21 Status: Ordered sertraline 100 mg oral tablet 1.5 tablet = 150 mg, By Mouth, Daily, # 135 tablet, 3 Refills, Maintenance, 12/25/20 11:02:00 EDT, Tablet, [facility] #[id number], increase in dose, 152.4, cm, 12/25/20 10:52:00 [...]
--- OUTSIDE RECORDS SUMMARY | 2023-12-10 21:10 | XMS_ITS | Continuity of Care Document ---
Author Organization [facility] Address [address] [place] [address]- Care Team Providers Care Technology Applications Teacher Name Role Phone Darrick APONTE, Orlin Primary Care Physician [facility] Date[facility]s): 07/09/20 - 08/08/20 [facility] [address] [place], [place] [address] Allergies, Adverse Reactions, Alerts No Known Medication Allergies Immunizations Given and Recorded Vaccine Date Status Refusal Reason SARS-CoV-2 (COVID-19) mRNA BNT-162b2 vac 03/24/20 Recorded SARS-CoV-2 (COVID-19) mRNA BNT-162h4 vac 04/21/18 Recorded influenza virus vaccine, inactivated [...] 1 Refills, Maintenance, 08/04/20 10:17:00 EDT, Tablet, [facility] #[id number], 152.4, cm, 05/17/19 11:32:00 EST, Height Start Date: 08/04/20 Stop Date: 01/31/21 Status: Ordered atorvastatin 40 mg oral tablet 1 tablet, By Mouth, Daily, Duplicate from 08/03/20, # 90 tablet, 2 Refills, Maintenance, 08/05/20 10:05:00 EDT, [facility] #[id number], 152.4, cm, 05/17/19 11:32:00 EST, Height Start Date: 08/05/20 Status: Ordered Centrum Silver 1 tablet, By Mouth, Daily, 0 Refills, Maintenance, 06/12/15 17:52:27 Start Date: 06/12/15 Stop Date: 07/12/15 Status: Ordered levothyroxine 0.05 mg oral tablet 1 tablet, By Mouth, Daily, # 90 tablet, 1 Refills, Maintenance, 07/17/20 17:41:00 EDT, [facility] #[id number], 152.4, cm, 05/17/19 11:32:00 EST, Height Start Date: 07/17/20 Status: Ordered Problem List Condition Effective Dates [...]
--- OUTSIDE RECORDS SUMMARY | 2023-12-10 21:11 | XMS_ITS | Continuity of Care Document ---
Author Organization [facility] Address [address] [place] [address]- Care Team Providers Care Anthropology Department Chair Name Role Phone Darrick APONTE, Orlin Primary Care Physician [facility] Date[facility]s): 08/12/20 - 09/11/20 [facility] [address] [place], [place] [address] Allergies, Adverse Reactions, Alerts No Known Medication Allergies Immunizations Given and Recorded Vaccine Date Status Refusal Reason SARS-CoV-2 (COVID-19) mRNA BNT-162b2 vac 03/24/20 Recorded SARS-CoV-2 (COVID-19) mRNA BNT-162x1 vac 04/21/18 Recorded influenza virus vaccine, inactivated [...] 1 Refills, Maintenance, 08/04/20 10:17:00 EDT, Tablet, [facility] #[id number], 152.4, cm, 05/17/19 11:32:00 EST, Height Start Date: 08/04/20 Stop Date: 01/31/21 Status: Ordered atorvastatin 40 mg oral tablet 1 tablet, By Mouth, Daily, Duplicate from 08/03/20, # 90 tablet, 2 Refills, Maintenance, 08/05/20 10:05:00 EDT, [facility] #[id number], 152.4, cm, 05/17/19 11:32:00 EST, Height Start Date: 08/05/20 Status: Ordered Centrum Silver 1 tablet, By Mouth, Daily, 0 Refills, Maintenance, 06/12/15 17:52:27 Start Date: 06/12/15 Stop Date: 07/12/15 Status: Ordered levothyroxine 0.05 mg oral tablet 1 tablet, By Mouth, Daily, # 90 tablet, 1 Refills, Maintenance, 07/17/20 17:41:00 EDT, [facility] #[id number], 152.4, cm, 05/17/19 11:32:00 EST, Height Start Date: 07/17/20 Status: Ordered sertraline 50 mg oral tablet 1 tablet = 50 mg, By Mouth, Daily, # 30 tablet, 5 Refills, Maintenance, 09/04/20 11:29:00 EDT, Tablet, [facility] #[id number], increase in dose, 152.4, cm, 05/17/19 11:32:00 EST, Height Start Date: 09/04/20 Stop Date: 03/03/21 Status: Ordered traZODone 50 mg oral tablet 50 mg, 1, tablet, By Mouth, Daily at bedtime, # 30 tablet, Refills 3, Tot. Refills 3, Maintenance, 09/04/20 11:34:00 EDT, Route to Pharmacy Electronically, [facility] #[id number], Partial fill upon patient request if the [...]
--- OUTSIDE RECORDS SUMMARY | 2023-12-10 21:11 | XMS_ITS | Continuity of Care Document ---
Author Organization [facility] Address [address] [place] [address]- Care Team Providers Care Spray Dry Operator Name Role Phone Orlin Hollingsworth MD Primary Care Physician [facility] Date(s): 10/24/23 - 11/23/23 [facility] [address] [place], [place] [address] Allergies, Adverse Reactions, Alerts No Known Medication Allergies Immunizations Given and Recorded Vaccine Date Status Refusal Reason SARS-CoV-2(COVID-19)mRNA-LNP vac([id number]) 06/27/23 Recorded SARS-CoV-2(COVID-19)mRNA-LNP vac([id number]) 12/23/22 Recorded RSV vaccine, preF A-preF B, [...] influenza virus vaccine, inactivated 11/28/14 César rded [id number] 12y+ bivalent booster vax 09/15/22 Recorded [id number] 12y+ bivalent booster vax 12/31/21 Recorded SARS-CoV-2 [...] Maintenance,08/10/23 7:37:00 EDT, Route to Pharmacy Electronically, [facility] #[id number], Partial fill upon patient request if the prescription is for a hernandez... Start Date: 08/10/23 Stop Date: 12/08/23 Status: Ordered atenolol 100 mg oral tablet 1 tablet, By Mouth, Daily, # 90 tablet, 3 Refills, Maintenance, 10/26/23 7:16:00 EDT, [facility] #[id number], 152.4, cm, 09/28/23 15:10:00 EDT, Height, 55.1, kg, 09/28/23 15:03:00 EDT, Dry Weight Start Date: 10/26/23 Status: Ordered atorvastatin 40 mg oral tablet 1 tablet, By Mouth, Daily, # 90 tablet, 1 Refills, Maintenance, 08/07/23 14:17:00 EDT, [facility] #[id number], 152.4, cm, 03/23/23 14:42:00 EST, Height Start [...] Maintenance,10/16/23 12:55:00 EDT, Route to Pharmacy Electronically, [facility] #[id number], Partial fill upon patient request if the prescription is for a sc... Start Date: 10/16/23 Stop Date: 07/12/24 Status: Ordered Centrum Silver 1 tablet, By Mouth, Daily, 0 Refills, Maintenance, 06/12/15 17:52:27 Start Date: 06/12/15 Stop Date: 07/12/15 Status: Ordered levothyroxine 0.05 mg oral tablet 1 tablet, By Mouth, Daily, # 90 tablet, 3 Refills, Maintenance, 09/29/23 12:10:00 EDT, [facility] #[id number], 152.4, cm, 09/28/23 15:10:00 EDT, Height, 55.1, kg, 09/28/23 15:03:00 EDT, Dry Weight Start Date: 09/29/23 Stop Date: 09/23/24 Status: Ordered lisinopril 30 mg oral tablet 1 tablet = 30 mg, By Mouth, Daily, # 90 tablet, 4 Refills, Maintenance, 09/29/23 12:10:00 EDT, Tablet, [facility] #[id number], increase in dose, 152.4, cm, 09/28/23 15:10:00 EDT, Height, 55.1, kg, 09/28/23 15:03:00 EDT, Dry Weight Start Date: 09/29/23 Stop Date: 12/22/24 Status: Ordered venlafaxine 75 mg oral capsule, extended release 75 mg, 1, capsule, By Mouth, Daily, # 90 capsule, Refills 1, Tot. Refills 1, Maintenance, 07/26/23 11:09:00 EDT, Route to Pharmacy Electronically, [email or web address] #[id number], dose lowered back down., 152.4, cm, 03/23/23 [...] Team Personnel Name: Orlin Hollingsworth MD Position: [facility] Physician - Primary Care Member Role: PCP Address: Address: [address] [place] [address] Adult & [place] [address]- Care Team Related Persons Name: DERRELL FLORES Name: LACY BARGER Address: home [address] [place] [address]
--- OUTSIDE RECORDS SUMMARY | 2023-12-10 21:11 | XMS_ITS | Continuity of Care Document ---
Author Organization [facility] Address [address] [place] [address]- Care Team Providers Care Machine I Coremaker Name Role Phone Darrick APONTE, Orlin Primary Care Physician [facility] Date(s): 03/16/20 - 04/15/20 [facility] [address] [place], [place] [address] Allergies, Adverse Reactions, Alerts No [...] 3 Refills, Maintenance, 06/27/19 14:24:00 EDT, Tablet, [facility] #[id number], 152.4, cm, 05/17/19 11:32:00 EST, Height Start Date: 06/27/19 Stop Date: 06/21/20 Status: Ordered atorvastatin 40 mg oral tablet 1 tablet = 40 mg, By Mouth, Daily, # 90 tablet, 3 Refills, Maintenance, 06/27/19 14:23:00 EDT, Tablet, [facility] #[id number], 152.4, cm, 05/17/19 11:32:00 EST, Height Start Date: 06/27/19 Stop Date: 06/21/20 Status: Ordered Centrum Silver 1 tablet, By Mouth, Daily, 0 Refills, Maintenance, 06/12/15 17:52:27 Start Date: 06/12/15 Stop Date: 07/12/15 Status: Ordered levothyroxine 0.05 mg oral tablet 1 tablet = 50 mcg, By Mouth, Daily, # 90 tablet, 3 Refills, Maintenance, 06/27/19 14:24:00 EDT, Tablet, [facility] #[id number], 152.4, cm, 05/17/19 11:32:00 EST, Height Start [...]
--- OUTSIDE RECORDS SUMMARY | 2023-12-10 21:11 | XMS_ITS | Continuity of Care Document ---
Author Organization [facility] Address [address] [place] [address]- Care Team Providers Care Yard Clerk Name Role Phone Darrick APONTE, Orlin Primary Care Physician Encounter [facility] Date(s): 08/10/20 - 08/17/20 [facility] [address] [place] [address]- Encounter Diagnosis Anxiety(Discharge Diagnosis) - 08/10/20 Depression(Discharge Diagnosis) - 08/10/20 Grief reaction(Discharge Diagnosis) - 08/10/20 Attending Physician: Santa Dean MD Allergies, Adverse Reactions, Alerts No Known [...] 1 Refills, Maintenance, 08/04/20 10:17:00 EDT, Tablet, [facility] #[id number], 152.4, cm, 05/17/19 11:32:00 EST, Height Start Date: 08/04/20 Stop Date: 01/31/21 Status: Ordered atorvastatin 40 mg oral tablet 1 tablet, By Mouth, Daily, Duplicate from 08/03/20, # 90 tablet, 2 Refills, Maintenance, 08/05/20 10:05:00 EDT, [facility] #[id number], 152.4, cm, 05/17/19 11:32:00 EST, Height Start Date: 08/05/20 Status: Ordered Centrum Silver 1 tablet, By Mouth, Daily, 0 Refills, Maintenance, 06/12/15 17:52:27 Start Date: 06/12/15 Stop Date: 07/12/15 Status: Ordered levothyroxine 0.05 mg oral tablet 1 tablet, By Mouth, Daily, # 90 tablet, 1 Refills, Maintenance, 07/17/20 17:41:00 EDT, [facility] #[id number], 152.4, cm, 05/17/19 11:32:00 EST, Height Start Date: 07/17/20 Status: Ordered sertraline 25 mg oral tablet 1 tablet = 25 mg, By Mouth, Daily, # 30 tablet, 1 Refills, Maintenance, 08/10/20 14:43:00 EDT, Tablet, [facility] #[id number], 152.4, cm, 05/17/19 11:32:00 EST, Height Start Date: 08/10/20 Status: Ordered Problem List Condition Effective Dates [...] Dates Health Status Cl inical Service Informant Anxiety Discharge Diagnosis 08/10/20 Depression Discharge Diagnosis 08/10/20 Grief reaction Discharge Diagnosis 08/10/20 Social History Social History Type Response Smoking Status Never (less than 100 in lifetime) entered on: 06/27/19 Sex
--- OUTSIDE RECORDS SUMMARY | 2023-12-10 21:11 | XMS_ITS | Continuity of Care Document ---
Author Organization [facility] Address [address] [place] [address]- Care Team Providers Care Cardiac Monitor Technician Name Role Phone Orlin Hollingsworth MD Primary Care Physician [facility] Date(s): 03/23/22 - 04/22/22 [facility] [address] [place], [place] [address] Allergies, Adverse Reactions, Alerts No [...] influenza virus vaccine, inactivated 11/28/14 César rded [id number] 12y+ bivalent booster vax 12/31/21 Recorded SARS-CoV-2 [...] tablet, 2 Refills, Maintenance, 12/15/21 20:42:00 EDT, [facility] #[id number], 152.4, cm, 11/24/21 14:39:00 EDT, Height Start Date: 12/15/21 Status: Ordered atorvastatin 40 mg oral tablet 1 tablet, By Mouth, Daily, # 90 tablet, 1 Refills, Maintenance, 12/05/21 14:24:00 EDT, [facility] #[id number], 152.4, cm, 11/24/21 14:39:00 EDT, Height Start Date: 12/05/21 Status: Ordered Centrum Silver 1 tablet, By Mouth, Daily, 0 Refills, Maintenance, 06/12/15 17:52:27 Start Date: 06/12/15 Stop Date: 07/12/15 Status: Ordered levothyroxine 0.05 mg oral tablet 1 tablet, By Mouth, Daily, # 90 tablet, 1 Refills, [facility] #[id number], 152.4, cm, 08/24/2213:15:00 EDT, Height Start Date: 10/17/21 Status: Ordered lisinopril 30 mg oral tablet 1 tablet = 30 mg, By Mouth, Daily, # 90 tablet, 2 Refills, Maintenance, 02/23/22 15:23:00 EST, Tablet, [facility] #[id number], increase in dose, 152.4, cm, 02/23/22 15:19:00 EST, Height Start Date: 02/23/22 Stop Date: 11/20/22 Status: Ordered traZODone 50 mg oral tablet 50 mg, 1, tablet, By Mouth, Daily at bedtime, # 30 tablet, Refills 0, Tot. Refills 0, Maintenance, 11/24/21 14:47:00 EDT, Route to Pharmacy Electronically, [facility] #[id number], Partial fill upon patient request if the prescription is for a hernandez... Start Date: 11/24/21 Stop Date: 12/24/21 Status: Ordered venlafaxine 75 mg oral capsule, extended release 1 capsule, By Mouth, Daily, # 30 capsule, 5 Refills, Maintenance, 03/23/22 13:21:00 EST, [facility] #[id number], 152.4, cm, 02/23/22 15:19:00 EST, Height Start [...] Personnel Name: Orlin Hollingsworth MD Position: S Primary Care Physician Member Role: PCP Address: Address: [address] [place] [address] Adult & [place] [address]- Care Team Related Persons Name: DERRELL FLORES Name: LACY BARGER Address: home [address] [place] [id number]
--- OUTSIDE RECORDS SUMMARY | 2023-12-10 21:11 | XMS_ITS | Continuity of Care Document ---
Author Organization [facility] Address [address] [place] [address]- Care Team Providers Care Kitchen And Counter Worker Name Role Phone Orlin Hollingsworth MD Primary Care Physician [facility] Date(s): 10/24/19 - 10/31/19 [facility] [address] [place] [address]- [facility] Attending Physician: Orlin Hollingsworth MD Allergies, [...] 3 Refills, Maintenance, 06/27/19 14:24:00 EDT, Tablet, [facility] #[id number], 152.4, cm, 05/17/19 11:32:00 EST, Height Start Date: 06/27/19 Stop Date: 06/21/20 Status: Ordered atorvastatin 40 mg oral tablet 1 tablet = 40 mg, By Mouth, Daily, # 90 tablet, 3 Refills, Maintenance, 06/27/19 14:23:00 EDT, Tablet, [facility] #[id number], 152.4, cm, 05/17/19 11:32:00 EST, Height Start Date: 06/27/19 Stop Date: 06/21/20 Status: Ordered Centrum Silver 1 tablet, By Mouth, Daily, 0 Refills, Maintenance, 06/12/15 17:52:27 Start Date: 06/12/15 Stop Date: 07/12/15 Status: Ordered levothyroxine 0.05 mg oral tablet 1 tablet = 50 mcg, By Mouth, Daily, # 90 tablet, 3 Refills, Maintenance, 06/27/19 14:24:00 EDT, Tablet, [facility] #[id number], 152.4, cm, 05/17/19 11:32:00 EST, Height Start Date: 06/27/19 Stop Date: 06/21/20 Status: Ordered olanzapine 2.5 mg oral tablet 1.25 mg, 0.5, tablet, By Mouth, Daily at bedtime, # 15 tablet, Refills 0, Tot. Refills 0, Maintenance, 10/24/19 13:13:00 EDT, Route to Pharmacy Electronically, [facility] #[id number], 152.4, cm,05/17/19 11:32:00 EST, Height Start Date: [...]
--- OUTSIDE RECORDS SUMMARY | 2023-12-10 21:11 | XMS_ITS | Continuity of Care Document ---
Author Organization [facility] Address [address] [place] [address]- Care Team Providers Care Steamer Tender Name Role Phone Orlin Hollingsworth MD Primary Care Physician [facility] Date[facility]): 08/08/23 - 09/07/23 [facility] [address] [place], [place] [address] Allergies, Adverse Reactions, Alerts No [...] virus vaccine, inactivated 11/28/14 César rded SARS-CoV-2(COVID-19)mRNA-LNP vac(fen342) 12/23/22 Recorded [id number] 12y+ bivalent booster vax 09/15/22 Recorded [id number] 12y+ bivalent booster vax 12/31/21 Recorded SARS-CoV-2 [...] Maintenance,08/10/23 7:37:00 EDT, Route to Pharmacy Electronically, [email or web address] #[id number], Partial fill upon patient request if the prescription is for a hernandez... Start Date: 08/10/23 Stop Date: 12/08/23 Status: Ordered atenolol 100 mg oral tablet 1 tablet, By Mouth, Daily, # 90 tablet, 3 Refills, Maintenance, 09/06/22 10:55:00 EDT, [email or web address] #[id number], 152.4, cm, 09/06/22 10:53:00 EDT, Height Start Date: 09/06/22 Stop Date: 09/01/23 Status: Ordered atorvastatin 40 mg oral tablet 1 tablet, By Mouth, Daily, # 90 tablet, 1 Refills, Maintenance, 08/07/23 14:17:00 EDT, [email or web address] #[id number], 152.4, cm, 03/23/23 14:42:00 EST, Height Start Date: 08/07/23 Status: Ordered busPIRone 10 mg oral tablet 10 mg, 1, tablet, By Mouth, Daily at bedtime, # 90 tablet, Refills 1, Tot. Refills 1, Maintenance, 08/15/23 15:55:00 EDT, Route to Pharmacy Electronically, [email or web address] #[id number], Partial fill upon patient request if the prescription is for a hernandez... Start Date: 08/15/23 Stop Date: 02/11/24 Status: Ordered Centrum Silver 1 tablet, By Mouth, Daily, 0 Refills, Maintenance, 06/12/15 17:52:27 Start Date: 06/12/15 Stop Date: 07/12/15 Status: Ordered levothyroxine 0.05 mg oral tablet 1 tablet, By Mouth, Daily, # 90 tablet, 3 Refills, Maintenance, 09/06/22 10:56:00 EDT, [email or web address] #[id number], 152.4, cm, 09/06/22 10:53:00 EDT, Height Start Date: 09/06/22 Stop Date: 09/01/23 Status: Ordered lisinopril 30 mg oral tablet 1 tablet = 30 mg, By Mouth, Daily, # 90 tablet, 4 Refills, Maintenance, 09/06/22 10:55:00 EDT, Tablet, [email or web address] #[id number], increase in dose, 152.4, cm, 09/06/22 10:53:00 EDT, Height Start Date: 09/06/22 Stop Date: 11/30/23 Status: Ordered venlafaxine 75 mg oral capsule, extended release 75 mg, 1, capsule, By Mouth, Daily, # 90 capsule, Refills 1, Tot. Refills 1, Maintenance, 07/26/23 11:09:00 EDT, Route to Pharmacy Electronically, [email or web address] #[id number], dose lowered back down., 152.4, cm, 03/23/23 [...] Primary Care Member Role: PCP Address: Address: [address] [place] [address] Adult [facility] [place] [address]- Care Team Related Persons Name: DERRELL FLORES Name: LACY BARGER Address: [address] [address]
--- OUTSIDE RECORDS SUMMARY | 2023-12-10 21:11 | XMS_ITS | Continuity of Care Document ---
Author Organization [facility] Address [address] [place] [address]- Care Team Providers Care Special Assets Officer Name Role Phone Darrick APONTE, Orlin Primary Care Physician [facility]s): 10/28/19 - 11/27/19 [facility] [address] [place] [address]- [facility] Allergies, Adverse Reactions, Alerts No Known Medication [...] 3 Refills, Maintenance, 06/27/19 14:24:00 EDT, Tablet, [facility] #[id number], 152.4, cm, 05/17/19 11:32:00 EST, Height Start Date: 06/27/19 Stop Date: 06/21/20 Status: Ordered atorvastatin 40 mg oral tablet 1 tablet = 40 mg, By Mouth, Daily, # 90 tablet, 3 Refills, Maintenance, 06/27/19 14:23:00 EDT, Tablet, [facility] #[id number], 152.4, cm, 05/17/19 11:32:00 EST, Height Start Date: 06/27/19 Stop Date: 06/21/20 Status: Ordered Centrum Silver 1 tablet, By Mouth, Daily, 0 Refills, Maintenance, 06/12/15 17:52:27 Start Date: 06/12/15 Stop Date: 07/12/15 Status: Ordered levothyroxine 0.05 mg oral tablet 1 tablet = 50 mcg, By Mouth, Daily, # 90 tablet, 3 Refills, Maintenance, 06/27/19 14:24:00 EDT, Tablet, [facility] #[id number], 152.4, cm, 05/17/19 11:32:00 EST, Height Start Date: 06/27/19 Stop Date: 06/21/20 Status: Ordered olanzapine 2.5 mg oral tablet 1.25 mg, 0.5, tablet, By Mouth, Daily at bedtime, # 15 tablet, Refills 0, Tot. Refills 0, Maintenance, 10/24/19 13:13:00 EDT, Route to Pharmacy Electronically, [facility] #[id number], 152.4, cm,05/17/19 11:32:00 EST, Height Start Date: [...]
--- OUTSIDE RECORDS SUMMARY | 2023-12-10 21:11 | XMS_ITS | Continuity of Care Document ---
Author Organization [facility] Address [address] [place] [address]- Care Team Providers Care Stamp Press Operator Name Role Phone Orlin Hollingsworth MD Primary Care Physician [facility] Date[facility]s): 08/08/23 - 09/07/23 [facility] [address] [place], [place] [address] Allergies, Adverse Reactions, Alerts No Known [...] virus vaccine, inactivated 11/28/14 César rded SARS-CoV-2(COVID-19)mRNA-LNP vac([id number]) 12/23/22 Recorded [id number] 12y+ bivalent booster vax 09/15/22 Recorded [id number] 12y+ bivalent booster vax 12/31/21 Recorded SARS-CoV-2 [...] Maintenance,08/10/23 7:37:00 EDT, Route to Pharmacy Electronically, [facility] #[id number], Partial fill upon patient request if the prescription is for a hernandez... Start Date: 08/10/23 Stop Date: 12/08/23 Status: Ordered atenolol 100 mg oral tablet 1 tablet, By Mouth, Daily, # 90 tablet, 3 Refills, Maintenance, 09/06/22 10:55:00 EDT, [facility] #[id number], 152.4, cm, 09/06/22 10:53:00 EDT, Height Start Date: 09/06/22 Stop Date: 09/01/23 Status: Ordered atorvastatin 40 mg oral tablet 1 tablet, By Mouth, Daily, # 90 tablet, 1 Refills, Maintenance, 08/07/23 14:17:00 EDT, [facility] #[id number], 152.4, cm, 03/23/23 14:42:00 EST, Height Start Date: 08/07/23 Status: Ordered busPIRone 10 mg oral tablet 10 mg, 1, tablet, By Mouth, Daily at bedtime, # 90 tablet, Refills 1, Tot. Refills 1, Maintenance, 08/15/23 15:55:00 EDT, Route to Pharmacy Electronically, [facility] #[id number], Partial fill upon patient request if the prescription is for a hernandez... Start Date: 08/15/23 Stop Date: 02/11/24 Status: Ordered Centrum Silver 1 tablet, By Mouth, Daily, 0 Refills, Maintenance, 06/12/15 17:52:27 Start Date: 06/12/15 Stop Date: 07/12/15 Status: Ordered levothyroxine 0.05 mg oral tablet 1 tablet, By Mouth, Daily, # 90 tablet, 3 Refills, Maintenance, 09/06/22 10:56:00 EDT, [facility] #[id number], 152.4, cm, 09/06/22 10:53:00 EDT, Height Start Date: 09/06/22 Stop Date: 09/01/23 Status: Ordered lisinopril 30 mg oral tablet 1 tablet = 30 mg, By Mouth, Daily, # 90 tablet, 4 Refills, Maintenance, 09/06/22 10:55:00 EDT, Tablet, [facility] #[id number], increase in dose, 152.4, cm, 09/06/22 10:53:00 EDT, Height Start Date: 09/06/22 Stop Date: 11/30/23 Status: Ordered venlafaxine 75 mg oral capsule, extended release 75 mg, 1, capsule, By Mouth, Daily, # 90 capsule, Refills 1, Tot. Refills 1, Maintenance, 07/26/23 11:09:00 EDT, Route to Pharmacy Electronically, [facility] #[id number], dose lowered back down., 152.4, cm, 03/23/23 [...] Team Personnel Name: Orlin Hollingsworth MD Position: [facility] Physician - Primary Care Member Role: PCP Address: Address: [address] [place] [address] Adult & [place] [address]- Care Team Related Persons Name: DERRELL FLORES Name: LACY BARGER Address: [address] [address]
--- OUTSIDE RECORDS SUMMARY | 2023-12-10 21:11 | XMS_ITS | Continuity of Care Document ---
Author Organization [facility] Address [address] [place] [address]- Care Team Providers Care Lockstitch Back Maker Name Role Phone Orlin Hollingsworth MD Primary Care Physician Encounter [facility] [place] [place] Date(s): 07/05/22 - 07/12/22 [facility] [address] [place], [place] [address] Attending Physician: Orlin Hollingsworth MD [...] influenza virus vaccine, inactivated 11/28/14 César rded [id number] 12y+ bivalent booster vax 12/31/21 Recorded SARS-CoV-2 (COVID-19) mRNA BNT-162b2 vac 12/21/20 Recorded SARS-CoV-2 (COVID-19) mRNA BNT-162b2 vac 05/14/20 Recorded SARS-CoV-2 (COVID-19) mRNA BNT-162b2 vac 04/23/20 Recorded SARS-CoV-2 (COVID-19) mRNA BNT-162b2 vac 03/24/20 Recorded SARS-CoV-2 (COVID-19) mRNA BNT-162b2 vac 2/2/19 Recorded pneumococcal 23-valent vaccine 12/02/20 Recorded pneumococcal [...] tablet, 2 Refills, Maintenance, 12/15/21 20:42:00 EDT, [facility] #[id number], 152.4, cm, 11/24/21 14:39:00 EDT, Height Start Date: 12/15/21 Status: Ordered atorvastatin 40 mg oral tablet 1 tablet, By Mouth, Daily, # 90 tablet, 1 Refills, Maintenance, 06/11/22 9:41:00 EDT, [facility] #[id number], 152.4, cm, 02/23/22 15:19:00 EST, Height Start Date: 06/11/22 Status: Ordered Centrum Silver 1 tablet, By Mouth, Daily, 0 Refills, Maintenance, 06/12/15 17:52:27 Start Date: 06/12/15 Stop Date: 07/12/15 Status: Ordered levothyroxine 0.05 mg oral tablet 1 tablet, By Mouth, Daily, # 90 tablet, 1 Refills, Maintenance, 04/25/22 17:40:00 EST, [facility] #[id number], 152.4, cm, 02/23/22 15:19:00 EST, Height Start Date: 04/25/22 Status: Ordered lisinopril 30 mg oral tablet 1 tablet = 30 mg, By Mouth, Daily, # 90 tablet, 2 Refills, Maintenance, 02/23/22 15:23:00 EST, Tablet, [facility] #[id number], increase in dose, 152.4, cm, 02/23/22 15:19:00 EST, Height Start Date: 02/23/22 Stop Date: 11/20/22 Status: Ordered venlafaxine 75 mg oral capsule, extended release 75 mg, 1, capsule, By Mouth, Daily, # 90 capsule, Refills 3, Tot. Refills 3, Maintenance, 07/11/22 9:39:00 EDT, Route to Pharmacy Electronically, [facility] #[id number], dose lowered back down.,152.4, cm, 07/05/22 10:56:00 [...] [Reference Range]: 1 2 Height 152.4 cm (07/05/22 10:56 AM) 152.4 cm (07/05/22 10:51 AM) Weight 56.9 kg (07/05/22 10:51 AM) Oxygen Saturation [94-100 %] 96 % (07/05/22 10:51 AM) Pulse Rate [55-90 bpm] 86 bpm (07/05/22 10:56 AM) 84 bpm (07/05/22 10:51 AM) Body Mass Index [18.5-24.99 kg/m2] 24.5 kg/m2 (07/05/22 10:51 AM) Blood Pressure [90-138/55-84 mm Hg] 130/ 84mm Hg (07/05/22 10:56 AM) 142/90mm Hg *H* (07/05/22 10:51 AM) Mode of Delivery (Oxygen) Room air (07/05/22 10:51 AM) Blood pressure sites Arm, left (07/05/22 10:56 AM) Arm, left (07/05/22 10:51 AM) Social History Social History Type Response Smoking Status Never (less than 100 in lifetime) entered on: 06/27/19 Sex Note * Kat Haines: PERFORM, SIGN, VERIFY Event Display: Patient Education/Instruction Authored Date: [id number] [facility] *No [facility] Clinical Summary Name ZAYDA BARGER Age 87 Years 1935 PCP Orlin Hollingsworth MD PCP Visit Date 07/05/2022 10:44:00 Additional Instructions: Scheduled Appointments?? Future Appointments ?*No[facility] ?[address]??[place],??[place],??[address] ?Phone:??--?Fax:??-- ?Appt. Date:??09/06/2022?10:40 AM ?Scheduled Provider:??Orlin Hollingsworth MD Follow-Up Instructions ?? Diagnosis Medications: Please continue your medications until treatment is completed or stopped by your provider. Discuss any questions related to medications with your provider. Medications to Continue Taking That Have Changed [facility] #[id number], [address] [place] [id number], [phone] - Venlafaxine (venlafaxine 150 mg oral capsule, extended release) 1 capsule Oral Daily for 90 Days.Refills: 3. Next Dose: Medications to Continue with No Changes These medications were not printed or sent to your pharmacy Atenolol (atenolol 100 mg oral tablet) 1 tab(s) Oral Daily. Refills: 2. Next Dose: Atorvastatin (atorvastatin 40 mg oral tablet) 1 tab(s) Oral Daily. Refills: 1. Next Dose: Levothyroxine (levothyroxine 0.05 mg oral tablet) 1 tab(s) Oral Daily. Refills: 1. Next Dose: Lisinopril (lisinopril 30 mg oral tablet) 1 tab(s) Oral Daily for 90 Days. Refills: 2. Next Dose: Multivitamin With Minerals (Centrum Silver) 1 tab(s) Oral Daily for 30 Days. Next Dose: Allergy Info:?? No Known Medication Allergies Medications Given This Visit Future Orders ?CBC w/ Differential? Order Date:07/05/22?- Complete on or after?07/05/22 ?ALT? Order Date:07/05/22?- Complete on or after?07/05/22 ?Thyroid Panel? Order Date:07/05/22?- Complete on or after?07/05/22 ?AST? Order Date:07/05/22?- Complete on or after?07/05/22 ?Ferritin? Order Date:07/05/22?- Complete on or after?07/05/22 ?Iron + Iron Binding Capacity? Order Date:07/05/22?- Complete on or after?07/05/22 ?Lipid Panel? Order Date:07/05/22?- Complete on or after?07/05/22 ?Basic Metabolic Panel? Order Date:07/05/22?- Complete on or after?07/05/22 Vital Signs Height 152.4 cm Weight 56.9 kg BMI 24.5 kg/m2 Blood Pressure 130 mm Hg/84 mm Hg Temperature Pulse Rate 86 bpm Respiratory Rate 02 Sat Mode of Delivery 96 %/Room air You can now view a summary of your hospital visit from the comfort of your home through a free online portal called [employer]. [employer] is a website that allows you to securely view your medical information including discharge summary, medications and follow-up visits. ??You can alsosend a secure electronic message to your doctor???s office to request appointments, renew medications or just ask a question. You can enroll at [email or web address] or register during your next office [...] primary care provider, you may find a [facility] provider by calling [facility] [employer] Link at [phone]. For information about the plan of care including goals and instructions for your diagnosis, please see the patient education orders section of this document. Patient Education Materials?? The content of this educational material or handout may have been modified, supplemented, or adapted from its original content and format to support your individualized medical care. Additional Provider Instructions: 1. continue monitoring your BP once a week, please write the levels down in a notebook or diary andbring with you, when you see me next time. 2. increase venlafaxine to 150mg daily. You may take 2 of the 75mg capsule so you do not waste it. A new prescription for the 150mg capsule was sent to your pharmacy. 3. keep well hydrated. 4. repeat fasting lab work, a week before your next appointment in 2 months time. Patient Care team information Care Team Personnel Name: Orlin Hollingsworth MD Position: [facility] Primary Care Physician Member Role: PCP Address: Address: [address] [place] [address] Adult [place] [address]- Care Team Related Persons Name: DERRELL FLORES Name: LACY BARGER Address: home [address] [place] [address]
--- OUTSIDE RECORDS SUMMARY | 2023-12-10 21:11 | XMS_ITS | Continuity of Care Document ---
Author Organization [facility] Address [address] [place] [address]- Care Team Providers Care Telephone Operator Receptionist Name Role Phone Orlin Hollingsworth MD Primary Care Physician [facility] Date(s): 07/02/19 - 07/12/19 [facility] [address] [place] [address]- [facility] Attending Physician: Eleazar Jackson Admitting [...] 3 Refills, Maintenance, 06/27/19 14:24:00 EDT, Tablet, [facility] #[id number], 152.4, cm, 05/17/19 11:32:00 EST, Height Start Date: 06/27/19 Stop Date: 06/21/20 Status: Ordered atorvastatin 40 mg oral tablet 1 tablet = 40 mg, By Mouth, Daily, # 90 tablet, 3 Refills, Maintenance, 06/27/19 14:23:00 EDT, Tablet, [facility] #[id number], 152.4, cm, 05/17/19 11:32:00 EST, Height Start Date: 06/27/19 Stop Date: 06/21/20 Status: Ordered Centrum Silver 1 tablet, By Mouth, Daily, 0 Refills, Maintenance, 06/12/15 17:52:27 Start Date: 06/12/15 Stop Date: 07/12/15 Status: Ordered levothyroxine 0.05 mg oral tablet 1 tablet = 50 mcg, By Mouth, Daily, # 90 tablet, 3 Refills, Maintenance, 06/27/19 14:24:00 EDT, Tablet, [facility] #[id number], 152.4, cm, 05/17/19 11:32:00 EST, Height Start [...]
--- OUTSIDE RECORDS SUMMARY | 2023-12-10 21:11 | XMS_ITS | Continuity of Care Document ---
Author Organization [facility] Address [address] [place] [address]- Care Team Providers Care Mill Manager Name Role Phone Orlin Hollingsworth MD Primary Care Physician En[place] [facility] [place](s): 09/28/23 - 10/05/23 [facility] [address] [place], [place] [address] Encounter Diagnosis Anorexia(Discharge Diagnosis) - 09/28/23 Attending Physician: Orlin Hollingsworth MD Allergies, Adverse Reactions, Alerts No Known Medication Allergies Immunizations Given and Recorded Vaccine Date Status Refusal Reason SARS-CoV-2(COVID-19)mRNA-LNP vac([id number]) 06/27/23 Recorded SARS-CoV-2(COVID-19)mRNA-LNP vac([id number]) 12/23/22 Recorded RSV vaccine, preF A-preF B, [...] influenza virus vaccine, inactivated 11/28/14 César rded [id number] 12y+ bivalent booster vax 09/15/22 Recorded [id number] 12y+ bivalent booster vax 12/31/21 Recorded SARS-CoV-2 [...] Maintenance,08/10/23 7:37:00 EDT, Route to Pharmacy Electronically, [facility] #[id number], Partial fill upon patient request if the prescription is for a hernandez... Start Date: 08/10/23 Stop Date: 12/08/23 Status: Ordered atenolol 100 mg oral tablet 1 tablet, By Mouth, Daily, # 90 tablet, 3 Refills, Maintenance, 09/06/22 10:55:00 EDT, [facility] #[id number], 152.4, cm, 09/06/22 10:53:00 EDT, Height Start Date: 09/06/22 Stop Date: 09/01/23 Status: Ordered atorvastatin 40 mg oral tablet 1 tablet, By Mouth, Daily, # 90 tablet, 1 Refills, Maintenance, 08/07/23 14:17:00 EDT, [facility] #[id number], 152.4, cm, 03/23/23 14:42:00 EST, Height Start [...] tablet, 3 Refills, Maintenance, 09/29/23 12:10:00 EDT, [facility] #[id number], 152.4, cm, 09/28/23 15:10:00 EDT, Height, 55.1, kg, 09/28/23 15:03:00 EDT, Dry Weight Start Date: 09/29/23 Stop Date: 09/23/24 Status: Ordered lisinopril 30 mg oral tablet 1 tablet = 30 mg, By Mouth, Daily, # 90 tablet, 4 Refills, Maintenance, 09/29/23 12:10:00 EDT, Tablet, [facility] #[id number], increase in dose, 152.4, cm, 09/28/23 15:10:00 EDT, Height, 55.1, kg, 09/28/23 15:03:00 EDT, Dry Weight Start Date: 09/29/23 Stop Date: 12/22/24 Status: Ordered venlafaxine 75 mg oral capsule, extended release 75 mg, 1, capsule, By Mouth, Daily, # 90 capsule, Refills 1, Tot. Refills 1, Maintenance, 07/26/23 11:09:00 EDT, Route to Pharmacy Electronically, [facility] #[id number], dose lowered back down., 152.4, cm, 03/23/23 [...] Confirmed Active 1CT chest at [facility] Diagnosis Diagnosis Type Effective Dates Health Status Clini shai Service Informant Anorexia Discharge Diagnosis 09/28/23 Vital Signs Most recent to oldest [Reference Range]: 1 2 Height 152.4 cm (09/28/23 3:10 PM) 152.4 cm (09/28/23 3:03 PM) Weight 55.1 kg (09/28/23 3:03 PM) Oxygen Saturation [94-100 %] 95 % (09/28/23 3:03 PM) Pulse Rate [55-90 bpm] 89 bpm (09/28/23 3:03 PM) Body Mass Index [18.5-24.99 kg/m2] 23.72 kg/m2 (09/28/23 3:03 PM) Blood Pressure [90-138/55-84 mm Hg] 116/ 64mm Hg (09/28/23 3:10 PM) 125/81mm Hg (09/28/23 3:03 PM) Blood pressure sites Arm, left (09/28/23 3:10 PM) Arm, left (09/28/23 3:03 PM) Dry Weight 55.1 kg (09/28/23 3:03 PM) Weight Obtained Via Standing scale (09/28/23 3:03 PM) Social History Social History Type Response Smoking Status Never (less than 100 in lifetime) entered on: 06/27/19 Sex Note * Nidia Holley: PERFORM Event Display: Patient Education/Instruction Authored Date: [id number] Ambulatory Adult Visit Summary [facility] [address] [place] [address] Name: ZAYDA BARGER : 1935?? Visit: 09/28/2023 14:50?? Ambulatory Visit Instructions ?? Your Care Team Primary Care Provider Orlin Hollingsworth MD? This Visit Provider Orlin Hollingsworth MD Your Diagnosis White coat syndrome with hypertension Hyperglycemia Hypercholesterolemia Generalized anxiety disorder Alcohol abuse Depression, major, recurrent, mild Insomnia Macrocytosis Anorexia Vitals Signs Pulse Rate: 89 bpm Height: 152.4 cm Systolic Blood Pressure: 116 mm Hg Weight: 55.1 kg Diastolic Blood Pressure: 64 mm Hg Body Mass Index: 23.72 kg/m2 Oxygen Saturation: 95 % Body surface area: 1.53 What to do next Instructions From Your Provider 1. no changes to your BP medications.?? Continue taking your amlodipine 2.5mg daily at bedtime. 2. increase buspirone 10mg from 1 to 2 tablets daily in evening to allow you to relax, and help with sleep.?? 3. if you change your mind on getting home psychotherapy, let me know. 4. have food available in??your kitchen always??,??that is easy to grab and serve and eat. ?? Follow-Up Appointments Follow Up with??Orlin Hollingsworth MD When:??01/04/2024 03:20 PM EDT Where: [address] [facility] [place] [address]- Future Orders ALT - Routine, Once, 09/28/23 15:13:00 EDT, Future Order, [facility], Blood?? AST - Routine, Once, 09/28/23 15:13:00 EDT, Future Order, [facility], Blood?? HDL Cholesterol - Routine, Once, 09/28/23 15:14:00 EDT, Future Order, [facility], Blood?? Cholesterol Total - Routine, Once, 09/28/23 15:14:00 EDT, Future Order, [facility], Blood?? Direct LDL - Routine, Once, 09/28/23 15:14:00 EDT, Future Order, [facility], Blood?? Basic Metabolic Panel - Routine, Once, 09/28/23 15:14:00 EDT, Future Order, [facility], Blood?? Hemoglobin A1C (Monitoring) (Hemoglobin A1c, (Diagnostic)) - Routine, Once, 09/28/23 15:14:00 EDT, Future Order, [facility], Blood?? Thyroid Panel - Routine, Once, 09/28/23 15:14:00 EDT, Future Order, [facility], Blood?? Folate Level - Routine, Once, 09/28/23 15:14:00 EDT, Future Order, [facility], Blood?? Homocysteine Level - Routine, Once, 09/28/23 15:14:00 EDT, Future Order, [facility], Blood?? Vitamin B12 Level (B12 Vitamin Level) - Routine, Once, 09/28/23 15:14:00 EDT, Future Order, [facility], Blood?? Methylmalonic Acid - Routine, Once, 09/28/23 15:14:00 EDT, Future Order, [facility], Blood?? Medications The list below reflects the information in our records and provided by you today along with any changes made during this visit. Please continue your medications until treatment is completed or stopped by your provider. If this is different from the information you have or there are other questions,please contact the prescribing provider. What How Much When Instructions Changed BusPIRone (busPIRone 10 mg oral tablet) 2 tab(s) Oral Daily at Bedtime Duration: 90 Days Unchanged Amlodipine (amLODIPine 2.5 mg oral tablet) 1 [...] 1 capsule Oral Daily Duration: 90 Days Test Performed Below is a partial list of the tests performed during your Visit. You may have had other tests and procedures not included in this list. Please discuss all test results with your provider. ALT?-- Results Pending -- AST?-- Results Pending -- B12 Vitamin Level?-- Results Pending -- Basic Metabolic Panel?-- Results Pending -- Cholesterol Total?-- Results Pending -- Direct LDL?-- Results Pending -- Folate Level?-- Results Pending -- HDL Cholesterol?-- Results Pending -- Hemoglobin A1c, (Diagnostic)?-- Results Pending -- Homocysteine Level?-- Results Pending -- Methylmalonic Acid?-- Results Pending -- Thyroid Panel?-- Results Pending -- You will be contacted within 72 hours with your results. Medications and Immunizations Administered Medications Given During [...] are strongly encouraged to quit. Please call [employer] at [phone] or [phone] ([phone]) or log in to [email or web address] for referrals to smoking cessation programs. ?? The National Suicide Prevention Hotline is available 10/10 if you or someone you know needs to find a reason to keep living. By calling 1-598-213-[place] [employer] (5594) you'll be connected to a skilled, trained counselor at a crisis center in your area. [employer] You can view and manage your care through the patient portal or by using a health care jae of your choosing. [employer] is a website that allows you to securely view your medical information including your hospital discharge summary, office visit summaries, medications and follow-up visits. You can also request appointments, renew medications, and request access to your medical information using a health care jae of your choosing, or just ask a question. You can enroll at [email or web address] or register during your next office visit. [facility], in keeping with [facility] guidance, no longer requires face masks for [...] primary care provider, you may find a [facility] [employer] provider by calling [employer] at [phone]. Patient Care team information Care Team Personnel Name: Orlin Hollingsworth MD Position: [facility] Physician - Primary Care Member Role: PCP Address: Address: [address] [place] [address] Adult & [place] [address]- Care Team Related Persons Name: DERRELL FLORES Name: LACY BARGER Address: home [address] [place] [address]
--- OUTSIDE RECORDS SUMMARY | 2023-12-10 21:11 | XMS_ITS | Continuity of Care Document ---
Author Organization [facility] Address [address] [place] [address]- Care Team Providers Care Mold Shifter Name Role Phone Darrick APONTE, Orlin Primary Care Physician [place] [facility] [place]16/20 - 07/16/20 [facility] [address] [place], [place] [address] Attending Physician: AdmEleazar stauffer Admitting Physician: Admtr, Ar8 Referring Physician: Admtr, [...] 3 Refills, Maintenance, 06/27/19 14:24:00 EDT, Tablet, [facility] #[id number], 152.4, cm, 05/17/19 11:32:00 EST, Height Start Date: 06/27/19 Stop Date: 06/21/20 Status: Ordered atorvastatin 40 mg oral tablet 1 tablet = 40 mg, By Mouth, Daily, # 90 tablet, 3 Refills, Maintenance, 06/27/19 14:23:00 EDT, Tablet, [facility] #[id number], 152.4, cm, 05/17/19 11:32:00 EST, Height Start Date: 06/27/19 Stop Date: 06/21/20 Status: Ordered Centrum Silver 1 tablet, By Mouth, Daily, 0 Refills, Maintenance, 06/12/15 17:52:27 Start Date: 06/12/15 Stop Date: 07/12/15 Status: Ordered levothyroxine 0.05 mg oral tablet 1 tablet = 50 mcg, By Mouth, Daily, # 90 tablet, 3 Refills, Maintenance, 06/27/19 14:24:00 EDT, Tablet, [facility] #[id number], 152.4, cm, 05/17/19 11:32:00 EST, Height Start [...]
--- OUTSIDE RECORDS SUMMARY | 2023-12-10 21:11 | XMS_ITS | Continuity of Care Document ---
Author Organization [facility] Address [address] [place] [address]- Care Team Providers Care Preparole Counseling Aide Name Role Phone Orlin Hollingsworth MD Primary Care Physician Encounter [facility] Date(s): 08/15/23 - 09/14/23 [facility] [address] [place], [place] [address] Attending Physician: Eleazar Jackson Admitting Physician: Admtr, Eleazar Referring Physician: Admtr, Ar8 Allergies, Adverse Reactions, [...] virus vaccine, inactivated 11/28/14 César rded SARS-CoV-2(COVID-19)mRNA-LNP vac([id number]) 12/23/22 Recorded [id number] 12y+ bivalent booster vax 09/15/22 Recorded [id number] 12y+ bivalent booster vax 12/31/21 Recorded SARS-CoV-2 [...] Maintenance,08/10/23 7:37:00 EDT, Route to Pharmacy Electronically, [email or web address] #[id number], Partial fill upon patient request if the prescription is for a hernandez... Start Date: 08/10/23 Stop Date: 12/08/23 Status: Ordered atenolol 100 mg oral tablet 1 tablet, By Mouth, Daily, # 90 tablet, 3 Refills, Maintenance, 09/06/22 10:55:00 EDT, [email or web address] #[id number], 152.4, cm, 09/06/22 10:53:00 EDT, Height Start Date: 09/06/22 Stop Date: 09/01/23 Status: Ordered atorvastatin 40 mg oral tablet 1 tablet, By Mouth, Daily, # 90 tablet, 1 Refills, Maintenance, 08/07/23 14:17:00 EDT, [facility] #[id number], 152.4, cm, 03/23/23 14:42:00 EST, Height Start Date: 08/07/23 Status: Ordered busPIRone 10 mg oral tablet 10 mg, 1, tablet, By Mouth, Daily at bedtime, # 90 tablet, Refills 1, Tot. Refills 1, Maintenance, 08/15/23 15:55:00 EDT, Route to Pharmacy Electronically, [facility] #[id number], Partial fill upon patient request if the prescription is for a hernandez... Start Date: 08/15/23 Stop Date: 02/11/24 Status: Ordered Centrum Silver 1 tablet, By Mouth, Daily, 0 Refills, Maintenance, 06/12/15 17:52:27 Start Date: 06/12/15 Stop Date: 07/12/15 Status: Ordered levothyroxine 0.05 mg oral tablet 1 tablet, By Mouth, Daily, # 90 tablet, 3 Refills, Maintenance, 09/06/22 10:56:00 EDT, [email or web address] #[id number], 152.4, cm, 09/06/22 10:53:00 EDT, Height Start Date: 09/06/22 Stop Date: 09/01/23 Status: Ordered lisinopril 30 mg oral tablet 1 tablet = 30 mg, By Mouth, Daily, # 90 tablet, 4 Refills, Maintenance, 09/06/22 10:55:00 EDT, Tablet, [email or web address] #[id number], increase in dose, 152.4, cm, 09/06/22 10:53:00 EDT, Height Start Date: 09/06/22 Stop Date: 11/30/23 Status: Ordered venlafaxine 75 mg oral capsule, extended release 75 mg, 1, capsule, By Mouth, Daily, # 90 capsule, Refills 1, Tot. Refills 1, Maintenance, 07/26/23 11:09:00 EDT, Route to Pharmacy Electronically, [email or web address] #[id number], dose lowered back down., 152.4, cm, 03/23/23 [...] 100 in lifetime) entered on: 06/27/19 Sex Laboratory * Event Display: Non Lab Results Authored Date: * Event Display: Non BH Lab Results Authored Date: CT Chest * Event Display: CT Scan Chest Authored Date: MG Breast Views * Event Display: MM Mammogram, Non- BH Authored Date: Patient Care team information Care Team Personnel Name: Orlin Hollingsworth MD Position: [facility] Physician - Primary Care Member Role: PCP Address: Address: [address] [place] [address] Adult [place] [address]- Care Team Related Persons Name: DERRELL FLORES Name: LACY BARGER Address: home [address] [place] [address]
[2023-12-10] MEDS: Silver Nitrate Applicator STICK..EA. 1 APPL TOPICAL (21:36)
[2023-12-10 21:52] VITALS: BP 156/81; PULSE 58; RESP 16; TEMP 36.7; O2SAT 97
== END 2023-12-10 21:53 | disposition home or self-care (01) ==
PROVIDERS: Emergency Provider Internal Medicine; PCP Internal Medicine
DX: R04.0 Epistaxis (principal); I10 Essential (primary) hypertension
CPT/HCPCS: 30901; 99282; 99284

== ENCOUNTER 2024-01-15 22:55 | Emergency (ER) | payer MEDICARE, SELFPAY ==
--- NOTE | 2024-01-15 | ECG_ITS ---
Test Reason : RIB PAIN Blood Pressure : / mmHG Vent. 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 rate has decreased BY 28 BPM Referred By: Generic ED Physician Electronically Signed By:MONTRELL HARMAN
--- NOTE | ~2024-01-15 | XR_ITS ---
EXAMINATION: XR CHEST 1 VIEW, XR RIBS 3 VIEWS MINIMUM WITH CHEST RIGHT CLINICAL INFORMATION: right rib pain COMPARISON: CT of abdomen and pelvis 04/25/2019 TECHNIQUE: PA chest and 3 view series right ribs. FINDINGS: Chest: A large hiatal hernia is identified. Pleura minimal coarse horizontally oriented reticular opacities are present in the right lung base are suspicious for minimal platelike atelectasis. Normal pattern of pulmonary vasculature. Intact right clavicle. Right RIBS: No rib fractures or suspicious rib lesions noted. Partial visualization made of thoracic kyphosis and multilevel mild-moderate anterior endplate osteophytosis of the thoracic spine. XR/XR chest 1V IMPRESSION: Chest and right rib series: *No acute cardiopulmonary abnormalities. *No rib fractures identified. *Large hiatal hernia. Electronically signed by: Wilman Long MD 01/16/2024 12:51 AM EDT
--- NOTE | ~2024-01-15 | XR_ITS ---
EXAMINATION: XR CHEST 1 VIEW, XR RIBS 3 VIEWS MINIMUM WITH CHEST RIGHT CLINICAL INFORMATION: right rib pain COMPARISON: CT of abdomen and pelvis 04/25/2019 TECHNIQUE: PA chest and 3 view series right ribs. FINDINGS: Chest: A large hiatal hernia is identified. Pleura minimal coarse horizontally oriented reticular opacities are present in the right lung base are suspicious for minimal platelike atelectasis. Normal pattern of pulmonary vasculature. Intact right clavicle. Right RIBS: No rib fractures or suspicious rib lesions noted. Partial visualization made of thoracic kyphosis and multilevel mild-moderate anterior endplate osteophytosis of the thoracic spine. XR/XR ribs RT min 3V w CXR1V IMPRESSION: Chest and right rib series: *No acute cardiopulmonary abnormalities. *No rib fractures identified. *Large hiatal hernia. Electronically signed by: Wilman Long MD 01/16/2024 12:51 AM EDT
[2024-01-15 22:59] VITALS: BP 150/98; BP 165/89; PULSE 59; PULSE 60; RESP 18; TEMP 36.9; O2SAT 95; O2SAT 97; BMI 23.8
--- NOTE | 2024-01-15 23:24 | PC.NURSE ---
pt biba from [place]. pt is a&ox4, respirations even and unlabored. pt is normal sinus 59-60bpm on tele. pt reports r rib pain radiating to back since last night. pt states she was laying in bed on r side when pain started and has not subsided. ems placed 20g in left forearm. pt denies any recent fall or trauma. pt denies chest pain/sob.
[2024-01-15 23:26] LABS: MANUAL DIFF FLAG NO
[2024-01-15 23:27] LABS: Basophils Absolute Auto 0.1 X10*3/uL (0.0-0.2); Basophils Percent Auto 0.7 % (0-2); Eosinophils Absolute Auto 0.3 X10*3/uL (0.0-0.4); Eosinophils Percent Auto 3.7 % (0-4); Hematocrit 37.4 % (37.0-47.0); Hemoglobin 12.8 g/dl (12.0-16.0); Imm Gran Abs Auto 0.01 X10*3/uL (0.00-0.03); Imm Gran Pct Auto 0.1 % (0.0-0.4); Lymphocytes Absolute Auto 1.7 X10*3/uL (1.2-4.9); Lymphocytes Percent Auto 24.2 % (20-40); Mean Corpuscular HGB Conc 34.2 g/dl (31.0-35.0); Mean Corpuscular Volume 96.4 fL (80.0-98.0); Mean Platelet Volume 9.2 fL (9.4-12.3); Monocytes Absolute Auto 0.8 X10*3/uL (0.1-1.2); Monocytes Percent Auto 11.1 % (2-11); Neutrophils Absolute Auto 4.3 x10*3/uL (2.0-8.3); Neutrophils Percent Auto 60.2 % (45-73); Platelet Count 193 X10*3/uL (160-400); Red Blood Count 3.88 X10*6/uL (4.20-5.50); Red Cell Distribution Width 12.7 % (11.0-16.0); White Blood Count 7.1 X10*3/uL (4.8-10.8)
[2024-01-15 23:50] LABS: Troponin-I High Sensitivity < 2.7 ng/L (<3.5-17.0)
[2024-01-15 23:51] LABS: Alanine Aminotransferase 15 U/L (0-31); Albumin Level 3.6 g/dL (3.5-5.0); Alkaline Phosphatase 60 U/L (39-117); Anion Gap 7 (12-20); Aspartate Amino Transferase 24 U/L (5-31); Bilirubin Total 0.4 mg/dL (0.0-1.0); Blood Urea Nitrogen 12 mg/dL (9-16); Carbon Dioxide 27 mmol/L (22-29); Chloride 103 mmol/L (96-108); Creatinine Clr Calc Pharmacy 36.2; Estimated Glomerular Filt Rate > 60; Glucose Random 106 mg/dL (60-115); Potassium 3.7 mmol/L (3.3-5.1); Sodium 133 mmol/L (135-145)
[2024-01-16] VITALS (9 sets, daily range): BP systolic 153–203; BP diastolic 88–106; PULSE 55–87; RESP 16–18; TEMP 37.1; O2SAT 98
--- NOTE | 2024-01-16 00:13 | ED_ITS ---
HPI - General Adult General Chief complaint: General Medical Stated complaint: from assisted living, rib pain radiating to back Time Seen by Provider: 01/16/24 00:06 Source: patient and EMS Mode of arrival: EMS Limitations: no limitations History of Present Illness ED Provider: Dr. Shona Canales HPI narrative: Patient comes to the emergency room complaining of rib pain on the right side. Patient states that whenever she lays on the right side it hurts more. Patient denies any falls, denies any recent respiratory infections, coughing. Patient denies fever or chills. Patient took Tylenol without any significant relief. Patient denies chest pain or shortness of breath Related Data Previous Rx's ?Medication ?Instructions ?Recorded cefuroxime axetil 250 mg tablet 250 mg PO BID 7 days #14 tabs 12/08/23 acetaminophen 650 mg 650 mg PO Q8H PRN fever or pain 01/16/24 tablet,extended release #20 tabs cyclobenzaprine 5 mg tablet 5 mg PO TID PRN muscle spasm #9 01/16/24 tabs Allergies Allergy/AdvReac Type Severity Reaction Status Date / Time No Known Allergies Allergy Verified 01/15/24 23:06 [No Known Allergies*] Review of Systems 2 Review of Systems: Constitutional : No Weight loss, No Fever, No Chills, No Night Sweats, No Fatigue, No Malaise ENT/Mouth : No Hearing loss, No Ear Pain, No Nasal Congestion, No Sinus Pain, No Hoarseness, No sore throat, No Rhinorrhea, No Swallowing Difficulty Eyes: No Eye Pain, No Swelling, No Redness, No Foreign Body, No Discharge, No Vision Changes Cardiovascular : No Chest Pain, No SOB, No Dyspnea on Exertion, No Orthopnea, No Edema, No Palpitations Respiratory : No Cough, No Sputum, No Wheezing, No Smoke Exposure, No Dyspnea Gastrointestinal : No Nausea, No Vomiting, No Diarrhea, No Constipation, No abdominal Pain, No Hematochezia, No Melena Genitourinary : no irregular bleeding, No Dysuria, No Urinary Frequency, No Hematuria, No Urinary Incontinence, No Urgency, No Flank Pain, No Urinary Flow Changes, No Hesitancy Musculoskeletal : Complaining of right-sided rib pain, No joint pain, No Myalgias, No Joint Swelling Skin : No Skin Lesions, No rash Neuro : No Weakness, No Numbness, No Paresthesias, No Loss of Consciousness, No Dizziness, No Headache Psych : No Anxiety/Panic, No Depression, No SI/HI/AH/VH, No Social Issues, Heme/Lymph: No Bruising, No Bleeding,No Lymphadenopathy Endocrine : No Polyuria, No Polydipsia, No Temperature Intolerance [facility] Past Medical History Medical History Hyperlipidemia Hypothyroidism Hypertension Social History Social History Alcohol intake: current Alcohol intake frequency: holidays/special occasions only Alcohol type: wine Smoked in Last 30 Days: No Use of substances other than those prescribed or required for medical reasons: No Advance Directives: No Advance Directives Information Provided: Yes Do you have a plan to hurt others: No Plan Physical Exam ED Vital Signs: Vital Signs - 24 hr 01/15/24 22:59 01/16/24 01:50 Temperature 98.4 F 98.8 F Pulse Rate 59 87 Respiratory Rate 18 18 Blood Pressure 165/89 H 203/88 H Pulse Oximetry 97 98 Oxygen Delivery Method Room Air Room Air BMI result Body Mass Index 23.8 Const Other: Appearance: Alert. Oriented X3. No acute distress. Well-appearing Eyes: Pupils equal, round and reactive to light. ENT: Pharynx normal. Neck: Normal inspection. Neck supple. No lymph nodes noted. No crepitus CVS: Normal heart rate and rhythm. Pulses normal. Normal S1 and S2 Respiratory: No respiratory distress. Breath sounds normal. No Wheezing. No rales Abdomen: Soft and nontender. No rigidity. No distention. Musculoskeletal: Reproducible pain to palpation on the lateral aspect of the right ribs. Reproducible pain with patient twisting her thorax right to left and laying on the right side of her chest. Skin: Skin warm and dry. Normal skin color. Normal skin turgor. Extremities: No lower extremity edema. No Lacerations. No Rash Neuro: Oriented X 3. No motor deficit. No sensory deficit. Moving all extremities. No slurred speech. CN 2 through 12 grossly intact Psych: calm, cooperative, normal affect Medications Administered Discontinued Medications Generic Name Dose Route Start Last Admin Trade Name Freq PRN Reason Stop Dose Admin Tramadol HCl 50 mg 01/16/24 00:14 01/16/24 00:19 Tramadol Hcl 50 Mg Tablet PO 01/16/24 00:15 50 mg ONCE ONE Administration Medical Decision Making Medical Decision Making [facility] Narrative: My interpretation of labs, normal hematology and chemistry, troponin negative, EtOH negative -x-ray of the ribs and chest, no acute cardiopulmonary abnormalities, no rib fractures, large hiatal hernia -patient feeling better after a dose of tramadol. -as patient was getting ready to be picked up by the ambulance, last set of vitals was taken, patient's blood pressure above 200 systolic. Patient denies headache, chest pain or shortness of breath. Patient states that she is compliant with her medications, takes amlodipine 2.5 mg and lisinopril. -patient was given amlodipine 10 mg here in the ED. Differential Diagnosis Differential Diagnoses: The differential diagnosis associated with the presentation includes (Rib fracture, musculoskeletal pain, hypertension, hypertensive urgency) Admission/Observation Consideration of admission/observation: Escalation of care including admission/observation considered (Given patient's elevated blood pressure, observation was considered) Lab Data [facility] Lab Attestation statement: I reviewed the patient's lab results. 01/15/24 23:22 01/15/24 23:22 Labs: Lab Results 01/15/24 Range/Units 23:22 WBC 7.1 (4.8-10.8) X10*3/uL RBC 3.88 L (4.20-5.50) X10*6/uL Hgb 12.8 (12.0-16.0) g/dl Hct 37.4 (37.0-47.0) % MCV 96.4 (80.0-98.0) fL MCH 33.0 (27.0-33.0) pg MCHC 34.2 (31.0-35.0) g/dl RDW 12.7 (11.0-16.0) % Plt Count 193 (160-400) X10*3/uL MPV 9.2 L (9.4-12.3) fL Immature Gran % (Auto) 0.1 (0.0-0.4) % Neut % (Auto) 60.2 (45-73) % Lymph % (Auto) 24.2 (20-40) % Grainger % (Auto) 11.1 H (2-11) % Eos % (Auto) 3.7 (0-4) % Baso % (Auto) 0.7 (0-2) % Lymph # (Auto) 1.7 (1.2-4.9) X10*3/uL Grainger # (Auto) 0.8 (0.1-1.2) X10*3/uL Eos # (Auto) 0.3 (0.0-0.4) X10*3/uL Baso # (Auto) 0.1 (0.0-0.2) X10*3/uL Abs Immat Gran (auto) 0.01 (0.00-0.03) X10*3/uL Absolute Neuts (auto) 4.3 (2.0-8.3) x10*3/uL Absolute Nucleated RBC 0.000 (0.0-0.012) X10*3/uL Nucleated RBC % (auto) 0.0 (0.0-0.2) /100WBC Sodium 133 L (135-145) mmol/L Potassium 3.7 (3.3-5.1) mmol/L Chloride 103 (96-108) mmol/L Carbon Dioxide 27 (22-29) mmol/L Anion Gap 7 L (12-20) BUN 12 (9-16) mg/dL Creatinine 0.88 (0.5-1.4) mg/dL Estim Creat Clear Calc 36.2 Estimated GFR > 60 Random Glucose 106 (60-115) mg/dL Calcium 8.8 D (8.4-10.2) mg/dL Total Bilirubin 0.4 (0.0-1.0) mg/dL AST 24 (5-31) U/L ALT 15 (0-31) U/L Alkaline Phosphatase 60 (39-117) U/L Troponin I High Sens < 2.7 (<3.5-17.0) ng/L Total Protein 6.0 L (6.5-8.0) g/dL Albumin 3.6 (3.5-5.0) g/dL Ethyl Alcohol < 10 mg/dL Independent Interpretation I performed an independent interpretation of an: Plain X-Ray Radiology Impression Discussion of test interpretation with radiology: I have reviewed the radiologist's reading. Radiologist Impression: Chest: A large hiatal hernia is identified. Pleura minimal coarse horizontally oriented reticular opacities are present in the right lung base are suspicious for minimal platelike atelectasis. Normal pattern of pulmonary vasculature. Intact right clavicle. Right RIBS: No rib fractures or suspicious rib lesions noted. Partial visualization made of thoracic kyphosis and multilevel mild-moderate anterior endplate osteophytosis of the thoracic spine. XR/XR ribs RT min 3V w CXR1V IMPRESSION: Chest and right rib series: *No acute cardiopulmonary abnormalities. *No rib fractures identified. *Large hiatal hernia. Critical Care Time Critical Care Time Critical Care Time: Yes Total Critical Care Time: 35 Attestation: I have personally provided critical care time. Time includes review of lab data, radiology results, discussion with consultants, and monitoring for potential decompensation. Intervention performed as documented. Discharge Plan Discharge Clinical Impression: Costochondritis, Hypertension Patient Disposition: Home, Self-Care Instructions: Costochondritis (ED) Additional Instructions: Please follow-up with your primary care physician tomorrow. If you have any worsening or new symptoms, please return to the emergency room or call 911 Prescriptions: New cyclobenzaprine 5 mg tablet 5 mg PO TID PRN (Reason: muscle spasm) Qty: 9 0RF acetaminophen 650 mg tablet extended release 650 mg PO Q8H PRN (Reason: fever or pain) Qty: 20 0RF No Action cefuroxime axetil 250 mg tablet 250 mg PO BID 7 Days Qty: 14 0RF Print Language: [place]
[2024-01-16 00:18] LABS: Calcium 8.8 mg/dL (8.4-10.2)
[2024-01-16] MEDS: traMADoL HCL 50 MG TABLET PO (00:19)
[2024-01-16 00:30] LABS: Ethanol < 10 mg/dL
[2024-01-16] MEDS: amLODIPine Besylate 10 MG TABLET PO (02:03)
--- NOTE | 2024-01-16 02:03 | PC.NURSE ---
on discharge pt noted to be hypertensive. aware, pt medicated per may.
[2024-01-16] MEDS: hydrALAZINE HCl 25 MG TABLET PO (03:21)
[2024-01-16] MEDS: lisinopriL 40 MG TABLET PO (04:31)
[2024-01-16] MEDS: LORazepam 1 MG TABLET PO (04:31)
--- NOTE | 2024-01-16 04:38 | PC.NURSE ---
aware of pt blood pressure, plan for dc.
== END 2024-01-16 04:57 | disposition home or self-care (01) ==
PROVIDERS: Emergency Provider Emergency Medicine
DX: M94.0 Chondrocostal junction syndrome [Tietze] (principal); R07.81 Pleurodynia; I10 Essential (primary) hypertension; E78.5 Hyperlipidemia, unspecified; E03.9 Hypothyroidism, unspecified; Z79.899 Other long term (current) drug therapy
CPT/HCPCS: 36415; 71045; 71101; 80053; 80307; 84484; 85025; 93005; 99285

== ENCOUNTER → 2024-01-15 23:01 | Outpatient (BNV) | payer MEDICARE, SELFPAY | PROVIDERS: Emergency Provider Emergency Medicine; Visit Provider Internal Medicine | DX: R00.1 Bradycardia, unspecified (principal) | CPT/HCPCS: 93010 ==